=== PATIENT | female | born 1935 | race African-American/Black ===

== ENCOUNTER 2017-06-10 22:22 | Inpatient (IN) | payer MEDICARE, MEDICAID ==
[2017-06-10] MEDS ORDERED: Propofol 1,000 MG/100 ML VIAL IV ONE (22:29)
[2017-06-10] MEDS ORDERED: Labetalol HCl 100 MG/20 ML VIAL ONE (22:43)
[2017-06-10] MEDS ORDERED: Esmolol 2,500 MG/250 ML 250 ML ONE (23:02)
--- NOTE | 2017-06-10 23:04 | CT ---
CT BRAIN WITHOUT CONTRAST: History: Stroke activation, sudden onset of altered mental status, deviation to one side. 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 The ventricular size is appropriate and the basal cisterns patent. No evidence of acute infarct, hemorrhage, midline shift or abnormal extraaxial fluid collections are seen. The bony calvarium is intact. The visualized paranasal sinuses and mastoid air cells are well a erated. IMPRESSION: 1. No CT evidence of acute intracranial process. 2. Findings were discussed with ER physician at 1045 p.m. 06-10-17. POS: [facility]
--- NOTE | 2017-06-10 23:10 | RAD ---
PORTABLE CHEST ONE VIEW: Date: 06-10-17 Time: 10:22 p.m. History: Respiratory failure. FINDINGS/IMPRESSION: Left ventricular tube tip 1.5 cm above the level of the michelle. The NG tube is at the level of the cl avicular heads and should be advanced into the stomach. Heart size is normal. No focal areas of conso lidation, pneumothorax, or pleural effusions. There are degenerative changes. This report was called over the telephone to ER physician at 10:54 p.m. POS: [facility]
[2017-06-10 23:15] LABS: CO2 Tension 23.5 mmHg (35.0-45.0); pH, Arterial 7.63 (7.35-7.45)
[2017-06-10 23:16] LABS: Actual Bicarbonate (HCO3a) 24.2 mEq/L (22-26); Base Excess (BEa) 4.2 mEq/L (0 (+/-) 2.5); Hematocrit-ABG 38.9 % (36.0-47.0); Hemoglobin (Hb) 11.9 g/dL (12.0-16.0); O2 Tension (PaO2) 569.9 mmHg (80.0-100.0)
[2017-06-10 23:17] LABS: ALV-art Gradient 108.725 (0-20); Analyzer IN Cardio ER; Calcium, Ionized 1.1 mmol/L (1.12-1.30); Puncture Site RRA
[2017-06-10 23:38] LABS: Bilirubin Negative (Negative); Blood, Urine Trace (Negative); Clarity CLEAR (Clear); Glucose, Urine (Dipstick) Negative (Negative); Leukocyte Negative (Negative); Nitrite Negative (Negative); Protein, Urine (Dipstick) Negative (Neg-Trace); Specific Gravity, Urine 1.018 (1.002-1.036); Urobilinogen 0.2 mg/dL (0.2-1.0)
[2017-06-10 23:41] LABS: Bacteria/HPF None Seen HPF (None Seen); Hyaline Casts/LPF 0-3 HYALINE CAST LPF (0-3 Hyaline); RBC/HPF 0-3 HPF (0-3); Squamous Epithelial None Seen HPF (0-3); WBC/HPF None Seen HPF (0-3)
[2017-06-10] MEDS ORDERED: Fentanyl 100 MCG/2 ML VIAL ONE (23:42)
--- NOTE | 2017-06-10 23:43 | CT ---
CT ANGIOGRAM OF THE HEAD WITH IV CONTRAST AND 3D POST PROCESSING CT ANGIOGRAM OF THE NECK WITH IV CONTRAS AND 3D POST PROCESSING CT PERFUSION OF THE HEAD: History: Altered mental status, seizure like activity, respiratory failure. FINDINGS: The vertebrae, basilar and carotid artery systems in the neck and head demonstrate good flow without significant focal stenosis, major branch occlusion or aneurysm formation. There is good blood volume on the perfusion scan with decreased mean transit time in a focal area of left MCA territory. IMPRESSION: Findings suspicious for post ischemic or postictal hyperperfusion in the left MCA territory. Findings discussed over the telephone with ER physician, Dr. Cook at 11:12 p.m. This exam was reviewed by Dr Avelino Christensen on 06/11/17 at 9 am and he concurs. POS: [facility]
[2017-06-10] MEDS ORDERED: fentaNYL Citrate/PF 2,000 MCG in Sodium Chloride 0.9% 60 ML IV SCH (23:44)
[2017-06-10 23:55] LABS: #Basophils 0.1 thou/uL (0.0-0.2); #Eosinphils 0.1 thou/uL (0.0-0.7); #Monocytes 0.3 thou/uL (0.11-0.59); #Neutrophils 4.1 thou/uL (1.40-6.50); %Basophils 0.9 % (0.0-1.0); %Lymphocytes 29.9 % (21.0-51.0); %Monocytes 4.4 % (0.0-10.0); %Neutrophils 62.9 % (42.0-75.0); Hemoglobin 13.8 g/dL (12.0-16.0); Mean Corpuscular HGB CONC 32.4 g/dL (32.0-36.0); Mean Corpuscular Hemoglobin 29.8 pg (27.0-31.0); Mean Corpuscular Volume 92.2 fl (81.0-99.0); Platelet Count 283 thou/uL (130-400); RBC Distribution Width 13.5 % (11.5-14.5); Red Blood Cell (RBC) Count 4.63 mill/uL (4.20-5.40); White Blood Cell (WBC) Count 6.5 thou/uL (4.8-10.8)
[2017-06-11 00:03] LABS: PTT 23.7 SEC (22.9-36.1); Prothrombin Time 13.2 SEC (12.0-14.7)
[2017-06-11 00:17] LABS: ALT (SGPT) 8 U/L (8-55); AST (SGOT) 18 U/L (5-34); Albumin 4.2 g/dL (3.4-4.8); Alkaline Phosphatase 99 U/L (40-150); Anion Gap 23 mmol/L (10-20); BUN (Urea Nitrogen) 15 mg/dL (9.8-20.1); Bilirubin, Total 0.9 mg/dL (0.2-1.2); Calc. Creatinine Clearance 0 mL/min (70-130); Calcium 9.8 mg/dL (7.8-10.44); Carbon Dioxide 23 mmol/L (23-31); Chloride 98 mmol/L (98-107); Estimated GFR-MDRD 52; Globulin 4.4 g/dL (2.4-3.5); Glucose 160 mg/dL (83-110); Protein, Total 8.6 g/dL (6.0-8.3); Sodium 141 mmol/L (136-145)
[2017-06-11 00:20] LABS: CKMB 2.6 ng/mL (0-6.6); Troponin I 0.024 ng/mL (< 0.028)
[2017-06-11 00:32] LABS: Potassium 2.6 mmol/L (3.5-5.1)
[2017-06-11] MEDS ORDERED: Acetaminophen 650 MG Suppository PR PRN (00:52)
[2017-06-11] MEDS ORDERED: CCU Electrolyte Replacement 1 EACH IVPB SCH (00:52)
[2017-06-11] MEDS ORDERED: Potassium Chloride 40 MEQ in Sodium Chloride 0.9% 250 ML 250 ML IVPB PRN (00:58)
[2017-06-11] MEDS ORDERED: Potassium Phosphate 15 MMOL in Sodium Chloride 0.9% 250 ML 250 ML IV PRN (00:58)
[2017-06-11] MEDS ORDERED: CCU ELECTROLYTE REPLACEMENT PROTOCOL FS PRN (00:58)
[2017-06-11] MEDS ORDERED: Potassium Chloride 40 MEQ in Premix Bag 1 BAG IVPB PRN (00:58)
[2017-06-11] MEDS ORDERED: Potassium Chloride 20 MEQ TAB PO PRN (00:58)
[2017-06-11] MEDS ORDERED: Potassium Phosphate 12 MMOL in Sodium Chloride 0.9% 250 ML 250 ML IV PRN (00:58)
[2017-06-11] MEDS ORDERED: Potassium Phosphate 9 MMOL in Sodium Chloride 0.9% 100 ML IVPB PRN (00:58)
[2017-06-11] MEDS ORDERED: Magnesium 2 GM/NS 0.9% 100 ML 2 GM in Premix Bag 1 BAG IVPB PRN (00:58)
[2017-06-11] MEDS ORDERED: Magnesium Oxide 400 MG TAB PO PRN (00:58)
[2017-06-11] MEDS ORDERED: Sedation Protocol FS SCH (01:42)
[2017-06-11] MEDS ORDERED: Propofol 1,000 MG/100 ML VIAL IV ONE (01:43)
[2017-06-11] MEDS: Potassium Chloride 40 MEQ in Sodium Chloride 0.9% 250 ML 250 ML IVPB SCH ×2 (01:49→11:07)
[2017-06-11] MEDS ORDERED: DISCONTINUE PREVIOUS NARCOTIC PAIN MEDICATIONS AND BENZODIAZEPINES FS SCH (01:50)
[2017-06-11] MEDS ORDERED: Fentanyl BOLUS 250 ML IVPB PRN (01:50)
[2017-06-11] MEDS ORDERED: Propofol 1,000 MG/100 ML VIAL IV PRN (01:50)
[2017-06-11] MEDS ORDERED: Lorazepam 2 MG/ML VIAL SLOW IVP PRN (01:50)
[2017-06-11] MEDS ORDERED: Morphine 2 MG/ML SYRINGE SLOW IVP PRN (01:50)
--- NOTE | 2017-06-11 02:11 | HP ---
PRIMARY CARE PHYSICIAN: Unknown. PRESENTING COMPLAINT: Seizures and loss of consciousness. HISTORY OF PRESENT ILLNESS: Ms. Roxie Mcmillan is an 81-year-old female with hypertension, hypothyroidism and CHF, who was at a family function earlier today after which she became altered mentally. Her family reported her face deviated to one side and she had what they thought was a seizure. EMS was immediately called and they found the patient to be vomiting and due to fears that she might be unable to protect the airway, she was intubated. Her blood pressure in the field was in the 260 systolic. At the emergency room, she was markedly hypertensive with blood pressure running between [address] brain done immediately showed no evidence of acute intracranial processes. She had a head/neck CTA with brain perfusion, which find areas of suspicious for ischemia in the MCA territory on the left. Dr. Cabezas, neurologist, was called, but the patient was not deemed to be a candidate for TPA due to her markedly elevated blood pressure. She was then started on esmolol drip to keep the systolic blood pressure around 200 and diastolic blood pressure around 180s. She was also started on fentanyl as well. PAST MEDICAL HISTORY: Hypertension, CHF, and hypothyroidism. PAST SURGICAL HISTORY: Left hip surgery. PSYCHIATRIC HISTORY: None. FAMILY HISTORY: Reviewed and noncontributory. SOCIAL HISTORY: Unable to obtain as the patient is currently intubated. ALLERGIES: No known drug allergies. REVIEW OF SYSTEMS: Unable to obtain as the patient is intubated. HOME MEDICATIONS: Reviewed and charted. PHYSICAL EXAMINATION: GENERAL: Not in acute distress, intubated, sedated. HEENT: Not pale, anicteric. Moist mucosa. Normocephalic, atraumatic. NECK: Supple, no JVD. RESPIRATORY: Vesicular breath sounds bilaterally. No wheezes or rales. CARDIOVASCULAR: Regular rate and rhythm, S1 and S2 only. No murmurs, rubs or gallops. GASTROINTESTINAL: Bowel sounds positive. Soft, nontender, nondistended, no organomegaly. MUSCULOSKELETAL: No obvious musculoskeletal abnormalities. SKIN: Warm, dry, well perfused. No rashes or lesions. NEUROLOGIC: Unable to cooperate with exam as the patient is sedated. PSYCHIATRIC: Unable to cooperate with exam as intubated. LABORATORY DATA: Hematology was unremarkable. INR was 1. ABG showed pH of 7.63, pCO2 of 23 and pO2 of 569. Chemistry reveals normal sodium, potassium of 2.6, BUN/creatinine of 15 and 1.20 respectively. Initial troponin was 0.024. IMAGING: CT brain and head and neck CTA as above. Chest x-ray showed no focal areas of consolidation, pneumothorax, or pleural effusion. ASSESSMENT AND PLAN: 1. Acute respiratory failure with hypoxia. This is likely from a cardiovascular accident based on CTA findings. We will allow for permissive hypertension. While intubated, we will follow VAP bundle and continue to monitor blood pressure closely. 2. Hypertensive emergency: Likely 2/2 CVA. her SBP was initially in the 260s. We will continue esmolol drip, but monitor blood pressure carefully as we are allowing for permissive hypertension due to possible cerebrovascular accident. We will consult Neurology. The patient will likely benefit from an MRI, but we will leave this decision up to the day team and neurology, once patient is more stable. 3. Hypothyroidism. We will hold p.o. medications for now. 4. Congestive heart failure. The patient not in acute exacerbation. We will hold all oral medications for now. 5. Hypokalemia: Will replete parenterally. MTDD
[2017-06-11 04:12] LABS: #Lymphocytes 1.3 thou/uL (1.20-3.40); #Monocytes 0.6 thou/uL (0.11-0.59); #Neutrophils 7.6 thou/uL (1.40-6.50); %Basophils 0.2 % (0.0-1.0); %Eosinophils 0.5 % (0.0-10.0); %Lymphocytes 13.8 % (21.0-51.0); %Monocytes 6.2 % (0.0-10.0); %Neutrophils 79.3 % (42.0-75.0); Hemoglobin 12.2 g/dL (12.0-16.0); Mean Corpuscular HGB CONC 32.2 g/dL (32.0-36.0); Mean Corpuscular Hemoglobin 29.3 pg (27.0-31.0); Mean Corpuscular Volume 90.9 fl (81.0-99.0); Mean Platelet Volume 8.4 fL (7.4-10.4); Platelet Count 250 thou/uL (130-400); RBC Distribution Width 13.5 % (11.5-14.5); Red Blood Cell (RBC) Count 4.17 mill/uL (4.20-5.40); White Blood Cell (WBC) Count 9.5 thou/uL (4.8-10.8)
[2017-06-11 04:22] LABS: ALT (SGPT) 10 U/L (8-55); AST (SGOT) 23 U/L (5-34); Albumin 3.8 g/dL (3.4-4.8); Alkaline Phosphatase 89 U/L (40-150); Anion Gap 20 mmol/L (10-20); BUN (Urea Nitrogen) 15 mg/dL (9.8-20.1); Bilirubin, Total 0.6 mg/dL (0.2-1.2); Calc. Creatinine Clearance 46 mL/min (70-130); Calcium 9.3 mg/dL (7.8-10.44); Carbon Dioxide 27 mmol/L (23-31); Cardiac Risk 2.8 (Less than 4.5); Chloride 99 mmol/L (98-107); Cholesterol 207 mg/dl (< 200 Desired); Estimated GFR-MDRD 54; Globulin 3.6 g/dL (2.4-3.5); Glucose 160 mg/dL (83-110); HDL Cholesterol 74 mg/dL (>60 Neg Risk); LDL Cholesterol, Calculated 117 mg/dL; Magnesium 1.4 mg/dL (1.6-2.6); Potassium 3.1 mmol/L (3.5-5.1); Protein, Total 7.4 g/dL (6.0-8.3); Sodium 143 mmol/L (136-145); Triglycerides 79 mg/dL (Less than 150)
[2017-06-11 04:25] LABS: Troponin I 0.032 ng/mL (< 0.028)
[2017-06-11 08:04] LABS: Actual Bicarbonate (HCO3a) 30.1 mEq/L (22-26); Base Excess (BEa) 5.4 mEq/L (0 (+/-) 2.5); CO2 Tension 44.8 mmHg (35.0-45.0); Hematocrit-ABG 15.8 % (36.0-47.0); Hemoglobin (Hb) 11.1 g/dL (12.0-16.0); O2 Tension (PaO2) 194.4 mmHg (80.0-100.0); pH, Arterial 7.45 (7.35-7.45)
[2017-06-11 08:05] LABS: Calcium, Ionized 1.1 mmol/L (1.12-1.30); Puncture Site RRA
[2017-06-11 08:17] LABS: Troponin I 0.052 ng/mL (< 0.028)
[2017-06-11] MEDS ORDERED: Famotidine/PF 20 mg/2ml Vial SLOW IVP SCH (09:00)
--- NOTE | 2017-06-11 09:58 | PDOC.PN ---
- Subjective Encounter Start Date: 06/11/17 Encounter Start Time: 09:56 Subjective: arouses easily, follows directions - Objective MAR Reviewed: Yes Vital Signs & Weight: Vital Signs (12 hours) Temp Pulse Resp BP Pulse Ox 06/11/17 08:00 98.5 F 06/11/17 07:23 61 126/57 L 100 06/11/17 05:00 98.4 F 06/11/17 04:00 11 L 06/11/17 02:00 11 L 06/11/17 01:49 98.5 F 06/11/17 01:39 98.5 F 67 14 100 Most Recent Monitor Data Heart Rate from ECG 59 NIBP 159/74 NIBP BP-Mean 92 Respiration from ECG 20 SpO2 99 I&O: 06/10/17 06/11/17 06/12/17 06:59 06:59 06:59 Intake Total 274.2 Output Total 615 160 Balance -340.8 -160 Result Diagrams: 06/11/17 03:24 06/11/17 03:29 Phys Exam - Physical Examination Neck: no JVD Respiratory: clear to auscultation bilateral Cardiovascular: RRR Gastrointestinal: soft, non-tender, positive bowel sounds Musculoskeletal: no edema Neurological: non-focal Dx/Plan (1) Hypertensive crisis Code(s): I16.9 - HYPERTENSIVE CRISIS, UNSPECIFIED Status: Acute (2) Acute respiratory failure Code(s): J96.00 - ACUTE RESPIRATORY FAILURE, UNSP W HYPOXIA OR HYPERCAPNIA Status: Acute Qualifiers: Respiratory failure complication: unspecified whether with hypoxia or hypercapnia Qualified Code(s): J96.00 - Acute respiratory failure, unspecified whether with hypoxia or hypercapnia (3) CVA (cerebral vascular accident) Code(s): I63.9 - CEREBRAL INFARCTION, UNSPECIFIED Status: Acute Qualifiers: CVA mechanism: unspecified Qualified Code(s): I63.9 - Cerebral infarction, unspecified (4) Heart failure Code(s): I50.9 - HEART FAILURE, UNSPECIFIED Status: Acute Qualifiers: Heart failure chronicity: unspecified - Plan discuss with manager order, -: MRI today if possible -: control BP -: antiplatelett tx * .
--- NOTE | 2017-06-11 10:32 | CON ---
DATE OF CONSULTATION: 06/11/2017 This is an 81-year-old female. There are no family members present to get additional information. Angel acevedo planned to be here all night. Apparently with acute mental status change. Emergency CT of the h ead was negative. Chest x-ray was normal, but CT head perfusion scan reveals a left middle cerebral artery distribution cerebrovascular accident. She was intubated by the ER physician as noted and apparently had seizure-like activity. She was giv en 27 mg of Etomidate, 19 mg of , 2 mg Ativan. X-ray shows no acute infiltrates. PAST MEDICAL HISTORY: Pertinent for hypothyroidism, hypertension, coronary artery disease, chest evy n, obesity. As noted is pertinent for otherwise CHF, hypothyroidism. PAST SURGICAL HISTORY: Left hip surgery. Abdominal surgery. SOCIAL HISTORY: Apparently she chews tobacco, sometimes smokes. No alcohol abuse. MEDICATIONS: List of medicine from home; metformin 500 twice a day, Zoloft 50, pravastatin 20, potas sium, Lasix 40, Coreg 25, amlodipine 1. ALLERGIES: None. SOCIAL/FAMILY HISTORY: Unremarkable. REVIEW OF SYSTEMS: Ten point negative. PHYSICAL EXAMINATION: VITAL SIGNS: Blood pressure is 130/80, pulse 100, respiration 20. She is sedated. She does open he r eyes. HEENT: Pupils are equal. CHEST: Chest reveals decreased breath sounds, no wheezing. CARDIAC: Normal S1-S2. ABDOMEN: Soft. No mass. NEUROLOGIC: She moves all 4 extremities. LABORATORY AND X-RAY FINDINGS: White count 9000, H&H is 12 and 37, platelet count 250. PO2 is 194, pH 7.44, on a rate of 10, 50%, 4 tidal volume. Creatinine is 1.17. IMPRESSION: 1. Finding suspicious for a left middle cerebral artery distribution ischemia. 2. Metastatic . 3. Possible seizure activity. 4. Hypertension. 5. History of chest pain. PLAN: Minimize sedation. Await input from Neurology. Pulmonary, we will hold off vent and sedation until the patient is more awake. I will follow. Forty-five minute critical care time.
[2017-06-11] MEDS: Aspirin 325 mg Enteric Coated Tablet PO SCH (11:05)
--- NOTE | 2017-06-11 15:23 | CON ---
DATE OF CONSULTATION: 06/11/2017 REASON FOR CONSULTATION: Transient bradycardia and the patient had hypertensive emergency and likely stroke. HISTORY OF PRESENT ILLNESS: Ms. Mcmillan is an 81-year-old woman. She was admitted to the hospital w ith hypertensive encephalopathy and possible stroke. The patient was brought to the hospital from what I can tell, late last night with seizures and loss of consciousness. She has had a family function yesterday when she had altered mental status. EMS w as called. Her blood pressure was 260 systolic, even in the emergency room her blood pressure was 20 0-225 systolic. She had rapid evaluation, was found to not be a candidate for TPA or other reperfusi on. She is intubated and is on the ventilator currently. PAST MEDICAL HISTORY: 1. Severe hypertension. 2. ? CHF. 3. Hypothyroidism. PAST SURGICAL HISTORY: Left hip surgery. PSYCHIATRIC HISTORY: None. FAMILY HISTORY: Not obtainable. She is on the ventilator. SOCIAL HISTORY: Not obtainable. She is on the ventilator. ALLERGIES: None known. REVIEW OF SYSTEMS: Not obtainable on the ventilator. MEDICATIONS: Listed in the chart were pravastatin, furosemide, carvedilol 25 mg twice a day, amlodip ine/benazepril 10/40 a day, and metformin. PHYSICAL EXAMINATION: GENERAL: This is an elderly woman resting comfortably on the ventilator now. VITAL SIGNS: Her blood pressure 134/66, pulse 60. HEENT: Eyes, sclerae nonicteric. Mouth, mucous membranes moist. NECK: Supple, no lymphadenopathy. LUNGS: Clear, no wheezing, rales or rhonchi. CARDIAC: Normal S1, normal S2. There is no murmur, rub or gallop. ABDOMEN: Soft, nontender, no hepatosplenomegaly. EXTREMITIES: Warm, dry, no clubbing, no cyanosis, no edema. HEMATOLOGIC: No unusual bruising. GENITOURINARY: Not examined. SKIN: Warm and dry. PERTINENT LABORATORY DATA AND X-RAY FINDINGS: Her hemoglobin is 12.2. The arterial blood gas last n ight was pH 7.63, pCO2 is 23.5, pO2 is 569. More recent blood gas pH 7.45, pCO2 44.8, pO2 194. Look ing at EKG, she did have some transient bradycardia last night at 2:00 a.m. No significant bradycard ia during the day shift that I see. Reviewing the cardiac history, she did have a heart catheterizat ion in 2011 which was normal. Troponin 0.0152, likely demand ischemia in the indeterminate range. ASSESSMENT: 1. Hypertensive encephalopathy with hypertensive emergency. 2. Hypokalemia. 3. Transient bradycardia, seems to resolve. 4. History of normal coronary arteries. PLAN: Continue to treat blood pressure. We will do echocardiogram. I will be glad to follow with aldo daily during this admission, pacemaker not indicated at this point.
[2017-06-11] MEDS ORDERED: Sodium Bicarbonate Tab 325 MG TAB PER TUBE PRN (19:37)
[2017-06-11] MEDS ORDERED: Pancrelipase DR 12000 1 CAP FS PRN (19:37)
[2017-06-11] MEDS ORDERED: Famotidine 40 MG/4 ML VIAL SLOW IVP SCH (21:00)
--- NOTE | 2017-06-12 00:30 | CON ---
DATE OF CONSULTATION: 06/11/2017 REFERRING PROVIDER: Asad Gerber M.D. REASON FOR CONSULTATION: Seizure. HISTORY OF PRESENT ILLNESS: Ms. Mcmillan is an 81-year-old -[place] female who has been consulted for evaluation of seizure. History is very limited as patient is intubated and there are no family members present at bedside, thus most of the history is obtained from the patient's medical chart and dictated H and P note. Apparently, the patient has a history of hypertension, hypothyroidism, CHF. She was at a family function and where she was noted to become altered mental status. Her family had witnessed that her face was deviated to one side and she had what they thought was a seizure-like episode. They had called EMS on arrival. EMS had noticed that she was vomiting and in fear for her unable to protect the airway, she was intubated on field. Her blood pressure was noted to be 260 systolic and on emergency room, her blood pressure continued to be 200 to 225 systolic[address] She had a [address] angiogram and CT perfusion scan done. CT perfusion scan showed small area of perfusion mismatch defect in the left posterior parietal region. However, she was not a candidate for TPA as her blood pressure was very high. The patient has not had any seizure type of episodes since being admitted to the hospital. PAST MEDICAL HISTORY: Significant for hypertension, CHF, and hypothyroidism. PAST SURGICAL HISTORY: Significant for left hip surgery. SOCIAL HISTORY: Unable to obtain. FAMILY HISTORY: Unable to obtain. CURRENT MEDICATIONS: Unable to obtain. ALLERGIES: No known drug allergies. REVIEW OF SYSTEMS: Unable to obtain. PHYSICAL EXAMINATION: VITAL SIGNS: Blood pressure of 114/56, pulse of 70, temperature of 99.3, respirations of 15, O2 saturations are 100% on mechanical ventilation. GENERAL: Well-developed, well-nourished appearing female, intubated and sedated. RESPIRATORY: Clear to auscultation bilaterally. CARDIOVASCULAR: Regular rate and rhythm. NEUROLOGIC: Mental status: The patient is intubated and sedated with propofol. She does not respond to verbal stimuli. She does withdraw to noxious stimuli. Cranial nerves: Pupils are 3 mm and reactive. Corneal reflexes are present bilaterally. She does have cough and gag reflex and she does breathe over the ventilator machine. Motor exam showed normal tone and bulk in both upper and lower extremities. She purposefully withdraws to supraorbital pressure bilaterally. She withdraws to noxious stimuli in both upper and lower extremities. Her strength appears 5/5 when she is withdrawing to pain. LABORATORY DATA: Reviewed, which included CBC, coag panel, CMP, urinalysis, which is significant for potassium of 3.1, glucose of 160. Troponin 0.052. Total cholesterol of 207, LDL of 117, HDL of 74, triglycerides of 79, otherwise unremarkable. IMAGING STUDIES: CT head without contrast was reviewed which showed no acute intracranial abnormality. CT angiogram of the head and neck were reviewed, which showed no acute intracranial or extracranial vascular abnormality. CT perfusion scan showed perfusion defect in the left parietal region in the inferior division of the MCA territory, otherwise, unremarkable. IMPRESSION: 1. Questionable seizure. 2. Malignant hypertension. 3. Hypertensive urgency. Ms. Mcmillan is an 81-year-old -[place] female with history of hypertension, diabetes, and hyperlipidemia who presented with the changes in mentation and seizure type activity. At this time, I would recommend obtaining MRI brain without contrast when medically stable. I would recommend obtaining EEG in the morning. I will recommend starting her on Keppra 500 mg b.i.d. Continue supportive care. Thank you for your consultation. CHERRY
[2017-06-12 05:46] LABS: #Basophils 0.1 thou/uL (0.0-0.2); #Eosinphils 0.1 thou/uL (0.0-0.7); #Lymphocytes 2.2 thou/uL (1.20-3.40); #Monocytes 0.9 thou/uL (0.11-0.59); #Neutrophils 10.7 thou/uL (1.40-6.50); %Basophils 0.5 % (0.0-1.0); %Eosinophils 0.5 % (0.0-10.0); %Lymphocytes 15.6 % (21.0-51.0); %Monocytes 6.6 % (0.0-10.0); %Neutrophils 76.8 % (42.0-75.0); Hemoglobin 11.6 g/dL (12.0-16.0); Mean Corpuscular HGB CONC 32.4 g/dL (32.0-36.0); Mean Corpuscular Hemoglobin 29.6 pg (27.0-31.0); Mean Corpuscular Volume 91.2 fl (81.0-99.0); Mean Platelet Volume 7.9 fL (7.4-10.4); Platelet Count 251 thou/uL (130-400); RBC Distribution Width 13.8 % (11.5-14.5); Red Blood Cell (RBC) Count 3.91 mill/uL (4.20-5.40); White Blood Cell (WBC) Count 13.9 thou/uL (4.8-10.8)
[2017-06-12 06:04] LABS: ALT (SGPT) Less than 7 U/L (8-55); AST (SGOT) 11 U/L (5-34); Albumin 3.4 g/dL (3.4-4.8); Alkaline Phosphatase 73 U/L (40-150); Anion Gap 14 mmol/L (10-20); BUN (Urea Nitrogen) 27 mg/dL (9.8-20.1); Bilirubin, Total 0.4 mg/dL (0.2-1.2); Calc. Creatinine Clearance 57 mL/min (70-130); Calcium 8.5 mg/dL (7.8-10.44); Carbon Dioxide 29 mmol/L (23-31); Chloride 105 mmol/L (98-107); Estimated GFR-MDRD 69; Globulin 3.4 g/dL (2.4-3.5); Glucose 134 mg/dL (83-110); Magnesium 1.5 mg/dL (1.6-2.6); Potassium 4.2 mmol/L (3.5-5.1); Protein, Total 6.8 g/dL (6.0-8.3); Sodium 144 mmol/L (136-145)
[2017-06-12 07:16] LABS: Actual Bicarbonate (HCO3a) 32.7 mEq/L (22-26); Base Excess (BEa) 7.5 mEq/L (0 (+/-) 2.5); CO2 Tension 49.2 mmHg (35.0-45.0); Calcium, Ionized 1.1 mmol/L (1.12-1.30); Hematocrit-ABG 31.5 % (36.0-47.0); Hemoglobin (Hb) 9.9 g/dL (12.0-16.0); O2 Tension (PaO2) 131.7 mmHg (80.0-100.0); pH, Arterial 7.44 (7.35-7.45)
[2017-06-12 07:17] LABS: Puncture Site L.R.
[2017-06-12] MEDS: Magnesium Oxide 400 MG TAB PO PRN ×2 (07:22→10:29)
--- NOTE | 2017-06-12 07:44 | RAD ---
CHEST 1 VIEW: HISTORY: Dyspnea. Followup. COMPARISON: 06/10/17. FINDINGS: Cardiac silhouette is magnified and upper limits of normal in size. Pulmonary vasculature is slightl y engorged. In addition to mild patchy bibasilar infiltrates, there is more focal airspace opacity a t the right posterior medial lung base. The tip of the endotracheal catheter remains at the level of the michelle, just to the right of midline. Nasogastric tube descends to the stomach. Cardiac monito r leads overlie the chest. IMPRESSION: 1. Worsening right posterior medial basilar infiltrate. Clinical correlation regarding other signs and symptoms of right basilar pneumonitis versus atelectasis is required. 2. Endotracheal catheter tip remains at the level of the michelle. Please consider withdrawing the ca theter approximately 3 cm for better positioning. POS: [facility]
[2017-06-12] MEDS ORDERED: DC Sedation Protocol FS ONE (08:21)
--- NOTE | 2017-06-12 08:48 | PRG ---
DATE OF SERVICE: 06/12/2017 This morning she remains encephalopathic, low dose Diprivan. PHYSICAL EXAMINATION: VITAL SIGNS: Temperature 100.2, pulse 78, respirations 16, sats 100%. I's and O's the last 24 hours have been 114 in, difficulty with the output. CHEST: Chest reveals decreased breath sounds, rhonchi. CARDIAC: Normal S1, S2, no gallops. ABDOMEN: Soft, no masses. LABORATORY DATA: White count 20,000, H&H 11 and 35, platelet count 251, pO2 is 131, pCO2 of 744, rat e of 10, 40%. Electrolytes are normal. Troponin is slightly elevated. X-ray shows endotracheal tube in the right main stem bronchus. Quest ion of infiltrate. Neurology saw her yesterday. She is clearly moving all 4 extremities, though she is clearly encephalopathic. IMPRESSION: 1. Questionable seizure. 2. Hypertension. 3. Abnormal CT neck angio. PLAN: I am going to extubate her. Avoid all sedation. Continue PT. Continue observation in the ICU. I will follow. One-half hour critical care time.
--- NOTE | 2017-06-12 09:10 | PDOC.PN ---
- Subjective Encounter Start Date: 06/12/17 Encounter Start Time: 09:07 Subjective: extubated, encephalopathic - Objective MAR Reviewed: Yes Vital Signs & Weight: Vital Signs (12 hours) Temp Pulse Resp BP Pulse Ox 06/12/17 08:00 100.2 F H 78 16 06/12/17 06:53 54 L 113/53 L 06/12/17 06:00 10 L 06/12/17 04:00 98.5 F 10 L 06/12/17 02:55 58 L 151/70 H 100 06/12/17 02:00 10 L 06/12/17 00:00 98.6 F 10 L 06/11/17 22:58 60 133/58 L 06/11/17 22:00 10 L Weight Admit Weight 166 lb 7.184 oz Weight 167 lb 12.348 oz Most Recent Monitor Data Heart Rate from ECG 69 NIBP 138/59 NIBP BP-Mean 79 Respiration from ECG 12 SpO2 100 I&O: 06/11/17 06/12/17 06/13/17 06:59 06:59 06:59 Intake Total 274.2 1114 Output Total 615 1114 35 Balance -340.8 0 -35 Result Diagrams: 06/12/17 05:34 06/12/17 05:34 Phys Exam - Physical Examination Neck: no JVD coarse with rhonchi, rales RLL Cardiovascular: no significant murmur Gastrointestinal: soft, positive bowel sounds Musculoskeletal: edema present Dx/Plan (1) Hypertensive crisis Code(s): I16.9 - HYPERTENSIVE CRISIS, UNSPECIFIED Status: Acute (2) Acute respiratory failure Code(s): J96.00 - ACUTE RESPIRATORY FAILURE, UNSP W HYPOXIA OR HYPERCAPNIA Status: Resolved Qualifiers: Respiratory failure complication: unspecified whether with hypoxia or hypercapnia Qualified Code(s): J96.00 - Acute respiratory failure, unspecified whether with hypoxia or hypercapnia (3) CVA (cerebral vascular accident) Code(s): I63.9 - CEREBRAL INFARCTION, UNSPECIFIED Status: Acute Qualifiers: CVA mechanism: unspecified Qualified Code(s): I63.9 - Cerebral infarction, unspecified (4) Heart failure Code(s): I50.9 - HEART FAILURE, UNSPECIFIED Status: Acute Qualifiers: Heart failure chronicity: unspecified (5) PNA (pneumonia) Code(s): J18.9 - PNEUMONIA, UNSPECIFIED ORGANISM Status: Acute Qualifiers: Pneumonia type: due to unspecified organism Laterality: right Lung location: lower lobe of lung Qualified Code(s): J18.1 - Lobar pneumonia, unspecified organism (6) Encephalopathy Code(s): G93.40 - ENCEPHALOPATHY, UNSPECIFIED Status: Acute - Plan [employer] SM[employer] in progress-EEG -: blood C&C, in antibx for PNA -: cont asa, add statin * .
[2017-06-12] MEDS: Aspirin 325 mg Enteric Coated Tablet PO SCH (10:29)
[2017-06-12] MEDS: Cefepime 2 GM, Syringe 2.5 ML in Sodium Chloride 0.9% 10 ML SLOW IVP SCH ×2 (11:39→22:52)
--- NOTE | 2017-06-12 20:32 | PRG ---
DATE OF SERVICE: 06/12/2017 SUBJECTIVE: Ms. Mcmillan is extubated. She is still somewhat confused, but improving. PHYSICAL EXAMINATION: VITAL SIGNS: Her blood pressure is 150/70, pulse is 87, sinus. There is no bradycardia. LUNGS: Clear. CARDIAC: Normal S1, normal S2. ASSESSMENT: 1. Hypertensive emergency, improved. 2. Bradycardia, no recurrence. PLAN: She has been treated for hypertension. We will sign off at this point as there does not seem to be recurrent bradycardia. My partners will be available if there are any further problems.
[2017-06-12] MEDS: Atorvastatin Calcium 20 MG TAB PO SCH (20:36)
[2017-06-12] MEDS: Famotidine 40 MG/4 ML VIAL SLOW IVP SCH (20:40)
[2017-06-12] MEDS ORDERED: Cefepime 2 GM in Sodium Chloride 0.9% 100 ML IVPB SCH (21:00)
[2017-06-13 04:58] LABS: #Eosinphils 0.2 thou/uL (0.0-0.7); #Lymphocytes 2.1 thou/uL (1.20-3.40); #Monocytes 0.6 thou/uL (0.11-0.59); #Neutrophils 8.2 thou/uL (1.40-6.50); %Basophils 0.1 % (0.0-1.0); %Lymphocytes 19.1 % (21.0-51.0); %Monocytes 5.3 % (0.0-10.0); %Neutrophils 73.5 % (42.0-75.0); Hemoglobin 11.3 g/dL (12.0-16.0); Mean Corpuscular HGB CONC 32.4 g/dL (32.0-36.0); Mean Corpuscular Hemoglobin 29.5 pg (27.0-31.0); Mean Corpuscular Volume 91.2 fl (81.0-99.0); Mean Platelet Volume 7.8 fL (7.4-10.4); Platelet Count 257 thou/uL (130-400); RBC Distribution Width 13.5 % (11.5-14.5); Red Blood Cell (RBC) Count 3.83 mill/uL (4.20-5.40); White Blood Cell (WBC) Count 11.1 thou/uL (4.8-10.8)
[2017-06-13 05:22] LABS: ALT (SGPT) Less than 7 U/L (8-55); AST (SGOT) 13 U/L (5-34); Albumin 3.2 g/dL (3.4-4.8); Alkaline Phosphatase 69 U/L (40-150); Anion Gap 12 mmol/L (10-20); BUN (Urea Nitrogen) 20 mg/dL (9.8-20.1); Bilirubin, Total 0.4 mg/dL (0.2-1.2); Calc. Creatinine Clearance 60 mL/min (70-130); Calcium 8.9 mg/dL (7.8-10.44); Carbon Dioxide 30 mmol/L (23-31); Chloride 106 mmol/L (98-107); Estimated GFR-MDRD 73; Globulin 3.5 g/dL (2.4-3.5); Glucose 95 mg/dL (83-110); Magnesium 1.6 mg/dL (1.6-2.6); Potassium 3.5 mmol/L (3.5-5.1); Protein, Total 6.7 g/dL (6.0-8.3); Sodium 144 mmol/L (136-145)
[2017-06-13] MEDS: Magnesium Oxide 400 MG TAB PO PRN (06:08)
--- NOTE | 2017-06-13 07:57 | PDOC.PN ---
- Subjective Encounter Start Date: 06/13/17 Encounter Start Time: 07:56 Subjective: alert, oriented to person, place - Objective MAR Reviewed: Yes Vital Signs & Weight: Vital Signs (12 hours) Temp Pulse Resp Pulse Ox 06/13/17 07:47 72 14 06/13/17 04:00 97.9 F 06/13/17 00:00 98.3 F 06/12/17 23:21 78 18 98 Weight Admit Weight 166 lb 7.184 oz Weight 167 lb 14.4 oz Most Recent Monitor Data Heart Rate from ECG 75 NIBP 175/89 NIBP BP-Mean 133 Respiration from ECG 24 SpO2 99 I&O: 06/12/17 06/13/17 06/14/17 06:59 06:59 06:59 Intake Total 1114 1704.4 Output Total 1114 2205 Balance 0 -500.6 Result Diagrams: 06/13/17 04:43 06/13/17 04:43 Radiology Reviewed by me: Yes (cxr, R sided infiltrate stable) Phys Exam - Physical Examination Neck: no JVD Respiratory: clear to auscultation bilateral Cardiovascular: RRR, no significant murmur Gastrointestinal: soft, non-tender, positive bowel sounds Musculoskeletal: no edema Dx/Plan (1) Hypertensive crisis Code(s): I16.9 - HYPERTENSIVE CRISIS, UNSPECIFIED Status: Acute (2) Acute respiratory failure Code(s): J96.00 - ACUTE RESPIRATORY FAILURE, UNSP W HYPOXIA OR HYPERCAPNIA Status: Resolved Qualifiers: Respiratory failure complication: unspecified whether with hypoxia or hypercapnia Qualified Code(s): J96.00 - Acute respiratory failure, unspecified whether with hypoxia or hypercapnia (3) CVA (cerebral vascular accident) Code(s): I63.9 - CEREBRAL INFARCTION, UNSPECIFIED Status: Acute Qualifiers: CVA mechanism: unspecified Qualified Code(s): I63.9 - Cerebral infarction, unspecified (4) Heart failure Code(s): I50.9 - HEART FAILURE, UNSPECIFIED Status: Acute Qualifiers: Heart failure chronicity: unspecified (5) PNA (pneumonia) Code(s): J18.9 - PNEUMONIA, UNSPECIFIED ORGANISM Status: Acute Qualifiers: Pneumonia type: due to unspecified organism Laterality: right Lung location: lower lobe of lung Qualified Code(s): J18.1 - Lobar pneumonia, unspecified organism (6) Encephalopathy Code(s): G93.40 - ENCEPHALOPATHY, UNSPECIFIED Status: Acute - Plan clinically improved, mentation improved -: cont iv antibx -: cont asa, statin -: transfer to stroke * .
[2017-06-13 08:54] VITALS: BMI 26.3
--- NOTE | 2017-06-13 08:57 | RAD ---
AP CHEST: History: 81-year-old with respiratory distress. Ventilator dependent. Date: 06-13-17 Comparison: 06-12-17 FINDINGS: AP chest demonstrates interval extubation of the patient and removal of the NG tube. EKG leads seen o robert the chest. Mild to moderate pulmonary vascular congestion is seen. No evidence of effusions seen. No other significant interval changes seen. IMPRESSION: 1. Interval extubation of the patient. 2. Pulmonary vascular congestion. POS: [facility]
[2017-06-13] MEDS ORDERED: FLU VACC TS2017-18 (>65YR) 0.5 ML SYRINGE IM ONE (09:00)
[2017-06-13] MEDS ORDERED: Non-Formulary Item 1 EACH (Amlodipine Besylate/Benazepril [Amlodipine Besylate/Benazepril PO SCH (09:00)
[2017-06-13] MEDS ORDERED: Carvedilol 3.125 MG TAB PO SCH (09:00)
[2017-06-13] MEDS ORDERED: Prevnar 13-Val Conj/PF 0.5 ML SYRINGE IM ONE (09:00)
[2017-06-13] MEDS: Aspirin 325 mg Enteric Coated Tablet PO SCH (09:20)
[2017-06-13] MEDS: Furosemide 40 MG TAB PO SCH ×2 (09:20→22:05)
[2017-06-13] MEDS: Carvedilol 25 MG TAB PO SCH ×2 (09:20→22:05)
[2017-06-13] MEDS: Amlodipine 5 mg/Benazepril 20 mg CAP PO SCH (09:41)
[2017-06-13] MEDS: Cefepime 2 GM, Syringe 2.5 ML in Sodium Chloride 0.9% 10 ML SLOW IVP SCH ×2 (10:52→23:31)
--- NOTE | 2017-06-13 13:34 | PRG ---
DATE OF SERVICE: 06/13/2017 SUBJECTIVE: Hipolito is awake, alert and responsive. X-ray is pretty much clear, slightly encephalop athic. PHYSICAL EXAMINATION: VITAL SIGNS: Sats are 90% room air, temperature 98, pulse 72, blood pressure 175/89. CHEST: Decreased breath sounds, no wheezing. CARDIAC: Normal S1, S2, no masses. IMPRESSION: 1. Status post respiratory failure. 2. Encephalopathy with cerebrovascular accident. She will be transferred out of the ICU. We will switch over to oral antibiotics. Anti-seizure medication for presumed seizures. Cultures so far negative. We will follow.
[2017-06-13] MEDS: Atorvastatin Calcium 20 MG TAB PO SCH (22:05)
[2017-06-13] MEDS: Famotidine 40 MG/4 ML VIAL SLOW IVP SCH (23:30)
[2017-06-14 05:40] LABS: #Eosinphils 0.2 thou/uL (0.0-0.7); #Lymphocytes 1.5 thou/uL (1.20-3.40); #Monocytes 0.6 thou/uL (0.11-0.59); #Neutrophils 5.5 thou/uL (1.40-6.50); %Basophils 0.6 % (0.0-1.0); %Eosinophils 2.9 % (0.0-10.0); %Lymphocytes 18.8 % (21.0-51.0); %Monocytes 7.1 % (0.0-10.0); %Neutrophils 70.6 % (42.0-75.0); Hemoglobin 10.4 g/dL (12.0-16.0); Mean Corpuscular HGB CONC 31.3 g/dL (32.0-36.0); Mean Corpuscular Hemoglobin 28.3 pg (27.0-31.0); Mean Corpuscular Volume 90.5 fl (81.0-99.0); Mean Platelet Volume 7.9 fL (7.4-10.4); Platelet Count 274 thou/uL (130-400); RBC Distribution Width 13.2 % (11.5-14.5); Red Blood Cell (RBC) Count 3.66 mill/uL (4.20-5.40); White Blood Cell (WBC) Count 7.7 thou/uL (4.8-10.8)
[2017-06-14 05:50] LABS: ALT (SGPT) 8 U/L (8-55); AST (SGOT) 15 U/L (5-34); Alkaline Phosphatase 65 U/L (40-150); Anion Gap 11 mmol/L (10-20); BUN (Urea Nitrogen) 16 mg/dL (9.8-20.1); Bilirubin, Total 0.6 mg/dL (0.2-1.2); Calc. Creatinine Clearance 61 mL/min (70-130); Calcium 8.9 mg/dL (7.8-10.44); Carbon Dioxide 32 mmol/L (23-31); Chloride 104 mmol/L (98-107); Estimated GFR-MDRD 75; Globulin 3.3 g/dL (2.4-3.5); Glucose 117 mg/dL (83-110); Magnesium 1.3 mg/dL (1.6-2.6); Potassium 3.2 mmol/L (3.5-5.1); Protein, Total 6.3 g/dL (6.0-8.3); Sodium 144 mmol/L (136-145)
--- NOTE | 2017-06-14 08:06 | PDOC.PN ---
- Subjective Encounter Start Date: 06/14/17 Encounter Start Time: 08:05 Subjective: mild cough - Objective MAR Reviewed: Yes Vital Signs & Weight: Vital Signs (12 hours) Temp Pulse Resp BP Pulse Ox 06/14/17 07:05 98.3 F 63 20 185/85 H 91 L 06/14/17 06:34 54 L 16 96 06/14/17 04:00 97.3 F L 56 L 16 158/70 H 96 06/14/17 00:51 95 06/13/17 23:20 98.2 F 58 L 16 144/68 H Weight Admit Weight 166 lb 7.184 oz Weight 204 lb Most Recent Monitor Data Heart Rate from ECG 55 NIBP 172/81 NIBP BP-Mean 136 Respiration from ECG 18 SpO2 98 I&O: 06/13/17 06/14/17 06/15/17 06:59 06:59 06:59 Intake Total 1704.4 1200 650 Output Total 2205 550 1600 Balance -500.6 650 -950 Result Diagrams: 06/14/17 05:06 06/14/17 05:06 Radiology Reviewed by me: Yes (cxr- slow improvement RLL pna) Phys Exam - Physical Examination Constitutional: NAD Respiratory: clear to auscultation bilateral Cardiovascular: RRR, no significant murmur Gastrointestinal: soft, no distention, positive bowel sounds Musculoskeletal: edema present Dx/Plan (1) Hypertensive crisis Code(s): I16.9 - HYPERTENSIVE CRISIS, UNSPECIFIED Status: Acute (2) Acute respiratory failure Code(s): J96.00 - ACUTE RESPIRATORY FAILURE, UNSP W HYPOXIA OR HYPERCAPNIA Status: Resolved Qualifiers: Respiratory failure complication: unspecified whether with hypoxia or hypercapnia Qualified Code(s): J96.00 - Acute respiratory failure, unspecified whether with hypoxia or hypercapnia (3) CVA (cerebral vascular accident) Code(s): I63.9 - CEREBRAL INFARCTION, UNSPECIFIED Status: Acute Qualifiers: CVA mechanism: unspecified Qualified Code(s): I63.9 - Cerebral infarction, unspecified (4) Heart failure Code(s): I50.9 - HEART FAILURE, UNSPECIFIED Status: Acute Qualifiers: Heart failure chronicity: unspecified (5) PNA (pneumonia) Code(s): J18.9 - PNEUMONIA, UNSPECIFIED ORGANISM Status: Acute Qualifiers: Pneumonia type: due to unspecified organism Laterality: right Lung location: lower lobe of lung Qualified Code(s): J18.1 - Lobar pneumonia, unspecified organism (6) Encephalopathy Code(s): G93.40 - ENCEPHALOPATHY, UNSPECIFIED Status: Acute - Plan plan discussed w/ family cont slow improvement, oriented to person and place -: cont po antibx -: cont asa, statin, coreg, arb, amlodipine -: cont PT/OT -: placement * .
--- NOTE | 2017-06-14 08:49 | RAD ---
UPRIGHT PORTABLE CHEST 1 VIEW: HISTORY: An 81-year-old female with respiratory insufficiency. COMPARISON: 06/13/17. FINDINGS: Monitor leads overlie the chest. Borderline cardiomegaly. Atherosclerosis of the aorta. Minimal in creased markings in the right infrahilar region. The lungs do appear to be as congested as on the pr ior study. IMPRESSION: Improvement in the previously noted vascular congestion. Persistent somewhat vertically oriented kerry ear parenchymal changes in the right infrahilar region raising concern for some persistent pneumonia and/or atelectasis. Continue short-term followup for clearing or stability. POS: [facility]
[2017-06-14] MEDS: Amlodipine 5 mg/Benazepril 20 mg CAP PO SCH (09:12)
[2017-06-14] MEDS: Aspirin 325 mg Enteric Coated Tablet PO SCH (09:12)
[2017-06-14] MEDS: Furosemide 40 MG TAB PO SCH ×2 (09:12→20:59)
[2017-06-14] MEDS: Carvedilol 25 MG TAB PO SCH ×2 (09:12→20:59)
[2017-06-14] MEDS: Potassium Chloride 20 MEQ TAB PO SCH (09:12)
[2017-06-14] MEDS ORDERED: levETIRAcetam 500 MG TAB PO SCH (12:45)
--- NOTE | 2017-06-14 13:58 | PRG ---
DATE OF SERVICE: 06/14/2017 SUBJECTIVE: Roxie Mcmillan this morning is awake, alert, and responsive. Ate all breakfast. PHYSICAL EXAMINATION: VITAL SIGNS: Blood pressure 185/85, 91% on room air, temperature 98, respiration 20. CHEST: Decreased breath sounds, no wheezing. CARDIAC: Normal S1, S2. No gallops. ABDOMEN: Soft. No mass. IMPRESSION: 1. Status post respiratory failure. 2. Encephalopathy. 3. Possibly seizures. PLAN: I do not see any evidence of obvious pneumonia on the x-ray. Switch over to oral antibiotics. PT and supportive care, eventually placement. We will follow.
[2017-06-14] MEDS: Cefdinir 300 MG CAP PO SCH (20:59)
[2017-06-14] MEDS: Atorvastatin Calcium 20 MG TAB PO SCH (20:59)
[2017-06-14] MEDS: Famotidine 40 MG/4 ML VIAL SLOW IVP SCH (20:59)
[2017-06-14] MEDS: levETIRAcetam 500 MG TAB PO SCH (20:59)
[2017-06-15] MEDS ORDERED: Digoxin 0.5 MG/2 ML AMP SLOW IVP SCH (04:00)
[2017-06-15] MEDS: Carvedilol 25 MG TAB PO SCH ×2 (08:12→20:16)
[2017-06-15] MEDS: levETIRAcetam 500 MG TAB PO SCH ×2 (08:12→20:16)
[2017-06-15] MEDS: Cefdinir 300 MG CAP PO SCH ×2 (08:12→20:16)
[2017-06-15] MEDS: Furosemide 40 MG TAB PO SCH ×2 (08:12→20:19)
[2017-06-15] MEDS: Aspirin 325 mg Enteric Coated Tablet PO SCH (08:12)
[2017-06-15] MEDS: Potassium Chloride 20 MEQ TAB PO SCH (08:12)
[2017-06-15] MEDS: Amlodipine 5 mg/Benazepril 20 mg CAP PO SCH (08:12)
--- NOTE | 2017-06-15 08:48 | PDOC.PN ---
- Subjective Encounter Start Date: 06/15/17 Encounter Start Time: 08:47 Subjective: calm, oriented to person only - Objective MAR Reviewed: Yes Vital Signs & Weight: Vital Signs (12 hours) Temp Pulse Resp BP BP Pulse Ox 06/15/17 08:00 97.5 F L 85 14 121/69 94 L 06/15/17 04:09 104 H 16 152/85 H 95 06/15/17 04:00 51 L 06/15/17 00:27 98.2 F 51 L 18 107/57 L 95 06/14/17 23:19 58 L 12 98 06/14/17 20:50 98.5 F 50 L 16 96 Weight Admit Weight 166 lb 7.184 oz Weight 199 lb 3.2 oz Most Recent Monitor Data Heart Rate from ECG 55 NIBP 172/81 NIBP BP-Mean 136 Respiration from ECG 18 SpO2 98 I&O: 06/14/17 06/15/17 06/16/17 06:59 06:59 06:59 Intake Total 1200 1600 Output Total 550 1800 Balance 650 -200 Result Diagrams: 06/14/17 05:06 06/14/17 05:06 Phys Exam - Physical Examination Neck: no JVD Respiratory: clear to auscultation bilateral Cardiovascular: RRR, no significant murmur Gastrointestinal: soft, positive bowel sounds Musculoskeletal: no edema Dx/Plan (1) Hypertensive crisis Code(s): I16.9 - HYPERTENSIVE CRISIS, UNSPECIFIED Status: Acute (2) Acute respiratory failure Code(s): J96.00 - ACUTE RESPIRATORY FAILURE, UNSP W HYPOXIA OR HYPERCAPNIA Status: Resolved Qualifiers: Respiratory failure complication: unspecified whether with hypoxia or hypercapnia Qualified Code(s): J96.00 - Acute respiratory failure, unspecified whether with hypoxia or hypercapnia (3) CVA (cerebral vascular accident) Code(s): I63.9 - CEREBRAL INFARCTION, UNSPECIFIED Status: Acute Qualifiers: CVA mechanism: unspecified Qualified Code(s): I63.9 - Cerebral infarction, unspecified (4) Heart failure Code(s): I50.9 - HEART FAILURE, UNSPECIFIED Status: Acute Qualifiers: Heart failure chronicity: unspecified (5) PNA (pneumonia) Code(s): J18.9 - PNEUMONIA, UNSPECIFIED ORGANISM Status: Acute Qualifiers: Pneumonia type: due to unspecified organism Laterality: right Lung location: lower lobe of lung Qualified Code(s): J18.1 - Lobar pneumonia, unspecified organism (6) Encephalopathy Code(s): G93.40 - ENCEPHALOPATHY, UNSPECIFIED Status: Acute - Plan placement -: cont antibx -: cont asa, statin, etc * .
--- NOTE | 2017-06-15 11:09 | PRG ---
DATE OF SERVICE: 06/15/2017 Roxie Mcmillan remains slightly encephalopathic, but appears to be in no distress. PHYSICAL EXAMINATION: VITAL SIGNS: Blood pressure is 140/80, pulse 80, respirations 18, she is afebrile. CHEST: Chest reveals no wheezing or crackles. CARDIAC: Normal S1, S2, no gallops. ABDOMEN: Soft. No masses. IMPRESSION: 1. Encephalopathy. 2. Cerebrovascular accident. 3. Hypertension. 4. Respiratory failure. PLAN: Continue aggressive PT and supportive care. Eventually placement.
--- NOTE | 2017-06-15 15:23 | PDOC.EVN ---
Event Note - Event Note Event Note: in atrial fibrillation with controlled ventricular rate. discuss with cardiology , anticoag?
[2017-06-15] MEDS: Atorvastatin Calcium 20 MG TAB PO SCH (20:16)
[2017-06-15] MEDS: Famotidine 40 MG/4 ML VIAL SLOW IVP SCH (20:19)
[2017-06-16] MEDS: Potassium Chloride 20 MEQ TAB PO SCH (08:53)
[2017-06-16] MEDS: Carvedilol 25 MG TAB PO SCH ×2 (08:53→20:31)
[2017-06-16] MEDS: levETIRAcetam 500 MG TAB PO SCH ×2 (08:53→20:31)
[2017-06-16] MEDS: Cefdinir 300 MG CAP PO SCH ×2 (08:53→20:31)
[2017-06-16] MEDS: Amlodipine 5 mg/Benazepril 20 mg CAP PO SCH (08:53)
[2017-06-16] MEDS: Aspirin 325 mg Enteric Coated Tablet PO SCH (08:53)
[2017-06-16] MEDS: Furosemide 40 MG TAB PO SCH ×2 (08:54→20:34)
--- NOTE | 2017-06-16 12:08 | PRG ---
DATE OF SERVICE: 06/16/2017 OBJECTIVE: VITAL SIGNS: Sats are 90% on room air, respirations 20, temperature 97, blood pressure 112/68. She is afebrile. CHEST: No wheezing, no crackles. CARDIAC: Normal S1 and S2. ABDOMEN: Soft. No masses. IMPRESSION: 1. Questionable right-sided pneumonia. 2. Cerebrovascular accident with acute respiratory failure. 3. Encephalopathy. PLAN: From a pulmonary standpoint of view, can be discharged to the rehab at any time. Pulmonary wi ll follow at a distance. Please call as needed.
--- NOTE | 2017-06-16 13:13 | EKG ---
Test Reason : Blood Pressure : / mmHG Vent. Rate : 072 BPM Atrial Rate : 072 BPM P-R Int : 140 ms QRS Dur : 100 ms QT Int : 422 ms P-R-T Axes : 068 013 066 degrees QTc Int : 462 ms Sinus rhythm with marked sinus arrhythmia with occasional Premature ventricular complexes Nonspecific ST abnormality Abnormal ECG Confirmed by JAVAD CARDONA ([id number]), copy editor SOURAV CARDOZA ([id number]) on 06/16/2017 1:12:07 PM Referred By: Confirmed By:JAVAD CARDONA
--- NOTE | 2017-06-16 13:45 | PDOC.PN ---
- Subjective Encounter Start Date: 06/16/17 Encounter Start Time: 13:43 Subjective: seen and examined doing well - Objective Vital Signs & Weight: Vital Signs (12 hours) Temp Pulse Pulse Pulse Resp BP BP 06/16/17 11:41 98.5 F 83 16 06/16/17 08:30 74 81 142/67 H 120/60 06/16/17 08:07 06/16/17 08:03 78 20 06/16/17 08:00 97.7 F 78 20 06/16/17 03:46 98.5 F 80 16 06/16/17 03:04 BP Pulse Ox 06/16/17 11:41 126/60 95 06/16/17 08:30 06/16/17 08:07 95 06/16/17 08:03 95 06/16/17 08:00 112/68 95 06/16/17 03:46 125/73 98 06/16/17 03:04 97 Weight Admit Weight 166 lb 7.184 oz Weight 200 lb 1.6 oz Most Recent Monitor Data Heart Rate from ECG 55 NIBP 172/81 NIBP BP-Mean 136 Respiration from ECG 18 SpO2 98 I&O: 06/15/17 06/16/17 06/17/17 06:59 06:59 06:59 Intake Total 1600 720 Output Total 1800 Balance -200 720 Result Diagrams: 06/14/17 05:06 06/14/17 05:06 Additional Labs: Accuchecks 06/15/17 16:12 POC Glucose 119 H Phys Exam - Physical Examination Constitutional: NAD HEENT: PERRLA, moist MMs, sclera anicteric, TM's clear, oral pharynx no lesions Neck: no nodes, no JVD, supple, full ROM Respiratory: no wheezing, no rales, no rhonchi, clear to auscultation bilateral Cardiovascular: RRR, no significant murmur, no rub Gastrointestinal: soft, non-tender, no distention, positive bowel sounds Musculoskeletal: no edema, pulses present Dx/Plan (1) CVA (cerebral vascular accident) Code(s): I63.9 - CEREBRAL INFARCTION, UNSPECIFIED Status: Acute Qualifiers: CVA mechanism: unspecified Qualified Code(s): I63.9 - Cerebral infarction, unspecified (2) Encephalopathy Code(s): G93.40 - ENCEPHALOPATHY, UNSPECIFIED Status: Acute (3) Heart failure Code(s): I50.9 - HEART FAILURE, UNSPECIFIED Status: Acute Qualifiers: Heart failure chronicity: unspecified (4) Hypertensive crisis Code(s): I16.9 - HYPERTENSIVE CRISIS, UNSPECIFIED Status: Acute (5) PNA (pneumonia) Code(s): J18.9 - PNEUMONIA, UNSPECIFIED ORGANISM Status: Acute Qualifiers: Pneumonia type: due to unspecified organism Laterality: right Lung location: lower lobe of lung Qualified Code(s): J18.1 - Lobar pneumonia, unspecified organism (6) Acute respiratory failure Code(s): J96.00 - ACUTE RESPIRATORY FAILURE, UNSP W HYPOXIA OR HYPERCAPNIA Status: Resolved Qualifiers: Respiratory failure complication: unspecified whether with hypoxia or hypercapnia Qualified Code(s): J96.00 - Acute respiratory failure, unspecified whether with hypoxia or hypercapnia (7) Atrial fibrillation Code(s): I48.91 - UNSPECIFIED ATRIAL FIBRILLATION Status: Active - Plan plan discussed w/ family, continue antibiotics, PT/OT, social security benefits interviewer, respiratory therapy Awaiting Cardiology decision on ? anticoagulation -: D/c to Rehab once anticoagulation is clarified * .
[2017-06-16] MEDS: Atorvastatin Calcium 20 MG TAB PO SCH (20:31)
[2017-06-16] MEDS: Famotidine 40 MG/4 ML VIAL SLOW IVP SCH (20:33)
[2017-06-17] MEDS: Carvedilol 25 MG TAB PO SCH (08:44)
[2017-06-17] MEDS: levETIRAcetam 500 MG TAB PO SCH (08:44)
[2017-06-17] MEDS: Amlodipine 5 mg/Benazepril 20 mg CAP PO SCH (08:44)
[2017-06-17] MEDS: Furosemide 40 MG TAB PO SCH (08:44)
[2017-06-17] MEDS: Potassium Chloride 20 MEQ TAB PO SCH (08:44)
[2017-06-17] MEDS: Cefdinir 300 MG CAP PO SCH (08:44)
[2017-06-17] MEDS: Aspirin 325 mg Enteric Coated Tablet PO SCH (08:44)
[2017-06-17] MEDS ORDERED: Apixaban 5 MG TAB PO SCH ×2 (10:00→21:00)
--- NOTE | 2017-06-17 14:06 | PRG ---
DATE OF SERVICE: 06/17/2017 SUBJECTIVE: Ms. Mcmillan is walking in the law with a walker. She is going to rehab today. OBJECTIVE: VITAL SIGNS: Sats are 90% on room air, respirations 24, temperature is 98 and blood pressure 130/76. CHEST: Reveals no wheezing. CARDIAC: Normal S1 and S2. ABDOMEN: Soft. No masses. IMPRESSION: Status post respiratory failure, encephalopathy, questionable pneumonia. PLAN: She can be discharged to the rehab. Antibiotics prescribed. We will follow at a distance.
[2017-06-17 16:04] VITALS: BP 120/74; TEMP 98.3
--- NOTE | 2017-06-18 13:54 | DIS ---
For details of the history and physical and the consultative notes, please refer to dictations on rec ord. SUMMARY: An 82-year-old female patient who was at family function and developed mental status and garcia d symptoms of questionable for seizure. The patient was brought in and felt to have severe ischemic in nature, as well as questionable seizure. This warranted various consultants to see this patient i ncluding but not limited to the followin. Neurology with Dr. Sabillon. 2. Card[address]. Real. 3. Pulmonary and Critical Care with Dr. Blanco. The patient initially was intubated and managed in ICU, MRI and EEG were all ordered and the patient started empirically on Keppra. The patient initially was noted to be severely hypertensive and felt to have hypertensive emergency and also noted to be bradycardic; however, at some point during this c ourse of hospitalization, the patient developed atrial fibrillation and Cardiology was reinvolved aga in in the management of this patient. Patient continued to maintain sustained clinical improvement t o the point of discharging the patient to [facility] on the day of discharge, the pat ient was noted with the following vital signs, afebrile, temperature 98.3, pulse 78, respiratory rate of 18, O2 sat 96% with blood pressure 120/74. DISCHARGE MEDICATIONS: The patient is discharged on the following medications: Amlodipine/benazepri l 10/40 one p.o. b.i.d., aspirin 325 mg p.o. daily, Coreg 3.125 mg p.o. b.i.d., vitamin D2, furosemid e 40 mg p.o. b.i.d., Keppra 750 mg p.o. b.i.d., lisinopril 20 mg p.o. b.i.d., magnesium 400 mg p.o. b .i.d., metformin 500 mg p.o. b.i.d., potassium 20 mEq p.o. daily, pravastatin 20 mg p.o. at bedtime, sertraline 50 mg p.o. daily. DISCHARGE INSTRUCTIONS: Will be as per recommendation from rehabilitation. Total time spent including [id number] encounter was 31 minutes.
--- NOTE | 2017-06-19 19:40 | EKG ---
Test Reason : Blood Pressure : / mmHG Vent. Rate : 050 BPM Atrial Rate : 050 BPM P-R Int : 154 ms QRS Dur : 104 ms QT Int : 492 ms P-R-T Axes : 055 011 086 degrees QTc Int : 448 ms Sinus bradycardia Nonspecific ST and T wave abnormality Abnormal ECG When compared with ECG of 10-JUN-2017 22:25, (Unconfirmed) Premature ventricular complexes are no longer Present Nonspecific T wave abnormality now evident in Lateral leads Confirmed by JOHN BANG (2) on 06/19/2017 7:40:29 PM Referred By: MARY ELLEN Confirmed By:JOHN BANG
--- NOTE | 2017-06-19 20:16 | EKG ---
Test Reason : Blood Pressure : / mmHG Vent. Rate : 068 BPM Atrial Rate : 075 BPM P-R Int : 000 ms QRS Dur : 092 ms QT Int : 388 ms P-R-T Axes : 000 -06 059 degrees QTc Int : 412 ms Atrial fibrillation Nonspecific T wave abnormality , probably digitalis effect Abnormal ECG When compared with ECG of 11-JUN-2017 02:07, (Unconfirmed) Atrial fibrillation has replaced Sinus rhythm ST no longer depressed in Lateral leads Confirmed by JOHN BANG (2) on 06/19/2017 8:16:31 PM Referred By: MARY ELLEN Confirmed By:JOHN BANG
== END 2017-06-17 17:48 | DRG 208 ==
LOC: ERS 22:22 → CCU 06-11 01:26 → 2SE 06-13 16:41
PROVIDERS: ADMIT Internal Medicine; ATTEND Internal Medicine
PROC: 5A1935Z Respiratory Ventilation, Less than 24 Consecutive Hours (ICD-10-PCS; principal; 2017-06-11)
DX: J96.01 Acute respiratory failure with hypoxia (principal); I63.9 Cerebral infarction, unspecified; J18.9 Pneumonia, unspecified organism; I16.1 Hypertensive emergency; I67.4 Hypertensive encephalopathy; I50.9 Heart failure, unspecified; I11.0 Hypertensive heart disease with heart failure; E03.9 Hypothyroidism, unspecified; F17.210 Nicotine dependence, cigarettes, uncomplicated; I48.0 Paroxysmal atrial fibrillation; E87.6 Hypokalemia
CPT/HCPCS: 0042T; 36415; 36416; 51702; 70450; 70496; 70498; 71045; 80053; 80061; 81003; 81015; 82553; 82805; 83735; 84443; 84484; 85025; 85610; 85730; 87040; 93005; 93010; 93306; 94002; 94003; 94640; 94760; 95816; 95819; 96365; 96367; 96375; 96376; 99292; G8978-GP-CN; G8979-GP-CL; G8987-GO-CN; G8988-GO-CL; G8996-GN-CI; G8997-GN-CI; J0692; J1160; J1953; J1956; J2704; J3010; J3480; J7050; J7620

== ENCOUNTER 2017-06-21 14:26 | Inpatient (IN) | payer MEDICARE, MEDICAID ==
[~2017-06-21 14:26] MED LIST: ISOVUE-370 76%-LOCM 1 ML ONE
--- NOTE | 2017-06-21 15:03 | CT ---
HEAD CT WITHOUT CONTRAST: Date: 06/21/17 COMPARISON: 06/10/17. HISTORY: Left-sided facial droop. TECHNIQUE: Serial axial CT imaging at 5 mm intervals from vertex through skull base without contrast. FINDINGS: There is evidence of prior left occipital infarction, stable. There are patchy areas of hypodensity w ithin the ara, the basal ganglia, the thalami, and throughout the periventricular deep and subcortic al white matter, suggesting small vessel disease. No midline shift/mass effect or intracranial hemorr marquita. Imaged paranasal sinuses/mastoid air cells well aerated. No displaced calvarial fracture. There is atherosclerotic calcification of the cavernous carotid arteries. IMPRESSION: Stable head CT, demonstrating evidence of prior infarctions and small vessel disease. No intracranial hemorrhage. Dr. Steiner made aware of these findings at 1435 hours on 06/21/17. CODE CR. POS: [facility]
[2017-06-21 15:21] LABS: #Basophils 0.1 thou/uL (0.0-0.2); #Eosinphils 0.2 thou/uL (0.0-0.7); #Lymphocytes 1.4 thou/uL (1.20-3.40); #Monocytes 0.4 thou/uL (0.11-0.59); %Basophils 0.9 % (0.0-1.0); %Eosinophils 3.4 % (0.0-10.0); %Lymphocytes 23.6 % (21.0-51.0); %Neutrophils 66.1 % (42.0-75.0); Mean Corpuscular HGB CONC 30.3 g/dL (32.0-36.0); Mean Corpuscular Hemoglobin 28.2 pg (27.0-31.0); Mean Corpuscular Volume 92.9 fl (81.0-99.0); Mean Platelet Volume 7.7 fL (7.4-10.4); Platelet Count 385 thou/uL (130-400); RBC Distribution Width 13.4 % (11.5-14.5); Red Blood Cell (RBC) Count 4.25 mill/uL (4.20-5.40); White Blood Cell (WBC) Count 6.1 thou/uL (4.8-10.8)
[2017-06-21 15:30] LABS: INR-International Normal Ratio 1.1; PTT 28.9 SEC (22.9-36.1); Prothrombin Time 14.2 SEC (12.0-14.7)
[2017-06-21 15:37] LABS: ALT (SGPT) 9 U/L (8-55); AST (SGOT) 14 U/L (5-34); Albumin 3.8 g/dL (3.4-4.8); Alkaline Phosphatase 82 U/L (40-150); Anion Gap 15 mmol/L (10-20); BUN (Urea Nitrogen) 40 mg/dL (9.8-20.1); Bilirubin, Total 0.2 mg/dL (0.2-1.2); CK (CPK) 118 U/L (29-168); Calc. Creatinine Clearance 0 mL/min (70-130); Calcium 9.8 mg/dL (7.8-10.44); Carbon Dioxide 28 mmol/L (23-31); Chloride 99 mmol/L (98-107); Estimated GFR-MDRD 53; Glucose 127 mg/dL (83-110); Protein, Total 7.8 g/dL (6.0-8.3); Sodium 137 mmol/L (136-145)
[2017-06-21 15:41] LABS: CKMB 2.6 ng/mL (0-6.6); Troponin I 0.019 ng/mL (< 0.028)
--- NOTE | 2017-06-21 17:22 | CT ---
CONTRAST ENHANCED CTA CAROTID AND BRAIN: 06/21/17 COMPARISON: Comparison made to previous exam from 06/10/17. Contrast enhanced CTA of the carotid and brain is performed. 2D and 3D reconstructed images performed on an independent 3D workstation. In addition, brain perfusion study was also performed. The aortic arch is unremarkable. No evidence of right or left common carotid artery disease is seen. The internal carotid arteries bilaterally are tortuous without evidence of significant stenosis. Norm al flow is seen in the right and left vertebral arteries. INTRACRANIAL CTA: Bilateral and symmetric flow is seen in the right and left internal carotid arteries, anterior cerebr al artery and middle cerebral arteries. Right and left posterior cerebral artery flow is also seen. No evidence of intracranial vascular occlusion is seen. Brain perfusion scan demonstrates no significant evidence of areas of increased mean transit time. No evidence of brain perfusion abnormality seen to suggest acute stroke or penumbra. Incidentally noted area of heterogeneity seen in the left thyroid lobe, possibly representing a left thyroid mass. IMPRESSION: No evidence of carotid, intracranial or brain perfusion abnormalities seen. Brain perfusion images are less than optimum due to patient motion. This does limit the sensitivity f or detection of pathology. Findings discussed with Dr. Marti at 4:22 p.m. on 06/21/17. POS: [facility]
[2017-06-21 22:35] LABS: Troponin I 0.031 ng/mL (< 0.028)
[2017-06-22 00:40] VITALS: BMI 29.6
[2017-06-22] MEDS ORDERED: Acetaminophen 325 MG TAB PO PRN ×2 (00:54→02:07)
[2017-06-22] MEDS ORDERED: Ondansetron HCl/PF 4 MG/2 ML Vial IVP PRN ×2 (00:54→02:07)
[2017-06-22] MEDS ORDERED: Sodium Chloride 0.9% 1,000 ML IV SCH (00:54)
[2017-06-22] MEDS ORDERED: Ondansetron ODT 4 MG TAB SL PRN (00:54)
[2017-06-22 01:45] LABS: Troponin I 0.038 ng/mL (< 0.028)
--- NOTE | 2017-06-22 02:45 | HP ---
PRIMARY CARE PHYSICIAN: The patient does not have a primary care physician. CHIEF COMPLAINT: Right facial droop and slurred speech. HISTORY OF PRESENT ILLNESS: Ms. Mcmillan is a pleasant 81-year-old female who was recently admitted t o our facility for possible seizure as well as hypertensive urgency. She was seen by Neurology. She had a CT angiogram done as well as echocardiogram. She was found to have some grade 2/3 diastolic d ysfunction, and there was some question of a possible pneumonia. She was treated and then transferre d to the inpatient rehabilitation unit. Apparently while in the rehabilitation unit, she was noted t o have a right facial droop as well as having slurred speech. For this reason, she was sent back to the acute care facility here at [facility]. Currently, the patient can answer some very simple que stions but seems somewhat disoriented. Unfortunately, there is no family by the bedside, I am unable to get any additional history. The review of systems is unobtainable, as the patient appears to be confused. PAST MEDICAL HISTORY: Significant for seizure disorder, hypertension, hypothyroidism, and diastolic heart failure. PAST SURGICAL HISTORY: She has had a left hip surgery. SOCIAL HISTORY: Unknown. Again, unobtainable FAMILY HISTORY: Also unknown and unobtainable. ALLERGIES: No known drug allergies. CURRENT MEDICATIONS: These are taken from the electronic records and include, amlodipine/benazepril 10/40 daily, carvedilol 25 mg twice a day, Omnicef 300 mg twice daily, vitamin D2 of 50,000 units alvaro ry 7 days, furosemide 40 mg twice a day, potassium chloride 20 mEq daily, sertraline 50 mg daily. PHYSICAL EXAMINATION: GENERAL: She appears disoriented. She does not answer my questions. VITAL SIGNS: Blood pressure was 186/90, heart rate 63, respiratory rate of 20, temperature is 93.7. HEENT: Her pupils are equal, round, and reactive. Extraocular muscles are intact. Her sclerae anic teric. Throat no erythema, no exudates. NECK: No adenopathy, no bruits. LUNGS: Clear to auscultation. There was no wheezing, no rales. CARDIOVASCULAR: She has normal S1, S2, slightly irregular rate and rhythm. No murmurs were apprecia robinson. ABDOMEN: Soft, nontender, nondistended. Positive for bowel sounds. No rebound, no guarding. EXTREMITIES: She had some trace edema. NEUROLOGIC: The facial droop is noted and she has some weakness in the right upper extremity; howeve r, she is moving the remainder of her extremities. LABORATORY WORK: The white blood cell count was 6.1, hemoglobin is 12, hematocrit is 39.5, platelet count was 385. Sodium 137, potassium 5.0, chloride is 99, CO2 of 28, BUN of 40, creatinine 1.19, glu cose is 127. ASSESSMENT AND PLAN: This is an 81-year-old female that presented to the emergency room appears to b e acute onset of facial droop. There is concern for an acute cerebrovascular accident. She was not a candidate for TPA and CT angiogram in the ER was negative. She appears to have had a workup relate d to stroke-like symptoms on her previous admission. Therefore, those tests will not need to be repe ated; however, instead, we will consult Neurology to see if there are any additional changes in her m edications that need to be made. She is known to be in atrial fibrillation. She is not on anticoagu lation; however, due to her hypertensive urgency in the past, this is the reason that anticoagulation was held. This will need to be determined by her neurologist as to whether or not she should be on full anticoagulation. Otherwise, we will continue her usual medications for her other conditions inc luding the hypertension and hypothyroidism. Diastolic heart failure. This appears to be compensated.
[2017-06-22 04:38] LABS: #Eosinphils 0.2 thou/uL (0.0-0.7); #Lymphocytes 1.5 thou/uL (1.20-3.40); #Monocytes 0.5 thou/uL (0.11-0.59); #Neutrophils 4.1 thou/uL (1.40-6.50); %Basophils 0.1 % (0.0-1.0); %Eosinophils 2.4 % (0.0-10.0); %Lymphocytes 24.1 % (21.0-51.0); %Monocytes 8.1 % (0.0-10.0); %Neutrophils 65.3 % (42.0-75.0); Hemoglobin 11.4 g/dL (12.0-16.0); Mean Corpuscular HGB CONC 31.1 g/dL (32.0-36.0); Mean Corpuscular Hemoglobin 28.1 pg (27.0-31.0); Mean Corpuscular Volume 90.5 fl (81.0-99.0); Mean Platelet Volume 7.9 fL (7.4-10.4); Platelet Count 385 thou/uL (130-400); RBC Distribution Width 13.4 % (11.5-14.5); Red Blood Cell (RBC) Count 4.04 mill/uL (4.20-5.40); White Blood Cell (WBC) Count 6.3 thou/uL (4.8-10.8)
[2017-06-22 05:17] LABS: Anion Gap 14 mmol/L (10-20); BUN (Urea Nitrogen) 34 mg/dL (9.8-20.1); Calc. Creatinine Clearance 46 mL/min (70-130); Calcium 9.8 mg/dL (7.8-10.44); Carbon Dioxide 30 mmol/L (23-31); Chloride 100 mmol/L (98-107); Estimated GFR-MDRD 56; Glucose 144 mg/dL (83-110); Potassium 4.4 mmol/L (3.5-5.1); Sodium 140 mmol/L (136-145)
[2017-06-22] MEDS ORDERED: levETIRAcetam 500 MG TAB PO SCH (09:00)
--- NOTE | 2017-06-22 09:04 | PRG ---
DATE OF SERVICE: 06/22/2017 CONSULTING PHYSICIAN: Hospitalist Service HISTORY OF PRESENT ILLNESS: Ms. Mcmillan was transferred back from Rehab for the possibility of a new onset of a stroke. She had a CTA last evening which did not show any major vessel occlusion. She w as recently seen by Dr. Sabillon for an episode suggestive of possible seizures. She was started on Kepp ra. Her son reports that she has not had any stroke-like symptoms in the past. Her previous evaluat ion included a transesophageal echo which showed a normal ejection fraction. She is without any part icular complaints this morning. PHYSICAL EXAMINATION: There appears to be a subtle left facial droop. There is mild weakness in the left hand as compared to the right, although her cooperativeness limits a detailed evaluation. LABORATORY STUDIES: Reviewed and appear unremarkable. PLAN: I would go ahead proceed with an MRI of the brain to see if there is evidence of an acute infa rction. She has been started on aspirin. She is already being treated for hyperlipidemia and other risk factors. If everything remains stable, she can transfer back to rehab.
[2017-06-22] MEDS: Amlodipine 5 mg/Benazepril 20 mg CAP PO SCH (10:21)
[2017-06-22] MEDS: Carvedilol 25 MG TAB PO SCH ×2 (10:22→20:38)
[2017-06-22] MEDS: Potassium Chloride 20 MEQ TAB PO SCH (10:22)
[2017-06-22] MEDS: Cefdinir 300 MG CAP PO SCH ×2 (10:22→20:38)
[2017-06-22] MEDS: Famotidine 20 MG TAB PO SCH (10:23)
[2017-06-22] MEDS: Ergocalciferol 1.25 MG(50,000 UNITS) CAP PO SCH (10:23)
--- NOTE | 2017-06-22 15:07 | MRI ---
BRAIN MRI WITHOUT CONTRAST: HISTORY: Left-sided facial droop. COMPARISON: None. TECHNIQUE: A brain MRI is performed without intravenous Gadolinium administration. Multisequential, multiplanar imaging is performed. FINDINGS: The exam was not completed due to motion degradation. [id number], there is a focal area of restr icted diffusion involving the posterior right frontal lobe, with associated signal loss on the ADC ma p. Small cortical infarct is favored. Limited evaluation for hemorrhages. IMPRESSION: Suboptimal evaluation due to motion. [id number], there is an acute infarct involving the right f rontal lobe. POS: [facility]
--- NOTE | 2017-06-22 15:46 | PDOC.PN ---
- Subjective Encounter Start Date: 06/22/17 Encounter Start Time: 09:00 Whit is seen today,completely Disoriented. has Aphasia with left facial droop and loeft sided weakness. - Objective Resuscitation Status: Resuscitation Status FULL:Full Resuscitation MAR Reviewed: Yes Vital Signs & Weight: Vital Signs (12 hours) Temp Pulse Pulse Pulse Pulse Resp BP 06/22/17 15:25 98.5 F 50 L 15 06/22/17 11:16 50 L 51 L 45 L 138/67 06/22/17 11:00 98.2 F 54 L 20 06/22/17 08:25 55 L 170/86 H 06/22/17 08:00 98.2 F 54 L 20 06/22/17 07:54 98.4 F 65 15 BP BP BP BP Pulse Ox 06/22/17 15:25 154/79 H 98 06/22/17 11:16 105/64 111/67 06/22/17 11:00 158/72 H 92 L 06/22/17 08:25 06/22/17 08:00 06/22/17 07:54 188/97 H 98 Weight Weight 162 lb 3.2 oz I&O: 06/21/17 06/22/17 06/23/17 06:59 06:59 06:59 Intake Total 0 Balance 0 Result Diagrams: 06/22/17 01:10 06/22/17 01:10 Radiology Reviewed by me: Yes Dx/Plan (1) CVA (cerebral vascular accident) Code(s): I63.9 - CEREBRAL INFARCTION, UNSPECIFIED Status: Acute Qualifiers: CVA mechanism: unspecified Qualified Code(s): I63.9 - Cerebral infarction, unspecified Comment: Pt has Clear neuro deficits, MRI is ordered by Neurology, Will do Aspirin [place], and Change her keppra to IV. Discussed with Speech, suggested to keep her NPO until deficnitve study with Videopharnygogram. (2) Atrial fibrillation Code(s): I48.91 - UNSPECIFIED ATRIAL FIBRILLATION Status: Active Comment: COntinue with Coreg if Rate uncontrooled, will change to IV BB. (3) Encephalopathy Code(s): G93.40 - ENCEPHALOPATHY, UNSPECIFIED Status: Acute Comment: Camilla from New Stroke will wait for MRI. (4) Heart failure Code(s): I50.9 - HEART FAILURE, UNSPECIFIED Status: Acute Qualifiers: Heart failure chronicity: unspecified Comment: Continue with IV lasix if any worseing SOB. (5) Seizure disorder Code(s): G40.909 - EPILEPSY, UNSP, NOT INTRACTABLE, WITHOUT STATUS EPILEPTICUS Status: Acute Comment: PT on PO keppra, will change to 500mg IV BID. - Plan cont current plan of care, cid catheter, PT/OT, social media analyst, speech therapy, respiratory therapy, DVT proph w/lovenox * . - Discharge Day Encounter end time: 09:35 Review of Systems - Review of Systems Other: Unable to Communicate. - Medications/Allergies Allergies/Adverse Reactions: Allergies Allergy/AdvReac Type Severity Reaction Status Date / Time No Known Drug Allergies Allergy Verified 06/21/17 15:48 Medications: Current Medications Acetaminophen (Tylenol) 650 mg PO Q4H PRN PRN Reason: Headache/Fever or Pain Amlodipine/Benazepril HCl (Lotrel 08/19) 2 cap PO DAILY [facility] Last Admin: 06/22/17 10:21 Dose: 2 cap Aspirin (Aspirin) 300 mg [place] DAILY [facility] Carvedilol (Coreg) 25 mg PO BID [facility] Last Admin: 06/22/17 10:22 Dose: 25 mg Cefdinir (Omnicef) 300 mg PO BID [facility] Last Admin: 06/22/17 10:22 Dose: Not Given Ergocalciferol (Drisdol) 1.25 mg PO Q7DAYS [facility] Last Admin: 06/22/17 10:23 Dose: Not Given Famotidine (Pepcid) 20 mg PO DAILY [facility] Last Admin: 06/22/17 10:23 Dose: Not Given Levetiracetam 500 mg/ Device 100 mls @ 200 mls/hr IVPB BID [facility] Ondansetron HCl (Zofran) 4 mg IVP Q6H PRN PRN Reason: Nausea/Vomiting Potassium Chloride (K-Dur) 20 meq PO QAM-WM [facility] Last Admin: 06/22/17 10:22 Dose: Not Given Pravastatin Sodium (Pravachol) 20 mg PO HS [facility] Sertraline HCl (Zoloft) 50 mg PO DAILY [facility] Last Admin: 06/22/17 10:22 Dose: 50 mg Sodium Chloride (Flush - Normal Saline) 10 ml IVF Q12HR [facility] Last Admin: 06/22/17 10:22 Dose: 10 ml Sodium Chloride (Flush - Normal Saline) 10 ml IVF PRN PRN PRN Reason: Saline Flush
[2017-06-22] MEDS ORDERED: Aspirin 300 MG Suppository PR SCH (17:15)
[2017-06-22] MEDS: Pravastatin Sodium 20 MG TAB PO SCH (20:38)
[2017-06-23 04:56] LABS: Cardiac Risk 3.9 (Less than 4.5)
[2017-06-23] MEDS: Amlodipine 5 mg/Benazepril 20 mg CAP PO SCH (07:35)
[2017-06-23] MEDS: Famotidine 20 MG TAB PO SCH (07:35)
[2017-06-23] MEDS: Cefdinir 300 MG CAP PO SCH ×2 (07:35→19:15)
[2017-06-23] MEDS: Potassium Chloride 20 MEQ TAB PO SCH (07:35)
[2017-06-23] MEDS: Carvedilol 25 MG TAB PO SCH (07:35)
[2017-06-23] MEDS: Aspirin 300 MG Suppository PR SCH (09:13)
--- NOTE | 2017-06-23 15:56 | PDOC.PN ---
- Subjective Encounter Start Date: 06/23/17 Encounter Start Time: 08:00 -: non-verbal Patient is seen today, She remains non verbal, Confirmed Stroke on MRI, called patient Daughter in law, And Explained About the Stroke and Pt/OT. - Objective Resuscitation Status: Resuscitation Status FULL:Full Resuscitation MAR Reviewed: Yes Vital Signs & Weight: Vital Signs (12 hours) Temp Pulse Pulse Pulse Resp BP BP 06/23/17 15:52 98.3 F 45 L 16 06/23/17 12:00 98.0 F 50 L 14 06/23/17 09:28 52 L 46 L 182/93 H 195/99 H 06/23/17 08:00 97.3 F L 54 L 18 06/23/17 04:00 98.2 F 44 L BP BP Pulse Ox 06/23/17 15:52 139/93 H 96 06/23/17 12:00 173/85 H 94 L 06/23/17 09:28 06/23/17 08:00 195/99 H 96 06/23/17 04:00 182/93 H 94 L Weight Admit Weight 162 lb 3.2 oz Weight 162 lb 3.2 oz I&O: 06/22/17 06/23/17 06/24/17 06:59 06:59 06:59 Intake Total 0 100 Balance 0 100 Result Diagrams: 06/22/17 01:10 06/22/17 01:10 Radiology Reviewed by me: Yes EKG Reviewed by me: Yes Phys Exam - Physical Examination HEENT: PERRLA, moist MMs Neck: no nodes, no JVD Respiratory: no wheezing, no rales Cardiovascular: RRR, no significant murmur Gastrointestinal: soft, non-tender Musculoskeletal: no edema, pulses present Neurological: non-focal Lymphatic: no nodes Dx/Plan (1) CVA (cerebral vascular accident) Code(s): I63.9 - CEREBRAL INFARCTION, UNSPECIFIED Status: Acute Qualifiers: CVA mechanism: unspecified Qualified Code(s): I63.9 - Cerebral infarction, unspecified Comment: Pt has Clear neuro deficits, MRI confirmed right Frontal ischemic Stroke., Will do Aspirin [place], and Change her keppra to IV. Discussed with Speech , suggested to keep her NPO until deficnitve study with Videopharnygogram. (2) Atrial fibrillation Code(s): I48.91 - UNSPECIFIED ATRIAL FIBRILLATION Status: Active Comment: COntinue with Coreg if Rate uncontrooled, will change to IV BB. (3) Encephalopathy Code(s): G93.40 - ENCEPHALOPATHY, UNSPECIFIED Status: Acute Comment: Likley from [place] Stroke (4) Heart failure Code(s): I50.9 - HEART FAILURE, UNSPECIFIED Status: Acute Qualifiers: Heart failure chronicity: unspecified Comment: Continue with IV lasix if any worseing SOB. (5) Seizure disorder Code(s): G40.909 - EPILEPSY, UNSP, NOT INTRACTABLE, WITHOUT STATUS EPILEPTICUS Status: Acute Comment: PT on PO keppra, will change to 500mg IV BID. - Plan cont current plan of care, plan discussed w/ family, PT/OT, social and human services assistant, speech therapy, respiratory therapy, incentive spirometry, out of bed/ambulate, DVT proph w/lovenox * . - Discharge Day Encounter end time: 08:35 Review of Systems - Review of Systems Neurological: Incoordination, Change in Speech Other: Unable to get ROS, pt is non verbal with Aphsia. - Medications/Allergies Allergies/Adverse Reactions: Allergies Allergy/AdvReac Type Severity Reaction Status Date / Time No Known Drug Allergies Allergy Verified 06/21/17 15:48 Medications: Current Medications Acetaminophen (Tylenol) 650 mg PO Q4H PRN PRN Reason: Headache/Fever or Pain Amlodipine/Benazepril HCl (Lotrel 5/20) 2 cap PO DAILY [facility] Last Admin: 06/23/17 07:35 Dose: Not Given Aspirin (Aspirin) 300 mg [place] DAILY [facility] Last Admin: 06/23/17 09:13 Dose: 300 mg Cefdinir (Omnicef) 300 mg PO BID [facility] Last Admin: 06/23/17 07:35 Dose: Not Given Ergocalciferol (Drisdol) 1.25 mg PO Q7DAYS [facility] Last Admin: 06/22/17 10:23 Dose: Not Given Famotidine (Pepcid) 20 mg PO DAILY [facility] Last Admin: 06/23/17 07:35 Dose: Not Given Levetiracetam 500 mg/ Device 100 mls @ 200 mls/hr IVPB BID [facility] Last Admin: 06/23/17 09:08 Dose: 100 mls Ondansetron HCl (Zofran) 4 mg IVP Q6H PRN PRN Reason: Nausea/Vomiting Potassium Chloride (K-Dur) 20 meq PO QAM-WM [facility] Last Admin: 06/23/17 07:35 Dose: Not Given Pravastatin Sodium (Pravachol) 20 mg PO HS [facility] Last Admin: 06/22/17 20:38 Dose: Not Given Sertraline HCl (Zoloft) 50 mg PO DAILY [facility] Last Admin: 06/23/17 07:36 Dose: Not Given Sodium Chloride (Flush - Normal Saline) 10 ml IVF Q12HR [facility] Last Admin: 06/23/17 09:13 Dose: 10 ml Sodium Chloride (Flush - Normal Saline) 10 ml IVF PRN PRN PRN Reason: Saline Flush
[2017-06-23] MEDS: Pravastatin Sodium 20 MG TAB PO SCH (20:41)
[2017-06-24] MEDS: Cefdinir 300 MG CAP PO SCH ×2 (09:44→22:09)
[2017-06-24] MEDS: Potassium Chloride 20 MEQ TAB PO SCH (09:44)
[2017-06-24] MEDS: Famotidine 20 MG TAB PO SCH (09:44)
[2017-06-24] MEDS: Aspirin 300 MG Suppository PR SCH ×2 (09:45→15:55)
[2017-06-24] MEDS: Amlodipine 5 mg/Benazepril 20 mg CAP PO SCH (11:13)
[2017-06-24] MEDS: Ergocalciferol 1.25 MG(50,000 UNITS) CAP PO SCH (11:17)
--- NOTE | 2017-06-24 20:39 | PDOC.PN ---
- Subjective Encounter Start Date: 06/24/17 Encounter Start Time: 20:20 Subjective: f/u for acute ischemic CVA R frontal region with expressive aphasia, -: dysarthria and L facial droop. Doing better today. Taking po meds and -: diet. More alert and follows commands. - Objective Resuscitation Status: Resuscitation Status FULL:Full Resuscitation MAR Reviewed: Yes Vital Signs & Weight: Vital Signs (12 hours) Temp Pulse Resp BP BP Pulse Ox 06/24/17 15:40 180/93 H 06/24/17 15:39 97.4 F L 44 L 14 180/92 H 95 06/24/17 11:37 98.9 F 46 L 15 162/91 H 93 L 06/24/17 08:50 98.2 F 52 L 16 97 Weight Admit Weight 162 lb 3.2 oz Weight 162 lb 3.2 oz I&O: 06/23/17 06/24/17 06/25/17 06:59 06:59 06:59 Intake Total 100 60 Balance 100 60 Result Diagrams: 06/22/17 01:10 06/22/17 01:10 Radiology Reviewed by me: Yes (MRI brain - R frontal infarct) EKG Reviewed by me: Yes (Tele - SR) Phys Exam - Physical Examination alert, nods and states a one-word response to questions tracks with eyes to midline, dysconjugate to L lateral gaze HEENT: oral pharynx no lesions Neck: no JVD, supple Respiratory: no wheezing, clear to auscultation bilateral Cardiovascular: RRR Gastrointestinal: soft, non-tender, no distention, positive bowel sounds Musculoskeletal: no edema, pulses present L facial droop, dysarthria Neurological: moves all 4 limbs Skin: normal turgor, cap refill <2 seconds Dx/Plan (1) CVA (cerebral vascular accident) Code(s): I63.9 - CEREBRAL INFARCTION, UNSPECIFIED Status: Acute Qualifiers: CVA mechanism: unspecified Qualified Code(s): I63.9 - Cerebral infarction, unspecified Comment: Ischemic R frontal involvement with expressive dysphasia and dysarthria , continue ASA 325mg po daily, stroke protocol, Rehab on d/c (2) Seizure disorder Code(s): G40.909 - EPILEPSY, UNSP, NOT INTRACTABLE, WITHOUT STATUS EPILEPTICUS Status: Acute Comment: Change Keppra 500mg po BID (3) Encephalopathy Code(s): G93.40 - ENCEPHALOPATHY, UNSPECIFIED Status: Acute Comment: Secondary to #1, improved, supportive mgmt, family for 1:1 prn (4) HTN (hypertension) Code(s): I10 - ESSENTIAL (PRIMARY) HYPERTENSION Status: Chronic Qualifiers: Hypertension type: essential hypertension Qualified Code(s): I10 - Essential (primary) hypertension Comment: Continue Coreg with Amlodipine/Benazepril, follow serially (5) CKD (chronic kidney disease) stage 2, GFR 60-89 ml/min Code(s): N18.2 - CHRONIC KIDNEY DISEASE, STAGE 2 (MILD) Status: Chronic Comment: Follow renal fuction, avoid nephrotoxic meds and limit contrast exposure, hold Metformin - Plan plan discussed w/ family, PT/OT, social media content specialist, speech therapy, out of bed/ ambulate, DVT proph w/SCDs Stable overall -: Continue stroke protocol -: CM for Rehab options -: Continue Pravachol -: ASA 325mg daily * Am lab: BMP * Likely to Rehab in 24h
[2017-06-24] MEDS: levETIRAcetam 500 MG TAB PO SCH (22:09)
[2017-06-24] MEDS: Pravastatin Sodium 20 MG TAB PO SCH (22:09)
[2017-06-25] MEDS ORDERED: Aspirin 325 MG TAB PO SCH (09:00)
[2017-06-25] MEDS: Famotidine 20 MG TAB PO SCH (09:07)
[2017-06-25] MEDS: Cefdinir 300 MG CAP PO SCH (09:07)
[2017-06-25] MEDS: Amlodipine 5 mg/Benazepril 20 mg CAP PO SCH (09:07)
[2017-06-25] MEDS: Potassium Chloride 20 MEQ TAB PO SCH (09:07)
[2017-06-25] MEDS: levETIRAcetam 500 MG TAB PO SCH (09:07)
[2017-06-25 16:04] VITALS: BP 134/66; TEMP 97.5
--- NOTE | 2017-06-25 17:03 | PDOC.EVN ---
Event Note - Event Note Event Note: Pt with hx of intermittent Atrial fibrillation now in SR but not a candidate for anticoagulation due to high fall risk. Will continue on ASA 325mg daily.
--- NOTE | 2017-06-25 19:17 | DIS ---
DATE OF ADMISSION: 06/21/2017 DATE OF DISCHARGE: 06/25/2017 DISCHARGE DIAGNOSES: 1. Acute right frontal ischemic cerebrovascular accident with expressive dysphasia and dysarthria. 2. Seizure disorder, stable. 3. Acute encephalopathy secondarily to #1, improved. 4. Hypertension, stable. 5. Chronic kidney disease stage 2. CONSULTATIONS: Dr. Rivera with Neurology Service. PERTINENT LABORATORY AND X-RAY FINDINGS: Creatinine ranged between 1.13-1.34. Estimated GFR ranged between 46-56, total cholesterol 143, triglycerides 63, HDL 37, LDL 93. CBC within normal limits. C T of the brain without contrast dated 06/21/2017 showed prior infarcts noted with small vessel ischem ic changes. No acute intracranial process identified. CT angiogram of the head and neck dated 06/21 showed no evidence of carotid intracranial or brain perfusion abnormalities. Motion artifact l imited exam. MRI of the brain dated 06/22/2017 showed suboptimal exam due to motion artifact. Acute infarct involving the right frontal lobe noted. A 2D transthoracic echocardiogram dated 06/12/2017 showed ejection fraction of 50-55%. Grade 2/3 diastolic dysfunction. Moderate left atrial enlargeme nt. HOSPITAL COURSE: Patient was admitted to the stroke unit after presenting with left facial asymmetry and dysarthria. The patient underwent extensive neuro imaging after recent admission in early 06/19 17 after suspected TIA. The patient returns with acute ischemic cerebrovascular accident of the righ t frontal region with associated left facial asymmetry and droop as well as expressive aphasia/dyspha nora. The patient underwent general stroke protocol including aspirin 325 mg daily. The patient was evaluated by speech therapy and deemed appropriate for oral intake. The patient continued to meet ap propriate milestones with general stroke protocol and deemed an appropriate candidate for ongoing kelly abilitation in an inpatient setting. The patient was resumed on Keppra 500 mg b.i.d. and remained cl inically stable through the remainder of the hospital course. I have examined and reviewed discharge instructions with the patient at the time of discharge and she verbalizes understanding and agreemen t to proceed with acute inpatient rehabilitation. The patient is overall clinically stabilized and r scooter for discharge to [facility] on 06/25/2017. DISCHARGE MEDICATIONS: 1. Amlodipine/benazepril 10/40 mg 1 tab p.o. daily. 2. Aspirin 325 mg one tab p.o. daily. 3. Omnicef 300 mg p.o. b.i.d. x5 days. 4. Vitamin D2 of 50,000 units p.o. q.7 days. 5. Lasix 40 mg p.o. daily, start on 06/29/2017. 6. Keppra 500 mg p.o. b.i.d. 7. Metformin 500 mg p.o. b.i.d. 8. Potassium chloride 20 mEq p.o. daily. 9. Pravachol 20 mg p.o. at bedtime. 10. Sertraline 50 mg p.o. daily. FOLLOWUP: The patient may follow up with Dr. Jesus Mccloud after discharge from [facility]. CONDITION ON DISCHARGE: Stable. ACTIVITY: Ad kate. Rolling walker with standby/contact guard assistance. DIET: Heart healthy. CODE STATUS: FULL. DISPOSITION: Discharged to [facility] on 06/25/2017. Total time preparing and coordinating discharge 33 minutes.
--- NOTE | 2017-07-26 15:05 | EKG ---
Test Reason : Blood Pressure : / mmHG Vent. Rate : 059 BPM Atrial Rate : 059 BPM P-R Int : 148 ms QRS Dur : 094 ms QT Int : 420 ms P-R-T Axes : 046 -18 026 degrees QTc Int : 415 ms Sinus bradycardia Minimal voltage criteria for LVH, may be normal variant Borderline ECG Confirmed by MARIANO PERKINS ([id number]), food expeditor SOURAV CARDOZA ([id number]) on 07/26/2017 3:04:08 PM Referred By: Confirmed By:MARIANO PERKINS
== END 2017-06-25 19:45 | DRG 64 ==
LOC: ERS 14:26 → 2SE 20:22
PROVIDERS: ADMIT Internal Medicine; ATTEND Internal Medicine
PROC: 06HY33Z Insertion of Infusion Device into Lower Vein, Percutaneous Approach (ICD-10-PCS; principal; 2017-06-21)
DX: I63.9 Cerebral infarction, unspecified (principal); G93.40 Encephalopathy, unspecified; I48.2 Chronic atrial fibrillation; R13.12 Dysphagia, oropharyngeal phase; I50.32 Chronic diastolic (congestive) heart failure; G40.909 Epilepsy, unspecified, not intractable, without status epilepticus; I13.0 Hypertensive heart and chronic kidney disease with heart failure and stage 1 through stage 4 chronic kidney disease, or unspecified chronic kidney disease; E03.9 Hypothyroidism, unspecified; E78.5 Hyperlipidemia, unspecified; F17.220 Nicotine dependence, chewing tobacco, uncomplicated; N18.2 Chronic kidney disease, stage 2 (mild); R29.810 Facial weakness; R47.81 Slurred speech; Z86.73 Personal history of transient ischemic attack (TIA), and cerebral infarction without residual deficits
CPT/HCPCS: 0042T; 36415; 36416; 36556; 70450; 70496; 70498; 70551; 80048; 80053; 80061; 82553; 84484; 85025; 85610; 85730; 93005; A4216; G8978-GP-CM; G8979-GP-CK; G8987-GO-CM; G8988-GO-CK; G8996-GN-CK; G8996-GN-CL; G8996-GN-CM; G8997-GN-CJ; G8997-GN-CK; J1953

== ENCOUNTER 2017-08-22 20:13 | Inpatient (IN) | payer MEDICARE, MEDICAID ==
[2017-08-22] MEDS ORDERED: Propofol 1,000 MG/100 ML VIAL IV ONE (20:19)
[2017-08-22 20:30] LABS: #Eosinphils 0.2 thou/uL (0.0-0.7); #Lymphocytes 3.1 thou/uL (1.20-3.40); #Monocytes 0.6 thou/uL (0.11-0.59); #Neutrophils 5.9 thou/uL (1.40-6.50); %Basophils 0.2 % (0.0-1.0); %Eosinophils 1.9 % (0.0-10.0); %Lymphocytes 31.8 % (21.0-51.0); %Monocytes 6.5 % (0.0-10.0); %Neutrophils 59.6 % (42.0-75.0); Hemoglobin 12.2 g/dL (12.0-16.0); Mean Corpuscular HGB CONC 32.7 g/dL (32.0-36.0); Mean Corpuscular Volume 91.7 fl (81.0-99.0); Mean Platelet Volume 7.7 fL (7.4-10.4); Platelet Count 226 thou/uL (130-400); RBC Distribution Width 13.2 % (11.5-14.5); Red Blood Cell (RBC) Count 4.08 mill/uL (4.20-5.40); White Blood Cell (WBC) Count 9.9 thou/uL (4.8-10.8)
[2017-08-22 20:36] LABS: INR-International Normal Ratio 1.2; PTT 25.9 SEC (22.9-36.1); Prothrombin Time 15.7 SEC (12.0-14.7)
[2017-08-22 20:44] LABS: ALT (SGPT) 22 U/L (8-55); AST (SGOT) 22 U/L (5-34); Albumin 3.5 g/dL (3.4-4.8); Alkaline Phosphatase 105 U/L (40-150); Anion Gap 18 mmol/L (10-20); BUN (Urea Nitrogen) 35 mg/dL (9.8-20.1); Bilirubin, Total 0.5 mg/dL (0.2-1.2); Calc. Creatinine Clearance 0 mL/min (70-130); Calcium 9.2 mg/dL (7.8-10.44); Carbon Dioxide 20 mmol/L (23-31); Chloride 108 mmol/L (98-107); Estimated GFR-MDRD 42; Globulin 4.1 g/dL (2.4-3.5); Glucose 245 mg/dL (83-110); Potassium 3.8 mmol/L (3.5-5.1); Protein, Total 7.6 g/dL (6.0-8.3); Sodium 142 mmol/L (136-145)
[2017-08-22 20:45] LABS: CKMB 2.1 ng/mL (0-6.6); Troponin I 0.084 ng/mL (< 0.028)
--- NOTE | 2017-08-22 21:01 | CT ---
CT BRAIN: 08/22/2017 PROVIDED CLINICAL HISTORY: Seizure like activity. COMPARISON: 06/21/2017 FINDINGS: The ventricular system appears normal in size and morphology. There is no evidence for intracranial hemorrhage or mass effect. Microvascular ischemic changes appear similar to the prior examination. Encephalomalacia in the distribution of the left posterior cerebral artery is redemonstrated. The ex tracranial soft tissues and osseous structures demonstrate an unremarkable CT appearance, with the ex ception of fluid density seen in the region of the nasopharynx. IMPRESSION: No evidence for intracranial hemorrhage or mass effect. POS: MONICA
--- NOTE | 2017-08-22 21:08 | CT ---
CT ANGIOGRAM BRAIN WITH IV CONTRAST AND 3D MIP RECONSTRUCTIONS: CT ANGIOGRAM GREAT VESSELS NECK WITH IV CONTRAST AND 3D MIP RECONSTRUCTIONS: PROVIDED CLINICAL HISTORY: Stroke. FINDINGS: There is a bovine configuration of the great vessels of the arch. There is no evidence for a signifi cant stenosis, branch occlusion, or aneurysm involving the common carotid, internal carotid, or verte bral arteries. The visualized subclavian arteries appear patent. Prominent fluid density is seen wi thin the nasopharynx, oropharynx, and hypopharynx. Endotracheal and enteric catheters are partially visualized. There is a focal area of incompletely visualized and incompletely characterized parenchy mal opacity involving the right upper lobe. This appears new with respect to the exam of 06/21/2017. There is no evidence for a high-grade focal vessel stenosis, branch occlusion, or aneurysm involving the intracranial circulation. Vascular calcifications are seen involving the cavernous portions of e ach internal carotid artery. There is an incompletely characterized left thyroid lobe hypodensity, measuring about 1.6 cm. IMPRESSION: 1. Negative CT angiogram neck and CT angiogram brain. Findings relayed to Dr De Jesus via telephone [phone] 08/22/17. 2. Incompletely visualized and incompletely characterized parenchymal opacity involving the right up per lobe. Chest radiograph correlation is recommended. 3. Left-sided thyroid nodule, which appears stable with respect to the prior study. Nonemergent son ographic correlation is recommended. POS: MONICA
[2017-08-22] MEDS ORDERED: Aspirin 300 MG Suppository ONE (21:10)
[2017-08-22 21:12] LABS: Bilirubin Small (Negative); Blood, Urine Negative (Negative); Clarity CLOUDY (Clear); Glucose, Urine (Dipstick) Negative (Negative); Leukocyte Trace (Negative); Nitrite Negative (Negative); Protein, Urine (Dipstick) Negative (Neg-Trace); Specific Gravity, Urine 1.035 (1.002-1.036); pH, Urine 5.5 (5.0-9.0)
[2017-08-22 21:13] LABS: Bacteria/HPF None Seen HPF (None Seen); RBC/HPF 0-3 HPF (0-3); WBC/HPF 0-3 HPF (0-3)
[2017-08-22] MEDS ORDERED: levETIRAcetam In NaCl (Iso-Os) 1,000 MG in Premix Bag 1 BAG IVPB SCH (21:15)
--- NOTE | 2017-08-22 21:16 | RAD ---
PORTABLE CHEST: 08/22/2017 PROVIDED CLINICAL HISTORY: Seizure-like activity. COMPARISON: 06/14/2017 FINDINGS: The cardiac and mediastinal silhouette are unchanged in appearance. Endotracheal tube is noted, the tip of which is just above the michelle. An enteric catheter is noted, the tip of which is below the d iaphragm. There is a subtle parenchymal opacity involving the right upper lung zone, seen to a libby r advantage on the concurrently performed CT angiogram of the neck. The lungs appear otherwise clear . There is no pleural fluid or pneumothorax apparent. IMPRESSION: Right upper lung zone parenchymal opacity, seen to better advantage on the previously performed CT ex amination. This may reflect pneumonia. Other etiologies are not excluded. Followup is recommended. POS: MONICA
[2017-08-22 21:17] LABS: Yeast-AUWi Flag 56.5 (0-25.0)
[2017-08-22 21:22] LABS: Amphetamine Not Detected (NotDetected); Barbiturates Screen Not Detected (NotDetected); Benzodiazepine Screen Not Detected (NotDetected); Cocaine Metabolite Screen Not Detected (NotDetected); Medtox Control Line Valid? VALID (VALID); Medtox Reader # READER 1; Methadone Not Detected (NotDetected); Methamphetamine Not Detected (NotDetected); Opiate Screen Not Detected (NotDetected); Oxycodone Screen Not Detected (NotDetected); Phencyclidine (PCP) Not Detected (NotDetected); THC/Cannabinoid Screen Not Detected (NotDetected); Tricyclic Screen Not Detected (NotDetected)
[2017-08-22 21:26] LABS: Hyaline Casts/LPF 4-6 HYALINE CAST LPF (0-3 Hyaline)
[2017-08-22 21:39] LABS: Actual Bicarbonate (HCO3a) 22.6 mEq/L (22-26); Base Excess (BEa) -2.4 mEq/L (0 (+/-) 2.5); Hematocrit-ABG 34.5 % (36.0-47.0); Hemoglobin (Hb) 10.8 g/dL (12.0-16.0); O2 Tension (PaO2) 105.6 mmHg (80.0-100.0); pH, Arterial 7.37 (7.35-7.45)
[2017-08-22 21:40] LABS: Analyzer IN Cardio ER; Calcium, Ionized 1.2 mmol/L (1.12-1.30); Puncture Site RRA
[2017-08-22] MEDS ORDERED: Propofol 1,000 MG/100 ML VIAL IV PRN (23:35)
[2017-08-22] MEDS ORDERED: Propofol BOLUS 1,000 MG/100 ML VIAL IV PRN (23:35)
[2017-08-22] MEDS ORDERED: Fentanyl BOLUS 250 ML IVPB PRN (23:39)
[2017-08-22] MEDS ORDERED: Morphine 4 MG/ML VIAL SLOW IVP PRN (23:39)
[2017-08-22] MEDS ORDERED: Lorazepam 2 MG/ML VIAL SLOW IVP PRN (23:39)
[2017-08-22] MEDS ORDERED: fentaNYL Citrate/PF 2,000 MCG in Sodium Chloride 0.9% 60 ML IV SCH (23:39)
[2017-08-22 23:55] LABS: Troponin I 0.182 ng/mL (< 0.028)
[2017-08-23] MEDS ORDERED: Lorazepam 2 MG/ML VIAL SLOW IVP PRN ×2 (01:59→02:20)
[2017-08-23] MEDS ORDERED: Ventilator Sedation Protocol 1 EACH FS SCH (02:00)
[2017-08-23] MEDS ORDERED: Sodium Chloride 0.9% 1,000 ML IV SCH (02:00)
[2017-08-23] MEDS ORDERED: Senokot 8.6 MG TAB PO PRN (02:03)
[2017-08-23] MEDS ORDERED: Acetaminophen 650 MG Suppository PR PRN (02:03)
[2017-08-23] MEDS ORDERED: Calcium Carbonate 500 MG ChewTAB PO PRN (02:03)
[2017-08-23] MEDS ORDERED: Mag-Al 1200 mg/1200 mg/30 ML UDCUP PO PRN (02:03)
[2017-08-23] MEDS ORDERED: Acetaminophen 325 MG TAB PO PRN (02:03)
[2017-08-23] MEDS ORDERED: Propofol BOLUS 1,000 MG/100 ML VIAL IV PRN (02:20)
[2017-08-23] MEDS ORDERED: Morphine 4 MG/ML VIAL SLOW IVP PRN (02:20)
[2017-08-23] MEDS ORDERED: Fentanyl BOLUS 250 ML IVPB PRN (02:20)
[2017-08-23] MEDS ORDERED: fentaNYL Citrate/PF 2,000 MCG in Sodium Chloride 0.9% 60 ML IV SCH (02:20)
[2017-08-23] MEDS: Propofol 1,000 MG/100 ML VIAL IV PRN ×2 (02:21→06:41)
--- NOTE | 2017-08-23 02:33 | HP ---
DATE OF ADMISSION: 08/22/2017 CHIEF COMPLAINT: Seizure. PRIMARY CARE PHYSICIAN: Dr. Mccloud. HISTORY OF PRESENT ILLNESS: Patient is an 82-year-old -[place] female with seizure disorder with CVA in May of this year was brought in to the emergency room after an episode of seizure at [facility]. EMS was called. Patient was subsequently intubated for airway protection. At this time, there is no family at the bedside. Per ER report, the seizure was generalized tonic-clonic. Her eye was d eviated to the right. PAST MEDICAL HISTORY: 1. Seizure disorder, currently on Keppra. 2. Hypertension. 3. Hypothyroidism. 4. Chronic diastolic heart failure. 5. Acute cerebrovascular accident in the right frontal region in 05/2017. She was started on aspiri n. 6. Chronic kidney disease, stage 2. 7. Diabetes mellitus, type 2. PAST SURGICAL HISTORY: Left hip surgery. ALLERGIES: No known drug allergies. CURRENT HOME MEDICATIONS: To be confirmed with the family. ALLERGIES: No known drug allergies. SOCIAL HISTORY: No smoking, alcohol, or drug use. Patient was discharged to inpatient [facility] in May. It is unclear whether patient lives at home or she came from facility. Patient was a FU LL CODE last admission. Durable power of home care coordinator to be verified. Apparently, her son had called divina p[facility]en. FAMILY HISTORY: Cannot be obtained from the patient due to current cognitive status. REVIEW OF SYSTEMS: Cannot obtain from the patient due to the same reason. PHYSICAL EXAMINATION: VITAL SIGNS: On ER arrival, temperature 99.7 rectally with respirations of 14, pulse rate of 115 wit h a blood pressure of 156/105, O2 saturation 100% on ventilator. Her last temperature was 97.7. GENERAL: Patient is currently intubated and is on propofol drip. HEENT: Head atraumatic, normocephalic. Pupils responding, but sluggish. Endotracheal tube noted. NECK: Supple, no neck stiffness. LUNGS: Showed scattered rhonchi especially on the right side. No wheezing or rales. HEART: S1, S2 present. Regular rate and rhythm. No heaves or pulsation. ABDOMEN: Soft. Bowel sounds present. EXTREMITIES: No edema or calf tenderness. NEUROLOGIC/PSYCHIATRIC: Could not be done due to current cognitive status. Patient is withdrawing f rom pain. SKIN: Warm and dry. LYMPH NODES: No palpable lymph nodes in the neck. PERIPHERAL VASCULAR: Radial pulses palpable bilaterally. LABORATORY FINDINGS: 1. WBC 9.9 without any left shift, hemoglobin 12.2. 2. ABG showed pH 7.37 with pCO2 of 40, pO2 of 105.6. 3. Chemistries showed sodium 142, potassium 3.8, chloride 108, bicarbonate 20, BUN 35, creatinine 1. 46, glucose of 245, troponin 0.084 with CK-MB 2.1. 4. CT scan of the brain was negative for acute cerebrovascular accident. 5. Chest x-ray by my review was negative for infiltrate. There was increased bronchopulmonary bill ngs on the right upper lung. 6. CTA of the head and neck were negative. IMPRESSION: 1. Status epilepticus. 2. Acute respiratory failure secondary to #1. 3. Seizure disorder. 4. Hypertension. 5. Chronic diastolic heart failure. 6. History of cerebrovascular accident in 05/2017. 7. Hypothyroidism. 8. Acute kidney injury on chronic kidney disease stage 2. 9. Elevated troponins probably due to demand ischemia. Please note that patient had elevated tropon ins in 05/3017. PLAN: Patient will be monitored in the intensive care unit. We will continue mechanical ventilation . Critical Care will be consulted. She received a loading dose of Keppra. We will increase Keppra to 750 mg twice a day. We will consult neurology, Dr. Rivera. We will start her on IV fluids due to a cute kidney injury. We will start her on insulin sliding scale. We will recheck labs in a.m. We wi ll continue aspirin due to recent acute cerebrovascular accident. Plan of care will be discussed with the family when they arrive. At this time, there is no family at the bedside.
[2017-08-23 05:36] LABS: #Eosinphils 0.1 thou/uL (0.0-0.7); #Lymphocytes 1.8 thou/uL (1.20-3.40); #Monocytes 0.6 thou/uL (0.11-0.59); #Neutrophils 6.5 thou/uL (1.40-6.50); %Basophils 0.1 % (0.0-1.0); %Eosinophils 1.1 % (0.0-10.0); %Monocytes 6.3 % (0.0-10.0); %Neutrophils 72.4 % (42.0-75.0); Hemoglobin 11.3 g/dL (12.0-16.0); Mean Corpuscular HGB CONC 31.9 g/dL (32.0-36.0); Mean Corpuscular Hemoglobin 29.2 pg (27.0-31.0); Mean Corpuscular Volume 91.4 fl (81.0-99.0); Mean Platelet Volume 7.9 fL (7.4-10.4); Platelet Count 182 thou/uL (130-400); RBC Distribution Width 13.3 % (11.5-14.5); Red Blood Cell (RBC) Count 3.88 mill/uL (4.20-5.40); White Blood Cell (WBC) Count 8.9 thou/uL (4.8-10.8)
[2017-08-23 06:07] LABS: Albumin 3.3 g/dL (3.4-4.8); Anion Gap 13 mmol/L (10-20); BUN (Urea Nitrogen) 32 mg/dL (9.8-20.1); Bilirubin, Total 0.3 mg/dL (0.2-1.2); Calc. Creatinine Clearance 42 mL/min (70-130); Calcium 9.1 mg/dL (7.8-10.44); Carbon Dioxide 24 mmol/L (23-31); Chloride 110 mmol/L (98-107); Estimated GFR-MDRD 56; Glucose 124 mg/dL (83-110); Potassium 4.3 mmol/L (3.5-5.1); Protein, Total 6.8 g/dL (6.0-8.3); Sodium 143 mmol/L (136-145)
[2017-08-23 06:08] LABS: ALT (SGPT) 18 U/L (8-55); AST (SGOT) 21 U/L (5-34); Alkaline Phosphatase 95 U/L (40-150); Globulin 3.5 g/dL (2.4-3.5); Magnesium 1.6 mg/dL (1.6-2.6); Phosphorus 3.3 mg/dL (2.3-4.7)
[2017-08-23 06:09] LABS: Troponin I 0.266 ng/mL (< 0.028)
[2017-08-23 07:01] VITALS: BMI 24.3
--- NOTE | 2017-08-23 07:55 | CON ---
DATE OF CONSULTATION: 08/23/2017 This is 45 minutes critical care time. CONSULTING PHYSICIAN: Dr. Barajas REASON FOR CONSULTATION: Respiratory failure. HISTORY OF PRESENT ILLNESS: The patient is an 82-year-old white female who was brought in last night after having a seizure episode at home. She was apparently intubated by paramedics on the scene for the purpose of protecting her airway. This patient had a similar admission in 05/2017. At that randy e, she was taken care of by my partner, Dr. Blanco. At the current time. I am having difficulty getting the patient to awaken, but she is on a propofol drip. The history I have is obtained from reviewing the patient's chart. PAST MEDICAL HISTORY: 1. Seizure disorder. 2. Hypertension. 3. Hypothyroidism. 4. Chronic diastolic congestive heart failure. 5. Acute cerebrovascular accident in the right frontal lobe region in 05/2017. 6. Chronic kidney disease. 7. Diabetes mellitus type 2. PAST SURGICAL HISTORY: She had left hip surgery. ALLERGIES: None. MEDICATIONS PRIOR TO ADMISSION: These were not confirmed, but in the chart is listed as metformin, K eppra, sertraline, pravastatin, potassium chloride, furosemide, vitamin D2, aspirin and amlodipine/be nazepril. SOCIAL HISTORY: No history of smoking, alcohol or illicit drug use. FAMILY MEDICAL HISTORY: Unremarkable. REVIEW OF SYSTEMS: Cannot be obtained as the patient is currently intubated on mechanical ventilatio n. PHYSICAL EXAMINATION: VITAL SIGNS: Temperature 97.8, pulse 85, blood pressure 133/72, O2 sat 100%. She is currently on a propofol drip. Total intake since admission 536, output 840. NEUROLOGIC: She will move around. She withdraws to pain. She opens her eyes. HEENT: Pupils react. Sclerae icteric. Oropharynx clear. NECK: No adenopathy, no JVD, no bruits. LUNGS: Clear without wheezing or rhonchi. CARDIAC: S1, S2 regular rhythm, without murmur. ABDOMEN: Soft, nontender, nondistended. EXTREMITIES: No clubbing, cyanosis, or edema. LABORATORY AND X-RAY FINDINGS: White blood cell count 8.9, hematocrit 35.4, platelet count 182, pH 7 .37, pCO2 40, PO2 105. Sodium 143, potassium 4.3, chloride 110, CO2 24, BUN 32, creatinine 1.1, gluc ose 124. Troponin 0.2. Chest x-ray shows no mass, effusion. There is a question of a small right upper lobe infiltrate. ASSESSMENT: 1. Seizure episode. 2. Acute respiratory failure - patient intubated to protect airway. 3. Previous stroke. 4. Diabetes mellitus type 2. 5. Hypertension. PLAN: I think we can go ahead and stop the propofol and get her extubated this morning. She needs f urther workup from the Neurology Service.
[2017-08-23] MEDS: Sodium Chloride 0.9% 1,000 ML IV SCH ×2 (08:46→09:35)
[2017-08-23] MEDS ORDERED: Famotidine 20 MG TAB PO SCH (09:00)
[2017-08-23] MEDS ORDERED: Aspirin 300 MG Suppository PR SCH (09:00)
[2017-08-23] MEDS ORDERED: levETIRAcetam In NaCl (Iso-Os) 750 MG in Premix Bag 1 BAG IVPB SCH (09:00)
[2017-08-23] MEDS ORDERED: Famotidine/PF 20 mg/2ml Vial SLOW IVP SCH (09:00)
[2017-08-23] MEDS ORDERED: Dextrose 5% in Water 1,000 ML IV PRN (09:03)
[2017-08-23] MEDS ORDERED: HumaLOG 300 UNITS/3 ML VIAL SC PRN (09:03)
[2017-08-23] MEDS ORDERED: Dextrose 50% Abboject 50 ML SYRINGE SLOW IVP PRN (09:03)
--- NOTE | 2017-08-23 09:05 | PDOC.PN ---
- Subjective Encounter Start Date: 08/23/17 Encounter Start Time: 09:04 Ms. Mcmillan was seen today in follow-up of breakthrough seizure. She has been extubated and is very drowsy but will awaken with voice. she appears in no distress. - Objective Resuscitation Status: Resuscitation Status FULL:Full Resuscitation MAR Reviewed: Yes Vital Signs & Weight: Vital Signs (12 hours) Temp Pulse Resp BP Pulse Ox 08/23/17 08:00 97.8 F 69 20 08/23/17 07:00 97.8 F 08/23/17 06:26 100 08/23/17 06:23 59 L 133/72 08/23/17 06:00 14 08/23/17 05:00 97.8 F 08/23/17 04:00 14 08/23/17 02:00 14 08/23/17 00:00 98.2 F 84 22 H 100 Weight Weight 150 lb 5.684 oz Most Recent Monitor Data Heart Rate from ECG 65 NIBP 148/81 NIBP BP-Mean 91 Respiration from ECG 18 SpO2 100 I&O: 08/22/17 08/23/17 08/24/17 06:59 06:59 06:59 Intake Total 536 Output Total 840 255 Balance -304 -255 Result Diagrams: 08/23/17 05:20 08/23/17 05:20 Phys Exam - Physical Examination HEENT: PERRLA, sclera anicteric Respiratory: no wheezing, no rales, no rhonchi, clear to auscultation bilateral Cardiovascular: RRR, no significant murmur, no rub Gastrointestinal: soft, non-tender, positive bowel sounds Musculoskeletal: no edema Neurological: non-focal, moves all 4 limbs Dx/Plan (1) Chronic diastolic heart failure Code(s): I50.32 - CHRONIC DIASTOLIC (CONGESTIVE) HEART FAILURE Status: Acute (2) CVA (cerebral vascular accident) Code(s): I63.9 - CEREBRAL INFARCTION, UNSPECIFIED Status: Acute Qualifiers: CVA mechanism: unspecified Qualified Code(s): I63.9 - Cerebral infarction, unspecified Comment: Ischemic R frontal involvement with expressive dysphasia and dysarthria , continue ASA 325mg po daily, stroke protocol, Rehab on d/c (3) Seizure disorder Code(s): G40.909 - EPILEPSY, UNSP, NOT INTRACTABLE, WITHOUT STATUS EPILEPTICUS Status: Acute Comment: Change Keppra 500mg po BID (4) CKD (chronic kidney disease) stage 2, GFR 60-89 ml/min Code(s): N18.2 - CHRONIC KIDNEY DISEASE, STAGE 2 (MILD) Status: Chronic Comment: Follow renal fuction, avoid nephrotoxic meds and limit contrast exposure, hold Metformin (5) HTN (hypertension) Code(s): I10 - ESSENTIAL (PRIMARY) HYPERTENSION Status: Chronic Qualifiers: Hypertension type: essential hypertension Qualified Code(s): I10 - Essential (primary) hypertension Comment: Continue Coreg with Amlodipine/Benazepril, follow serially - Plan * Break through seizure- she was recently diagnosed with seizures following a previous CVA- She is now extubated, and on Keppra IV * Await recommendations from Neurology * She had a previous work-up for seizures a few months ago * RUL Opacity on CXR and CT-scan- ? etiology- this may represent an infection, however clinically she does not appear to have pneumonia- will re-evaluate once she is more alert * DM- will start a SSI, and add Metformin back when she is once again more alert * CKD stage 2- stable * HTN-Stable
[2017-08-23] MEDS: Heparin 5,000 UNITS/ML VIAL SC SCH ×2 (09:35→20:38)
--- NOTE | 2017-08-24 08:21 | PRG ---
DATE OF SERVICE: 08/24/2017 This morning she is awake and responsive. She was extubated yesterday. Status post seizures. This morning she denies any headache, shortness of breath. PHYSICAL EXAMINATION: VITAL SIGNS: Sats are 95 on room air, pulse 80, blood pressure is 130/88, respirations 18. NEUROLOGIC: Awake, alert, responsive, moves all 4 extremities. CHEST: Chest reveals decreased breath sounds, no wheezing. CARDIAC: Normal S1, S2. No gallops. ABDOMEN: Soft, no masses. IMPRESSION: 1. Status post seizure activity. 2. Encephalopathy. PLAN: Continue care. She is stable, she can be transferred out of the ICU.
--- NOTE | 2017-08-24 08:39 | PDOC.PN ---
- Subjective Encounter Start Date: 08/24/17 Encounter Start Time: 08:38 Ms. Mcmillan was seen today in follow-up of seizures. she is much more alert and awake today. She knows she is in the hospital at [place], and knnows that she is here because she had a seizure. she says she may have missed a dose of seizure medication. - Objective Resuscitation Status: Resuscitation Status FULL:Full Resuscitation MAR Reviewed: Yes Vital Signs & Weight: Vital Signs (12 hours) Temp Pulse Resp Pulse Ox 08/24/17 08:00 97.8 F 08/24/17 07:27 97.8 F 81 19 99 08/24/17 04:00 98.8 F 08/24/17 00:00 98.8 F Weight Weight 2.219 oz Most Recent Monitor Data Heart Rate from ECG 77 NIBP 163/94 NIBP BP-Mean 141 Respiration from ECG 16 SpO2 98 I&O: 08/23/17 08/24/17 08/25/17 06:59 06:59 06:59 Intake Total 536 614 118 Output Total 840 950 53 Balance -304 -336 65 Result Diagrams: 08/23/17 05:20 08/23/17 05:20 Additional Labs: Accuchecks 08/24/17 08/23/17 08/23/17 06:20 20:38 18:37 POC Glucose 65 L 77 119 H 08/23/17 08/23/17 16:36 11:25 POC Glucose 64 L 88 Phys Exam - Physical Examination HEENT: PERRLA Respiratory: no wheezing, no rales, no rhonchi, clear to auscultation bilateral Cardiovascular: RRR, no significant murmur, no rub Gastrointestinal: soft, non-tender, positive bowel sounds Musculoskeletal: no edema Dx/Plan (1) Seizure disorder Code(s): G40.909 - EPILEPSY, UNSP, NOT INTRACTABLE, WITHOUT STATUS EPILEPTICUS Status: Acute Comment: Change Keppra 500mg po BID (2) Chronic diastolic heart failure Code(s): I50.32 - CHRONIC DIASTOLIC (CONGESTIVE) HEART FAILURE Status: Acute (3) CVA (cerebral vascular accident) Code(s): I63.9 - CEREBRAL INFARCTION, UNSPECIFIED Status: Acute Qualifiers: CVA mechanism: unspecified Qualified Code(s): I63.9 - Cerebral infarction, unspecified Comment: Ischemic R frontal involvement with expressive dysphasia and dysarthria , continue ASA 325mg po daily, stroke protocol, Rehab on d/c (4) CKD (chronic kidney disease) stage 2, GFR 60-89 ml/min Code(s): N18.2 - CHRONIC KIDNEY DISEASE, STAGE 2 (MILD) Status: Chronic Comment: Follow renal fuction, avoid nephrotoxic meds and limit contrast exposure, hold Metformin (5) HTN (hypertension) Code(s): I10 - ESSENTIAL (PRIMARY) HYPERTENSION Status: Chronic Qualifiers: Hypertension type: essential hypertension Qualified Code(s): I10 - Essential (primary) hypertension Comment: Continue Coreg with Amlodipine/Benazepril, follow serially - Plan * Seizure- with breakthrough seizure- Keppra has been increased to 750mg twice a day, and will change that to an oral dose * Chronic diastolic heart failure- compensated * HTN- blood pressure has been a bit labile- will re-start her home medications * DM- will advance her diet, and re-start Metformin * Stable for transfer out of the ICU .
[2017-08-24] MEDS: Aspirin 325 MG TAB PO SCH (09:48)
[2017-08-24] MEDS: Furosemide 40 MG TAB PO SCH ×2 (09:48→20:37)
[2017-08-24] MEDS: Lisinopril 20 MG TAB PO SCH ×2 (09:48→20:36)
[2017-08-24] MEDS: Heparin 5,000 UNITS/ML VIAL SC SCH ×2 (09:48→20:37)
[2017-08-24] MEDS: Carvedilol 3.125 MG TAB PO SCH ×2 (09:48→20:38)
[2017-08-24] MEDS: Amlodipine 5 mg/Benazepril 20 mg CAP PO SCH ×2 (09:49→20:38)
[2017-08-24 09:55] LABS: Anion Gap 13 mmol/L (10-20); BUN (Urea Nitrogen) 13 mg/dL (9.8-20.1); Calc. Creatinine Clearance 0 mL/min (70-130); Calcium 8.6 mg/dL (7.8-10.44); Carbon Dioxide 22 mmol/L (23-31); Chloride 112 mmol/L (98-107); Estimated GFR-MDRD 87; Glucose 95 mg/dL (83-110); Potassium 3.7 mmol/L (3.5-5.1); Sodium 143 mmol/L (136-145)
[2017-08-24] MEDS: levETIRAcetam 500 mg/5 ml Oral Solution PO SCH ×2 (10:07→20:38)
[2017-08-24] MEDS: metFORMIN 500 MG TAB PO SCH (17:11)
[2017-08-24] MEDS: Simvastatin 5 MG TAB PO SCH (20:37)
[2017-08-25] MEDS: Potassium Chloride 20 MEQ TAB PO SCH (09:09)
[2017-08-25] MEDS: metFORMIN 500 MG TAB PO SCH ×2 (09:09→16:44)
[2017-08-25] MEDS: Aspirin 325 MG TAB PO SCH (09:10)
[2017-08-25] MEDS: Furosemide 40 MG TAB PO SCH ×2 (09:10→21:12)
[2017-08-25] MEDS: Heparin 5,000 UNITS/ML VIAL SC SCH ×2 (09:10→21:12)
[2017-08-25] MEDS: Amlodipine 5 mg/Benazepril 20 mg CAP PO SCH ×2 (09:10→21:11)
[2017-08-25] MEDS: Carvedilol 3.125 MG TAB PO SCH ×2 (09:10→21:11)
[2017-08-25] MEDS: Lisinopril 20 MG TAB PO SCH ×2 (09:11→21:12)
[2017-08-25] MEDS: levETIRAcetam 500 mg/5 ml Oral Solution PO SCH ×2 (09:11→21:11)
--- NOTE | 2017-08-25 13:45 | PDOC.PN ---
- Subjective Encounter Start Date: 08/25/17 Encounter Start Time: 13:49 Subjective: Patient seen and examined following a seizure episode. has no complaints -: No acute events overnight. - Objective Resuscitation Status: Resuscitation Status FULL:Full Resuscitation MAR Reviewed: Yes Vital Signs & Weight: Vital Signs (12 hours) Temp Pulse Resp BP BP Pulse Ox 08/25/17 12:00 98.4 F 71 16 96/74 95 08/25/17 09:11 143/82 H 08/25/17 08:00 98.6 F 62 14 96 08/25/17 07:43 98.6 F 62 14 143/82 H 08/25/17 04:27 62 163/88 H Weight Weight 154 lb 11.2 oz Most Recent Monitor Data Heart Rate from ECG 64 NIBP 159/101 NIBP BP-Mean 134 Respiration from ECG 17 SpO2 100 I&O: 08/24/17 08/25/17 08/26/17 06:59 06:59 06:59 Intake Total 614 118 Output Total 950 773 Balance -336 -465 Result Diagrams: 08/23/17 05:20 08/24/17 08:57 Additional Labs: Accuchecks 08/25/17 08/25/17 08/24/17 10:50 06:10 20:46 POC Glucose 114 H 80 105 08/24/17 16:49 POC Glucose 79 Phys Exam - Physical Examination Constitutional: NAD HEENT: PERRLA, moist MMs, sclera anicteric, oral pharynx no lesions Neck: no JVD, supple, full ROM Respiratory: no wheezing, no rales, no rhonchi, clear to auscultation bilateral Cardiovascular: no significant murmur, no rub, irregular Gastrointestinal: soft, non-tender, no distention, positive bowel sounds Musculoskeletal: no edema, pulses present AO x 2. Skin: no rash, normal turgor Dx/Plan (1) Seizure disorder Code(s): G40.909 - EPILEPSY, UNSP, NOT INTRACTABLE, WITHOUT STATUS EPILEPTICUS Status: Acute Comment: Has remained seizure free. Keppra dose increased to 750 mg. (2) Chronic diastolic heart failure Code(s): I50.32 - CHRONIC DIASTOLIC (CONGESTIVE) HEART FAILURE Status: Chronic Comment: Stable, not in acute exacerbation. (3) Atrial fibrillation Code(s): I48.91 - UNSPECIFIED ATRIAL FIBRILLATION Status: Chronic Comment: Rate controlled. Continue Coreg. (4) CVA (cerebral vascular accident) Code(s): I63.9 - CEREBRAL INFARCTION, UNSPECIFIED Status: Chronic Qualifiers: CVA mechanism: unspecified Qualified Code(s): I63.9 - Cerebral infarction, unspecified Comment: Stable. Has a h/o Ischemic R frontal involvement with expressive dysphasia and dysarthria. Continue ASA 325mg po daily. (5) HTN (hypertension) Code(s): I10 - ESSENTIAL (PRIMARY) HYPERTENSION Status: Chronic Qualifiers: Hypertension type: essential hypertension Qualified Code(s): I10 - Essential (primary) hypertension Comment: Fairly well controlled. (6) DM2 (diabetes mellitus, type 2) Status: Acute Qualifiers: Diabetes mellitus requirements engineer insulin use: without residential use - Plan cont current plan of care, out of bed/ambulate, DVT proph w/heparin * . Review of Systems - Medications/Allergies Allergies/Adverse Reactions: Allergies Allergy/AdvReac Type Severity Reaction Status Date / Time No Known Drug Allergies Allergy Verified 08/23/17 00:51 Medications: Current Medications Acetaminophen (Tylenol) 650 mg PO Q4H PRN PRN Reason: Headache/Fever or Pain Last Admin: 08/24/17 12:03 Dose: 650 mg Acetaminophen (Tylenol) 650 mg [place] Q4H PRN PRN Reason: Headache/Fever or Pain Al Hydroxide/Mg Hydroxide (Maalox) 30 ml PO Q6H PRN PRN Reason: Heartburn or Indigestion Amlodipine/Benazepril HCl (Lotrel 5/20) 2 cap PO BID [facility] Last Admin: 08/25/17 09:10 Dose: 2 cap Aspirin (Aspirin) 325 mg PO DAILY [facility] Last Admin: 08/25/17 09:10 Dose: 325 mg Calcium Carbonate (Tums) 1,000 mg PO Q4H PRN PRN Reason: Heartburn or Indigestion Carvedilol (Coreg) 3.125 mg PO BID [facility] Last Admin: 08/25/17 09:10 Dose: Not Given Dextrose/Water (Dextrose 50%) 25 gm SLOW IVP PRN PRN PRN Reason: Hypoglycemia Furosemide (Lasix) 40 mg PO BID [facility] Last Admin: 08/25/17 09:10 Dose: Not Given Glucagon (Glucagon) 1 mg IM PRN PRN PRN Reason: Hypoglycemia Heparin Sodium (Porcine) (Heparin) 5,000 units SC BID [facility] Last Admin: 08/25/17 09:10 Dose: Not Given Dextrose/Water (D5w) 1,000 mls @ 0 mls/hr IV .Q0M PRN; As Directed PRN Reason: Hypoglycemia Last Admin: 08/23/17 16:36 Dose: 1,000 mls Insulin Human Lispro (Humalog) 0 units SC .MILD SLIDING SCALE PRN PRN Reason: Mild Correctional Scale Levetiracetam (Keppra Oral Solution) 750 mg PO BID [facility] Last Admin: 08/25/17 09:11 Dose: 750 mg Lisinopril (Zestril) 20 mg PO BID [facility] Last Admin: 08/25/17 09:11 Dose: Not Given Metformin HCl (Glucophage) 500 mg PO BID-[facility] Last Admin: 08/25/17 09:09 Dose: Not Given Potassium Chloride (K-Dur) 20 meq PO QAM-[facility] Last Admin: 08/25/17 09:09 Dose: Not Given Senna (Senokot) 2 tab PO HSPRN PRN PRN Reason: Constipation Sertraline HCl (Zoloft) 50 mg PO DAILY [facility] Last Admin: 08/25/17 09:11 Dose: Not Given Simvastatin (Zocor) 10 mg PO [facility] Last Admin: 08/24/17 20:37 Dose: 10 mg
--- NOTE | 2017-08-25 19:16 | PRG ---
DATE OF SERVICE: 08/25/2017 SERVICE: Pulmonary Medicine. INTERVAL HISTORY: The patient is doing fine from a respiratory standpoint. She is on room air. She did not have a seizure since several days ago. Otherwise, there has been no interval change to her condition. Hemodynamics remained stable. She denies having any chest pain or shortness of breath. PHYSICAL EXAMINATION: VITAL SIGNS: Afebrile, pulse 73, blood pressure 120/65, respirations 16, saturation 97% on room air. GENERAL: The patient is awake and alert, in no apparent distress. LUNGS: Excellent air entry. There is no prolonged expiratory phase or wheezing present. No crackle s or rhonchi. HEART: Normal rate, regular. ABDOMEN: Soft, nontender, nondistended. Bowel sounds are positive. MUSCULOSKELETAL: No cyanosis or clubbing. No pitting in the bilateral lower extremities. NEUROLOGIC: Grossly nonfocal. LABORATORY DATA: WBC 8.9, hemoglobin stable at 11.3, platelets 182. INR is 1.2. Basic metabolic pr ofile was previously unremarkable. ASSESSMENT: 1. Seizure disorder, resolved. 2. Encephalopathy, clearing. DISCUSSION AND PLAN: At this point, the patient has no further requirements for inpatient Pulmonary or Critical Care opinion. As such, we will sign off. Please call with additional questions or jaonna rns moving forward.
[2017-08-25] MEDS: Simvastatin 5 MG TAB PO SCH (21:11)
[2017-08-26 08:39] LABS: Hemoglobin 11.7 g/dL (12.0-16.0); Mean Corpuscular HGB CONC 32.6 g/dL (32.0-36.0); Mean Corpuscular Hemoglobin 29.6 pg (27.0-31.0); Mean Corpuscular Volume 90.6 fl (81.0-99.0); Platelet Count 245 thou/uL (130-400); RBC Distribution Width 13.3 % (11.5-14.5); Red Blood Cell (RBC) Count 3.95 mill/uL (4.20-5.40); White Blood Cell (WBC) Count 6.1 thou/uL (4.8-10.8)
[2017-08-26 08:59] LABS: Anion Gap 16 mmol/L (10-20); BUN (Urea Nitrogen) 9 mg/dL (9.8-20.1); Calc. Creatinine Clearance 55 mL/min (70-130); Calcium 8.6 mg/dL (7.8-10.44); Carbon Dioxide 24 mmol/L (23-31); Chloride 106 mmol/L (98-107); Estimated GFR-MDRD 78; Glucose 96 mg/dL (83-110); Potassium 3.3 mmol/L (3.5-5.1); Sodium 143 mmol/L (136-145)
[2017-08-26] MEDS ORDERED: Carvedilol 3.125 MG TAB PO SCH (09:00)
[2017-08-26 09:05] LABS: Magnesium 0.9 mg/dL (1.6-2.6)
[2017-08-26] MEDS ORDERED: Magnesium Sulfate 4 GM in Sodium Chloride 0.9% 250 ML 250 ML IVPB SCH (09:15)
[2017-08-26] MEDS ORDERED: Potassium Chloride 20 MEQ TAB PO SCH (09:15)
[2017-08-26] MEDS: levETIRAcetam 500 mg/5 ml Oral Solution PO SCH (09:38)
[2017-08-26] MEDS: Amlodipine 5 mg/Benazepril 20 mg CAP PO SCH ×2 (09:39→10:07)
[2017-08-26] MEDS: metFORMIN 500 MG TAB PO SCH ×2 (09:39→10:05)
[2017-08-26] MEDS: Lisinopril 20 MG TAB PO SCH ×2 (09:40→10:08)
[2017-08-26] MEDS: Aspirin 325 MG TAB PO SCH (09:40)
[2017-08-26] MEDS: Furosemide 40 MG TAB PO SCH ×2 (09:40→10:08)
[2017-08-26] MEDS: Heparin 5,000 UNITS/ML VIAL SC SCH ×2 (09:41→10:08)
[2017-08-26] MEDS: Potassium Chloride 20 MEQ TAB PO SCH (09:51)
[2017-08-26 15:46] VITALS: BP 145/80; TEMP 98.5
--- NOTE | 2017-08-26 16:43 | PDOC.PN ---
- Subjective Encounter Start Date: 08/26/17 Encounter Start Time: 11:00 Seen and examined following admission for seizures. has been seizure free. No complaints. - Objective Resuscitation Status: Resuscitation Status FULL:Full Resuscitation MAR Reviewed: Yes Vital Signs & Weight: Vital Signs (12 hours) Temp Pulse Resp BP BP Pulse Ox 08/26/17 15:45 98.5 F 90 16 145/80 H 95 08/26/17 11:41 97.9 F 65 16 136/79 98 08/26/17 10:08 125/68 08/26/17 08:00 97.7 F 50 L 20 134/63 98 08/26/17 05:49 93 L Weight Weight 148 lb 4.8 oz Most Recent Monitor Data Heart Rate from ECG 64 NIBP 159/101 NIBP BP-Mean 134 Respiration from ECG 17 SpO2 100 I&O: 08/25/17 08/26/17 08/27/17 06:59 06:59 06:59 Intake Total 118 Output Total 773 Balance -655 Result Diagrams: 08/26/17 08:24 08/26/17 08:24 Additional Labs: Accuchecks 08/26/17 08/26/17 08/26/17 10:31 08:30 06:21 POC Glucose 92 96 85 08/25/17 20:49 POC Glucose 87 Phys Exam - Physical Examination Constitutional: NAD HEENT: PERRLA, moist MMs, sclera anicteric Neck: no JVD, supple, full ROM Respiratory: no wheezing, no rales, no rhonchi, clear to auscultation bilateral Cardiovascular: RRR, no significant murmur, no rub Gastrointestinal: soft, non-tender, no distention, positive bowel sounds Musculoskeletal: no edema Neurological: non-focal, moves all 4 limbs Dx/Plan (1) Seizure disorder Code(s): G40.909 - EPILEPSY, UNSP, NOT INTRACTABLE, WITHOUT STATUS EPILEPTICUS Status: Acute Comment: Has remained seizure free. Keppra dose increased to 750 mg. (2) Chronic diastolic heart failure Code(s): I50.32 - CHRONIC DIASTOLIC (CONGESTIVE) HEART FAILURE Status: Chronic Comment: Stable, not in acute exacerbation. (3) Atrial fibrillation Code(s): I48.91 - UNSPECIFIED ATRIAL FIBRILLATION Status: Chronic Comment: Rate controlled. Continue Coreg. (4) CVA (cerebral vascular accident) Code(s): I63.9 - CEREBRAL INFARCTION, UNSPECIFIED Status: Chronic Qualifiers: CVA mechanism: unspecified Qualified Code(s): I63.9 - Cerebral infarction, unspecified Comment: Stable. Has a h/o Ischemic R frontal involvement with expressive dysphasia and dysarthria. Continue ASA 325mg po daily. (5) HTN (hypertension) Code(s): I10 - ESSENTIAL (PRIMARY) HYPERTENSION Status: Chronic Qualifiers: Hypertension type: essential hypertension Qualified Code(s): I10 - Essential (primary) hypertension Comment: Fairly well controlled. (6) DM2 (diabetes mellitus, type 2) Status: Acute Qualifiers: Diabetes mellitus intermodal customer service insulin use: without custodial use - Plan * . Review of Systems - Medications/Allergies Allergies/Adverse Reactions: Allergies Allergy/AdvReac Type Severity Reaction Status Date / Time No Known Drug Allergies Allergy Verified 08/23/17 00:51 Medications: Current Medications Acetaminophen (Tylenol) 650 mg PO Q4H PRN PRN Reason: Headache/Fever or Pain Last Admin: 08/24/17 12:03 Dose: 650 mg Acetaminophen (Tylenol) 650 mg IN Q4H PRN PRN Reason: Headache/Fever or Pain Al Hydroxide/Mg Hydroxide (Maalox) 30 ml PO Q6H PRN PRN Reason: Heartburn or Indigestion Amlodipine/Benazepril HCl (Lotrel 5/20) 2 cap PO BID [facility] Last Admin: 08/26/17 10:07 Dose: Not Given Aspirin (Aspirin) 325 mg PO DAILY [facility] Last Admin: 08/26/17 09:40 Dose: 325 mg Calcium Carbonate (Tums) 1,000 mg PO Q4H PRN PRN Reason: Heartburn or Indigestion Carvedilol (Coreg) 3.125 mg PO BID [facility] Last Admin: 08/26/17 09:41 Dose: Not Given Dextrose/Water (Dextrose 50%) 25 gm SLOW IVP PRN PRN PRN Reason: Hypoglycemia Furosemide (Lasix) 40 mg PO BID [facility] Last Admin: 08/26/17 10:08 Dose: Not Given Glucagon (Glucagon) 1 mg IM PRN PRN PRN Reason: Hypoglycemia Heparin Sodium (Porcine) (Heparin) 5,000 units SC BID [facility] Last Admin: 08/26/17 10:08 Dose: Not Given Dextrose/Water (D5w) 1,000 mls @ 0 mls/hr IV .Q0M PRN; As Directed PRN Reason: Hypoglycemia Last Admin: 08/23/17 16:36 Dose: 1,000 mls Insulin Human Lispro (Humalog) 0 units SC .MILD SLIDING SCALE PRN PRN Reason: Mild Correctional Scale Levetiracetam (Keppra Oral Solution) 750 mg PO BID [facility] Last Admin: 08/26/17 09:38 Dose: 750 mg Lisinopril (Zestril) 20 mg PO BID [facility] Last Admin: 08/26/17 10:08 Dose: Not Given Magnesium Oxide (Magnesium Oxide) 400 mg PO BID [facility] Metformin HCl (Glucophage) 500 mg PO BID[facility] Last Admin: 08/26/17 10:05 Dose: Not Given Potassium Chloride (K-Dur) 20 meq PO QAM-[facility] Last Admin: 08/26/17 09:51 Dose: 20 meq Senna (Senokot) 2 tab PO HSPRN PRN PRN Reason: Constipation Sertraline HCl (Zoloft) 50 mg PO DAILY [facility] Last Admin: 08/26/17 09:40 Dose: 50 mg Simvastatin (Zocor) 10 mg PO HS [facility] Last Admin: 08/25/17 21:11 Dose: 10 mg Sodium Chloride (Flush - Normal Saline) 10 ml IVF Q12HR [facility] Sodium Chloride (Flush - Normal Saline) 10 ml IVF PRN PRN PRN Reason: Saline Flush
[2017-08-26] MEDS ORDERED: Magnesium Oxide 400 MG TAB PO SCH (21:00)
--- NOTE | 2017-08-27 14:16 | DIS ---
DATE OF ADMISSION: 08/22/2017 DATE OF DISCHARGE: 08/26/2017 DISCHARGE DIAGNOSES: 1. Seizure disorder. 2. Chronic diastolic heart failure. 3. Atrial fibrillation, chronic. 4. Cerebrovascular accident history. 5. Hypertension. 6. Type 2 diabetes mellitus. HISTORY OF PRESENT ILLNESS/HOSPITAL COURSE: Ms. Roxie Mcmillan is an 82-year-old female with a history of seizure disorder with CVA in May of this year who was brought to the emergency room after an ep isode of seizure at home. EMS was called and the patient was subsequently intubated for airway prote ction. There was no family at bedside, but per ER report the seizure was thought to be generalized t onic clonic with some deviation of her eyes to the right. Physical examination showed responsive pupils, but sluggish. She has rhonchi on the right side, but no wheezes or rales. Neurologic examination was not possible due to the patient being intubated and s edated. Labs showed ABG of 7.37 with pCO2 of 40, pO2 of 105.6. Serum chemistry was largely unremarkable apar t from a bicarbonate of 20 and a BUN/creatinine of 35/1.46 respectively, and glucose of 245 and initi al troponin of 0.084. She had a CT scan of the brain which was negative for acute CVA. Chest x-ray was negative for infiltrate, but showed increased bronchopulmonary markings. CT of the head and neck were both negative. Impression of status epilepticus was made and acute respiratory failure is prob ably secondary to status epilepticus was also made. She was admitted to the ICU and placed on mechan ical ventilation. Critical Care consultation received and loading dose of IV Keppra and then her mayo e Keppra was increased to 750 mg twice a day. She was also started on IV fluids secondary to her acu te kidney injury as well as insulin sliding scale. She continued to improve with treatment and she w as eventually extubated and transferred to the regular floor. The patient was back to her baseline, acute kidney injury resolved and she was deemed stable for discharge. While in hospital, she was rev iewed by Pulmonary care and neurologist. DISCHARGE MEDICATIONS: Keppra 750 mg twice a day, magnesium oxide 400 mg twice a day, pravastatin so dium 20 mg at bedtime, amlodipine 1 tablet daily, potassium chloride 20 mEq every morning with breakf ast, sertraline 50 mg daily, metformin 500 mg twice a day with meals, aspirin 325 mg daily, Ergocalci ferol 50,000 units weekly, carvedilol 3.125 mg twice a day, lisinopril 20 mg twice a day, furosemide 40 mg twice a day. PHYSICAL EXAMINATION: She was examined on the day of discharge. VITAL SIGNS: Temperature 98.5 degree Fahrenheit, pulse rate 90, respiratory rate 16, oxygen saturati on 95% on room air, blood pressure 136/79. GENERAL: Not in acute distress. She is sitting comfortably in bed, eating breakfast. HEENT: PERRLA, EOMI. Moist mucous membranes. NECK: No JVD, supple. Full range of movement. RESPIRATORY: No wheezing, rales or rhonchi. Vesicular breath sounds bilaterally. CARDIOVASCULAR: Regular rate and rhythm. No murmurs, rubs or gallops. ABDOMEN: Soft, nontender, nondistended. Bowel sounds normoactive. EXTREMITIES: No edema. NEUROLOGIC: Focal, moves all regions, awake, alert and oriented x1. LABORATORY: Sodium 143, potassium 3.3, chloride 103, carbon dioxide 24, anion gap 15, BUN 9, creatin ine 0.85, glucose 96, calcium 8.6, hemoglobin 11.7, WBC 6.1, platelet count 245. IMAGING: Brain CT, CT [facility] [place] angio with contrast on CT angiography as stated in HPI. Ches t x-ray. CONDITION ON DISCHARGE: Stable and improved. CONSULTS: Neurology. DIET: Heart healthy, diabetic. ACTIVITY: To resume as tolerated. CARE GOALS: Follow up with her primary care physician within 2 weeks of discharge for repeat labs. Discharge time 65 minutes including chart review and documentation.
== END 2017-08-26 16:45 | disposition home or self-care (01) | DRG 100 ==
LOC: ERS 20:13 → CCU 22:11 → 2SE 08-24 09:01
PROVIDERS: ADMIT Internal Medicine; ATTEND Internal Medicine
PROC: 5A1945Z Respiratory Ventilation, 24-96 Consecutive Hours (ICD-10-PCS; principal; 2017-08-22)
DX: G40.909 Epilepsy, unspecified, not intractable, without status epilepticus (principal); J96.01 Acute respiratory failure with hypoxia; N17.9 Acute kidney failure, unspecified; I24.8 Other forms of acute ischemic heart disease; I50.32 Chronic diastolic (congestive) heart failure; Z86.73 Personal history of transient ischemic attack (TIA), and cerebral infarction without residual deficits; E03.9 Hypothyroidism, unspecified; Z79.82 Long term (current) use of aspirin; N18.2 Chronic kidney disease, stage 2 (mild); I12.9 Hypertensive chronic kidney disease with stage 1 through stage 4 chronic kidney disease, or unspecified chronic kidney disease; E11.22 Type 2 diabetes mellitus with diabetic chronic kidney disease; I48.2 Chronic atrial fibrillation
CPT/HCPCS: 36415; 36416; 51702; 70450; 70496; 70498; 71045; 80048; 80053; 80177; 80306; 81003; 81015; 82553; 82805; 83735; 84100; 84439; 84443; 84484; 85025; 85027; 85610; 85730; 93005; 94002; 94003; 96365; 96366; J1644; J1953; J2704; J3475; J7050

== ENCOUNTER 2017-12-16 13:24 | Inpatient (IN) | payer MEDICARE, MEDICAID ==
[2017-12-16 14:26] LABS: Hemoglobin 12.3 g/dL (12.0-16.0); Mean Corpuscular HGB CONC 31.7 g/dL (32.0-36.0); Mean Corpuscular Hemoglobin 29.9 pg (27.0-31.0); Mean Corpuscular Volume 94.1 fL (78.0-98.0); Mean Platelet Volume 8.1 fL (7.4-10.4); Platelet Count 382 thou/uL (130-400); RBC Distribution Width 13.9 % (11.5-14.5); Red Blood Cell (RBC) Count 4.13 mill/uL (4.20-5.40); White Blood Cell (WBC) Count 7.3 thou/uL (4.8-10.8)
--- NOTE | 2017-12-16 14:40 | RAD ---
CHEST 1 VIEW: HISTORY: Dyspnea. COMPARISON: 08/22/17. FINDINGS: Slight elongation of the aorta. Normal cardiac silhouette. The pulmonary vessels and hilum are norm al. Costophrenic angles are clear. Slight diminished lung volumes likely due to poor inspiratory ef fort. Chronic change of the lung parenchyma. No consolidation or mass. No pneumothorax. The dista l left clavicle appears to be high-riding with respect to the adjacent acromion. Left shoulder radio graph from 10/23/17 demonstrates truncation of the distal left clavicle. Findings are presumed to be chronic. IMPRESSION: No acute cardiopulmonary process. POS: PPP
[2017-12-16 14:42] LABS: ALT (SGPT) 9 U/L (8-55); AST (SGOT) 21 U/L (5-34); Albumin 2.7 g/dL (3.4-4.8); Alkaline Phosphatase 94 U/L (40-150); Anion Gap 19 mmol/L (10-20); BUN (Urea Nitrogen) 26 mg/dL (9.8-20.1); Bilirubin, Total Less than 0.2 mg/dL (0.2-1.2); CK (CPK) 21 U/L (29-168); Calc. Creatinine Clearance 0 mL/min (70-130); Calcium 8.9 mg/dL (7.8-10.44); Carbon Dioxide 22 mmol/L (23-31); Chloride 98 mmol/L (98-107); Estimated GFR-MDRD Greater than 90; Globulin 3.9 g/dL (2.4-3.5); Glucose 108 mg/dL (83-110); Potassium 4.4 mmol/L (3.5-5.1); Protein, Total 6.6 g/dL (6.0-8.3); Sodium 135 mmol/L (136-145)
[2017-12-16 14:46] LABS: Band 7 % (5-11); Lymphocytes 5 % (21-51); MDiff Complete? YES; Monocytes 3 % (0-10); Neutrophil 85 % (42-75); PLT Morphology Comment Appears Adequate
[2017-12-16 14:50] LABS: CKMB 1.7 ng/mL (0-6.6); Troponin I Less than 0.010 ng/mL (< 0.028)
[2017-12-16] MEDS ORDERED: Aspirin 300 MG Suppository ONE (15:08)
[2017-12-16] MEDS ORDERED: Enoxaparin Sodium 80 MG/0.8 ML SYRINGE ONE (15:08)
[2017-12-16] MEDS ORDERED: Dextrose 5% in Water 1,000 ML IV PRN (15:44)
[2017-12-16] MEDS ORDERED: Guaifenesin DM 100-10/5 ML UDCUP PO PRN (15:44)
[2017-12-16] MEDS ORDERED: Senokot 8.6 MG TAB PO PRN (15:44)
[2017-12-16] MEDS ORDERED: Acetaminophen 325 MG TAB PO PRN (15:44)
[2017-12-16] MEDS ORDERED: Dextrose 50% Abboject 50 ML SYRINGE SLOW IVP PRN (15:44)
[2017-12-16] MEDS ORDERED: HumaLOG 300 UNITS/3 ML VIAL SC PRN (15:44)
[2017-12-16] MEDS ORDERED: Ondansetron HCl/PF 4 MG/2 ML Vial IVP PRN (15:44)
--- NOTE | 2017-12-16 15:45 | RAD ---
RIGHT FOOT RADIOGRAPHS: 12/16/2017 PROVIDED CLINICAL HISTORY: Right foot infection. FINDINGS: Degenerative changes are seen. There is no evidence for fracture. No radiographically apparent oste olytic process. If there is persistent clinical concern for osteomyelitis, MRA would be a more sensi tive modality in assessing for such. IMPRESSION: As above. POS: MONICA
[2017-12-16 16:29] LABS: Bilirubin Negative (Negative); Blood, Urine Small (Negative); Clarity CLEAR (Clear); Glucose, Urine (Dipstick) Negative (Negative); Leukocyte Small (Negative); Nitrite Negative (Negative); Protein, Urine (Dipstick) Negative (Neg-Trace); Specific Gravity, Urine 1.019 (1.002-1.036); Urobilinogen 0.2 mg/dL (0.2-1.0); pH, Urine 7.5 (5.0-9.0)
[2017-12-16 16:31] LABS: Bacteria/HPF None Seen HPF (None Seen); Hyaline Casts/LPF 0-3 HYALINE CAST LPF (0-3 Hyaline); Pathc Cast-AUWi Flag 0.14 (0-2.49); RBC/HPF 0-3 HPF (0-3); Squamous Epithelial 0-3 HPF (0-3); WBC/HPF 0-3 HPF (0-3)
[2017-12-16 17:25] LABS: Troponin I Less than 0.010 ng/mL (< 0.028)
--- NOTE | 2017-12-16 17:29 | HP ---
DATE OF ADMISSION: 12/16/2017 REASON FOR ADMISSION: Atrial fibrillation with rapid ventricular response, generalized anasarca, right foot decubitus ulcer, likely stage IV, which is infected. HISTORY OF PRESENT ILLNESS: The patient lives at [facility] and EMS was summoned as she has had progressive swelling of both upper extremities. EMS arrival at [facility] found her in atrial fibrillation with RVR. She was started on Cardizem drip by EMS. On arrival here in the ER, the patient was found to have had right leg lateral aspect infected wound as well. The patient was scheduled to see Dr. Smallwood this coming week for the same. She has also been on ciprofloxacin for that from the of this month. The patient has very limited verbal communication due to her prior history of CVA. PAST MEDICAL AND SURGICAL HISTORY: History of chronic atrial fibrillation, history of CVA, seizure disorder, hypertension, hypothyroidism, diastolic dysfunction, diabetes mellitus type 2, left hip surgery, multiple decubitus. CURRENT MEDICATIONS: Per [facility] records, the patient is on Tylenol p.r.n. , aspirin 81 mg daily, calcium 500 mg daily, Coreg 3.125 mg twice daily, ciprofloxacin 500 mg p.o. twice daily for right lower extremity ulcer started on 12/12/2017, Neurontin 200 mg 3 times daily, Keppra 500 mg twice daily, metformin 500 mg twice daily, Pravachol 20 mg at bedtime, Seroquel 50 mg twice daily, sertraline 50 mg p.o. at bedtime, valproic acid 1 g twice daily, vitamin C 500 mg twice daily. ALLERGIES: No known drug allergies. PERSONAL HISTORY: The patient is a [facility] resident at present. Does not abuse alcohol or drugs. FAMILY HISTORY: Cannot be obtained, as the patient is nonverbal and is cognitively not intact. PHYSICAL EXAMINATION: GENERAL: The patient is an 82-year-old female who is currently not in any distress. VITAL SIGNS: Blood pressure 126/94, pulse 90 per minute, respiratory rate 16 per minute, temperature 98.5 degrees Fahrenheit, saturating 97% on room air. NECK: Supple. No elevated JVD. HEENT: Extraocular muscles intact. Pupils reacting to light. Oral cavity, mucous membranes are moist. No exudates or congestion. CARDIOVASCULAR: S1, S2 heard. Irregular rhythm. RESPIRATORY: Air entry 1+ bilateral. Scattered rhonchi plus. No rales or wheezes. ABDOMEN: Soft. Bowel sounds heard. No tenderness, rigidity or guarding. EXTREMITIES: The patient has nonhealing right lateral leg ulcer, which is fairly large, likely stage III to stage IV. She also has a right heel decubitus. Has edema in all 4 extremities. The patient's right lower extremity has flexion and external rotation contracture. CENTRAL NERVOUS SYSTEM: The patient has chronic left-sided hemiparesis, but also has right lower extremity contracture with external rotation. The patient has reflex withdrawal on both lower extremities, but better on right lower extremity for Babinski. PSYCHIATRIC SYSTEM: Cannot be assessed as the patient has aphasia and speaks very few words. No obvious hallucinations or delusions. LABORATORY AND X-RAY FINDINGS: White count of 7, H and H 12 and 38, platelet count 382,000, MCV is 94 with 85% neutrophils and 7% bands. Sodium 135, serum bicarbonate 22, BUN 26, creatinine 0.6. Liver enzymes are within normal limits. Albumin is 2.7, total protein 6.6. Troponin I less than 0.01. Chest x -ray done shows no acute cardiopulmonary process. Right foot x-ray shows no evidence of fracture. EKG done in the ER shows atrial fibrillation at 84 beats per minute. Apparently, EMS found her to be in atrial fibrillation with RVR at 126 beats per minute. CLINICAL IMPRESSION AND PLAN: The patient will be admitted to telemetry for atrial fibrillation with rapid ventricular response with known history of chronic atrial fibrillation, right leg decubitus ulcer, which appears to be stage III-IV and is infected. Wound cultures and blood cultures have been obtained in the ER. We will place her on Zosyn and vancomycin. We will obtain wound care consultation as well and likely general surgical consultation with Dr. Weaver who is resolution agent tomorrow. We will continue her Keppra and valproic acid as before. We will also continue her Seroquel, sertraline and Neurontin as before. She will be on increased dose of Coreg, aspirin 81 mg and add Cardizem 60 mg 3 times daily. We will try to discontinue the current Cardizem drip. Patient may be a candidate for BKA and await surgical consultation for the extent of ulceration and adequate blood supply to support healing. I have discussed code status with the patient's daughter, granddaughter and grandson at bedside. They all want her to be do not resuscitate. MTDD
[2017-12-16] MEDS: metFORMIN 500 MG TAB PO SCH (17:45)
[2017-12-16] MEDS: Piperacillin/Tazobactam 3.375 GM in Sodium Chloride 0.9% 100 ML IVPB SCH (18:13)
[2017-12-16 19:54] LABS: Lactic Acid 3.2 mmol/L (0.5-2.2)
[2017-12-16 20:07] LABS: Troponin I Less than 0.010 ng/mL (< 0.028)
[2017-12-16] MEDS ORDERED: Vancomycin HCl 1 GM in Premix Bag 1 BAG IVPB SCH (21:00)
[2017-12-16] MEDS: Carvedilol 6.25 MG TAB PO SCH (21:23)
[2017-12-16] MEDS: Pravastatin Sodium 20 MG TAB PO SCH (21:23)
[2017-12-16] MEDS: Famotidine 20 MG TAB PO SCH (21:24)
[2017-12-16] MEDS: Docusate 100 MG CAP PO SCH (21:24)
[2017-12-16] MEDS: Magnesium Oxide 400 MG TAB PO SCH (21:25)
[2017-12-16] MEDS: levETIRAcetam 500 mg/5 ml Oral Solution PO SCH (21:25)
[2017-12-16] MEDS: Valproate Sodium 250 mg/5 ml UD Cup PO SCH (21:25)
[2017-12-17] MEDS: Piperacillin/Tazobactam 3.375 GM in Sodium Chloride 0.9% 100 ML IVPB SCH ×4 (01:00→17:24)
[2017-12-17] MEDS: Vancomycin HCl 750 MG in Sodium Chloride 0.9% 250 ML 250 ML IVPB SCH ×2 (04:17→15:01)
[2017-12-17 06:13] LABS: Hemoglobin 10.3 g/dL (12.0-16.0); Mean Corpuscular HGB CONC 32.7 g/dL (32.0-36.0); Mean Corpuscular Hemoglobin 30.1 pg (27.0-31.0); Mean Corpuscular Volume 92.2 fL (78.0-98.0); Mean Platelet Volume 8.5 fL (7.4-10.4); Platelet Count 289 thou/uL (130-400); RBC Distribution Width 13.8 % (11.5-14.5); Red Blood Cell (RBC) Count 3.43 mill/uL (4.20-5.40); White Blood Cell (WBC) Count 8.2 thou/uL (4.8-10.8)
[2017-12-17 06:14] LABS: Anion Gap 16 mmol/L (10-20); BUN (Urea Nitrogen) 26 mg/dL (9.8-20.1); Band 14 % (5-11); Calc. Creatinine Clearance 81 mL/min (70-130); Calcium 8.3 mg/dL (7.8-10.44); Carbon Dioxide 24 mmol/L (23-31); Chloride 100 mmol/L (98-107); Estimated GFR-MDRD Greater than 90; Glucose 153 mg/dL (83-110); Lymphocytes 23 % (21-51); MDiff Complete? YES; Monocytes 8 % (0-10); Neutrophil 49 % (42-75); Potassium 4.2 mmol/L (3.5-5.1); Reactive Lymphocytes 6 % (0-10); Sodium 136 mmol/L (136-145)
[2017-12-17] MEDS: Famotidine 20 MG TAB PO SCH ×2 (08:35→19:46)
[2017-12-17] MEDS: Magnesium Oxide 400 MG TAB PO SCH ×2 (08:35→19:46)
[2017-12-17] MEDS: Enoxaparin Sodium 40 MG/0.4 ML SYRINGE SC SCH (08:35)
[2017-12-17] MEDS: Docusate 100 MG CAP PO SCH ×2 (08:36→19:46)
[2017-12-17] MEDS: Carvedilol 6.25 MG TAB PO SCH ×2 (08:36→19:46)
[2017-12-17] MEDS: Furosemide 40 MG TAB PO SCH (08:36)
[2017-12-17] MEDS: metFORMIN 500 MG TAB PO SCH ×2 (08:36→17:24)
[2017-12-17] MEDS: Aspirin 325 MG TAB PO SCH (08:36)
[2017-12-17] MEDS: levETIRAcetam 500 mg/5 ml Oral Solution PO SCH ×2 (08:37→19:48)
[2017-12-17] MEDS: Valproate Sodium 250 mg/5 ml UD Cup PO SCH ×2 (08:37→19:48)
[2017-12-17] MEDS ORDERED: Prevnar 13-Val Conj/PF 0.5 ML SYRINGE IM ONE (09:00)
--- NOTE | 2017-12-17 13:56 | PDOC.PN ---
- Subjective Encounter Start Date: 12/17/17 Encounter Start Time: 13:55 -: old records requested/rev Pt seen and examined, chart reviewed in its entirety, this is my first visit with this patient. follow up for infeted ulcer to right leg with cellulitis, hx DM2, afib with RVR. pt is DNR no F/C, no N/V/d/C, no CP or sOB, no acute events overnight. all systems reviewed and neg x as per HPI - Objective Resuscitation Status: Resuscitation Status DNR:Do Not Resuscitate MAR Reviewed: Yes Vital Signs & Weight: Vital Signs (12 hours) Temp Pulse Resp BP BP BP Pulse Ox 12/17/17 11:18 98.5 F 77 16 130/62 95 12/17/17 08:36 102/55 L 12/17/17 07:21 98.8 F 77 16 102/55 L 93 L 12/17/17 04:00 97.5 F L 92 18 119/60 Weight Admit Weight 155 lb 3.2 oz Weight 156 lb I&O: 12/16/17 12/17/17 12/18/17 06:59 06:59 06:59 Intake Total 1097 540 Balance 1097 540 Result Diagrams: 12/18/17 04:29 12/18/17 04:29 Additional Labs: Accuchecks 12/17/17 12/17/17 12/17/17 12:18 05:54 00:07 POC Glucose 146 H 170 H 112 H 12/16/17 12/16/17 21:07 17:27 POC Glucose 125 H 147 H Radiology Reviewed by me: Yes EKG Reviewed by me: Yes Phys Exam - Physical Examination Constitutional: NAD HEENT: PERRLA, moist MMs, sclera anicteric, oral pharynx no lesions Neck: no nodes, no JVD, supple, full ROM Respiratory: no wheezing, no rhonchi, clear to auscultation bilateral Cardiovascular: no significant murmur, no rub, irregular Gastrointestinal: soft, non-tender, no distention, positive bowel sounds Musculoskeletal: edema present Lymphatic: no nodes Skin: no rash, normal turgor, cap refill <2 seconds Dx/Plan (1) Infected pressure ulcer Code(s): L89.90 - PRESSURE ULCER OF UNSPECIFIED SITE, UNSPECIFIED STAGE; L08.9 - LOCAL INFECTION OF THE SKIN AND SUBCUTANEOUS TISSUE, UNSP Status: Acute Qualifiers: Pressure injury stage: stage 3 Qualified Code(s): L89.93 - Pressure ulcer of unspecified site, stage 3; L08.9 - Local infection of the skin and subcutaneous tissue, unspecified Comment: right leg, present on admit (2) Pressure ulcer, stage III, full thickness Code(s): L89.93 - PRESSURE ULCER OF UNSPECIFIED SITE, STAGE 3 Status: Chronic Qualifiers: Pressure injury location: ankle Laterality: right Qualified Code(s): L89.513 - Pressure ulcer of right ankle, stage 3 (3) DM2 (diabetes mellitus, type 2) Status: Chronic Qualifiers: Diabetes mellitus exterminator insulin use: without exterminator use Diabetes mellitus complication status: with circulatory complication Diabetes mellitus complication detail: with peripheral angiopathy with gangrene Qualified Code(s ): E11.52 - Type 2 diabetes mellitus with diabetic peripheral angiopathy with gangrene (4) Seizure disorder Code(s): G40.909 - EPILEPSY, UNSP, NOT INTRACTABLE, WITHOUT STATUS EPILEPTICUS Status: Chronic Comment: Has remained seizure free. keppra level normal (5) Atrial fibrillation Code(s): I48.91 - UNSPECIFIED ATRIAL FIBRILLATION Status: Chronic Comment: Rate controlled. Continue Coreg. (6) CKD (chronic kidney disease) stage 2, GFR 60-89 ml/min Code(s): N18.2 - CHRONIC KIDNEY DISEASE, STAGE 2 (MILD) Status: Chronic (7) Chronic diastolic heart failure Code(s): I50.32 - CHRONIC DIASTOLIC (CONGESTIVE) HEART FAILURE Status: Chronic Comment: Stable, not in acute exacerbation. (8) HTN (hypertension) Code(s): I10 - ESSENTIAL (PRIMARY) HYPERTENSION Status: Chronic Qualifiers: Hypertension type: essential hypertension Qualified Code(s): I10 - Essential (primary) hypertension Comment: Fairly well controlled. - Plan cont current plan of care, continue antibiotics, PT/OT * . continue wound care
[2017-12-17] MEDS: Pravastatin Sodium 20 MG TAB PO SCH (19:48)
[2017-12-18] MEDS: Diltiazem HCl 125 MG, Admixture Fee 1 EACH in Sodium Chloride 0.9% 100 ML IVPB SCH ×2 (00:13→19:13)
[2017-12-18] MEDS: Piperacillin/Tazobactam 3.375 GM in Sodium Chloride 0.9% 100 ML IVPB SCH ×5 (00:30→23:01)
[2017-12-18] MEDS: Vancomycin HCl 750 MG in Sodium Chloride 0.9% 250 ML 250 ML IVPB SCH ×2 (04:00→17:32)
[2017-12-18 05:42] LABS: #Eosinphils 0.1 thou/uL (0.0-0.7); #Monocytes 0.8 thou/uL (0.11-0.59); #Neutrophils 4.6 thou/uL (1.40-6.50); %Basophils 0.2 % (0.0-1.0); %Lymphocytes 26.6 % (21.0-51.0); %Monocytes 10.3 % (0.0-10.0); Hemoglobin 11.1 g/dL (12.0-16.0); Mean Corpuscular HGB CONC 32.7 g/dL (32.0-36.0); Mean Corpuscular Hemoglobin 30.8 pg (27.0-31.0); Mean Corpuscular Volume 94.3 fL (78.0-98.0); Platelet Count 408 thou/uL (130-400); RBC Distribution Width 13.8 % (11.5-14.5); Red Blood Cell (RBC) Count 3.59 mill/uL (4.20-5.40); White Blood Cell (WBC) Count 7.4 thou/uL (4.8-10.8)
[2017-12-18 05:59] LABS: Anion Gap 17 mmol/L (10-20); BUN (Urea Nitrogen) 24 mg/dL (9.8-20.1); Calc. Creatinine Clearance 77 mL/min (70-130); Calcium 8.6 mg/dL (7.8-10.44); Carbon Dioxide 24 mmol/L (23-31); Chloride 103 mmol/L (98-107); Estimated GFR-MDRD Greater than 90; Glucose 144 mg/dL (83-110); Magnesium 1.6 mg/dL (1.6-2.6); Sodium 140 mmol/L (136-145)
[2017-12-18] MEDS: Valproate Sodium 250 mg/5 ml UD Cup PO SCH ×2 (10:16→21:45)
[2017-12-18] MEDS: levETIRAcetam 500 mg/5 ml Oral Solution PO SCH ×2 (10:17→21:46)
[2017-12-18] MEDS: Carvedilol 6.25 MG TAB PO SCH ×2 (10:17→21:45)
[2017-12-18] MEDS: Aspirin 325 MG TAB PO SCH (10:17)
[2017-12-18] MEDS: Docusate 100 MG CAP PO SCH ×3 (10:17→21:45)
[2017-12-18] MEDS: Magnesium Oxide 400 MG TAB PO SCH ×2 (10:18→21:45)
[2017-12-18] MEDS: Furosemide 40 MG TAB PO SCH (10:18)
[2017-12-18] MEDS: metFORMIN 500 MG TAB PO SCH ×2 (10:18→17:37)
[2017-12-18] MEDS: Enoxaparin Sodium 40 MG/0.4 ML SYRINGE SC SCH (10:20)
[2017-12-18] MEDS: Famotidine 20 MG TAB PO SCH ×2 (10:20→21:45)
[2017-12-18] MEDS: Pravastatin Sodium 20 MG TAB PO SCH (21:45)
[2017-12-19] MEDS: Vancomycin HCl 750 MG in Sodium Chloride 0.9% 250 ML 250 ML IVPB SCH (03:40)
[2017-12-19] MEDS: Piperacillin/Tazobactam 3.375 GM in Sodium Chloride 0.9% 100 ML IVPB SCH ×2 (04:53→12:26)
[2017-12-19] MEDS: metFORMIN 500 MG TAB PO SCH ×2 (09:25→17:35)
[2017-12-19] MEDS: Furosemide 40 MG TAB PO SCH (09:26)
[2017-12-19] MEDS: Famotidine 20 MG TAB PO SCH ×2 (09:26→21:23)
[2017-12-19] MEDS: Magnesium Oxide 400 MG TAB PO SCH ×2 (09:27→21:22)
[2017-12-19] MEDS: Valproate Sodium 250 mg/5 ml UD Cup PO SCH ×2 (09:27→21:21)
[2017-12-19] MEDS: Aspirin 325 MG TAB PO SCH (09:27)
[2017-12-19] MEDS: levETIRAcetam 500 mg/5 ml Oral Solution PO SCH ×2 (09:27→21:22)
[2017-12-19] MEDS: Carvedilol 6.25 MG TAB PO SCH ×2 (09:27→21:22)
[2017-12-19] MEDS: Enoxaparin Sodium 40 MG/0.4 ML SYRINGE SC SCH (09:28)
[2017-12-19] MEDS: Docusate 100 MG CAP PO SCH ×2 (09:30→21:23)
[2017-12-19] MEDS ORDERED: Cefdinir 125 MG/5 ML Oral Suspension PER TUBE SCH (21:00)
[2017-12-19] MEDS: Diltiazem HCl 125 MG, Admixture Fee 1 EACH in Sodium Chloride 0.9% 100 ML IVPB SCH (21:21)
[2017-12-19] MEDS: Cefdinir 125 MG/5 ML Oral Suspension PO SCH (21:22)
[2017-12-19] MEDS: Pravastatin Sodium 20 MG TAB PO SCH (21:23)
[2017-12-20] MEDS: Aspirin 325 MG TAB PO SCH (09:30)
[2017-12-20] MEDS: Famotidine 20 MG TAB PO SCH ×2 (09:30→22:13)
[2017-12-20] MEDS: metFORMIN 500 MG TAB PO SCH ×2 (09:30→17:14)
[2017-12-20] MEDS: Furosemide 40 MG TAB PO SCH (09:31)
[2017-12-20] MEDS: Carvedilol 6.25 MG TAB PO SCH ×2 (09:31→22:13)
[2017-12-20] MEDS: Valproate Sodium 250 mg/5 ml UD Cup PO SCH ×2 (09:32→22:14)
[2017-12-20] MEDS: levETIRAcetam 500 mg/5 ml Oral Solution PO SCH ×2 (09:32→22:14)
[2017-12-20] MEDS: Magnesium Oxide 400 MG TAB PO SCH ×2 (09:32→22:14)
[2017-12-20] MEDS: Docusate 100 MG CAP PO SCH ×2 (09:33→20:30)
[2017-12-20] MEDS: Enoxaparin Sodium 40 MG/0.4 ML SYRINGE SC SCH (09:33)
[2017-12-20] MEDS: Cefdinir 125 MG/5 ML Oral Suspension PO SCH ×2 (09:34→22:13)
[2017-12-20] MEDS: Pravastatin Sodium 20 MG TAB PO SCH (22:14)
[2017-12-21] MEDS: Diltiazem HCl 125 MG, Admixture Fee 1 EACH in Sodium Chloride 0.9% 100 ML IVPB SCH (05:10)
[2017-12-21] MEDS: Enoxaparin Sodium 40 MG/0.4 ML SYRINGE SC SCH (09:33)
[2017-12-21] MEDS: metFORMIN 500 MG TAB PO SCH (09:34)
[2017-12-21] MEDS: Furosemide 40 MG TAB PO SCH (09:34)
[2017-12-21] MEDS: Aspirin 325 MG TAB PO SCH (09:34)
[2017-12-21] MEDS: Docusate 100 MG CAP PO SCH (09:34)
[2017-12-21] MEDS: Famotidine 20 MG TAB PO SCH (09:34)
[2017-12-21] MEDS: Magnesium Oxide 400 MG TAB PO SCH (09:34)
[2017-12-21] MEDS: Carvedilol 6.25 MG TAB PO SCH (09:35)
[2017-12-21] MEDS: levETIRAcetam 500 mg/5 ml Oral Solution PO SCH (09:35)
[2017-12-21] MEDS: Cefdinir 125 MG/5 ML Oral Suspension PO SCH (09:35)
[2017-12-21] MEDS: Valproate Sodium 250 mg/5 ml UD Cup PO SCH (09:36)
--- NOTE | 2017-12-21 11:46 | PDOC.PN ---
- Subjective Encounter Start Date: 12/18/17 Encounter Start Time: 09:30 -: non-verbal follow up for wound infection, afib with RVR restarted on cardizem, afebrile. no surgery note pt nonverbal no f/c, no N/V/D/C, no acute overnight events otherwise - Objective Resuscitation Status: Resuscitation Status DNR:Do Not Resuscitate MAR Reviewed: Yes Vital Signs & Weight: Vital Signs (12 hours) Temp Pulse Resp BP BP Pulse Ox 12/21/17 09:35 123/60 12/21/17 07:29 99.0 F 91 17 135/71 100 12/21/17 03:02 100.0 F H 87 16 112/60 93 L Weight Admit Weight 155 lb 3.2 oz Weight 158 lb 8 oz I&O: 12/20/17 12/21/17 12/22/17 06:59 06:59 06:59 Intake Total 981 477 Balance 981 477 Result Diagrams: 12/18/17 04:29 12/18/17 04:29 Additional Labs: Accuchecks 12/21/17 12/20/17 12/20/17 06:08 22:21 18:06 POC Glucose 177 H 88 129 H EKG Reviewed by me: Yes Phys Exam - Physical Examination Constitutional: NAD HEENT: PERRLA, moist MMs, sclera anicteric, oral pharynx no lesions Neck: no nodes, no JVD, supple, full ROM Respiratory: no wheezing, no rales, no rhonchi, clear to auscultation bilateral Cardiovascular: no significant murmur, irregular Gastrointestinal: soft, non-tender, no distention, positive bowel sounds Musculoskeletal: edema present Lymphatic: no nodes Skin: no rash, normal turgor, cap refill <2 seconds Deviation from normal: right leg dressing intact, just changed, not removed Dx/Plan (1) Infected pressure ulcer Code(s): L89.90 - PRESSURE ULCER OF UNSPECIFIED SITE, UNSPECIFIED STAGE; L08.9 - LOCAL INFECTION OF THE SKIN AND SUBCUTANEOUS TISSUE, UNSP Status: Acute Qualifiers: Pressure injury stage: stage 3 Qualified Code(s): L89.93 - Pressure ulcer of unspecified site, stage 3; L08.9 - Local infection of the skin and subcutaneous tissue, unspecified Comment: right leg, present on admit, ccm with abx, follow up cx (2) Pressure ulcer, stage III, full thickness Code(s): L89.93 - PRESSURE ULCER OF UNSPECIFIED SITE, STAGE 3 Status: Chronic Qualifiers: Pressure injury location: ankle Laterality: right Qualified Code(s): L89.513 - Pressure ulcer of right ankle, stage 3 (3) DM2 (diabetes mellitus, type 2) Status: Chronic Qualifiers: Diabetes mellitus care home insulin use: without intermodal customer service use Diabetes mellitus complication status: with circulatory complication Diabetes mellitus complication detail: with peripheral angiopathy with gangrene Qualified Code(s ): E11.52 - Type 2 diabetes mellitus with diabetic peripheral angiopathy with gangrene (4) Seizure disorder Code(s): G40.909 - EPILEPSY, UNSP, NOT INTRACTABLE, WITHOUT STATUS EPILEPTICUS Status: Chronic Comment: Has remained seizure free. keppra level normal (5) Atrial fibrillation Code(s): I48.91 - UNSPECIFIED ATRIAL FIBRILLATION Status: Chronic Comment: Rate controlled. Continue Coreg. (6) CKD (chronic kidney disease) stage 2, GFR 60-89 ml/min Code(s): N18.2 - CHRONIC KIDNEY DISEASE, STAGE 2 (MILD) Status: Chronic (7) Chronic diastolic heart failure Code(s): I50.32 - CHRONIC DIASTOLIC (CONGESTIVE) HEART FAILURE Status: Chronic Comment: Stable, not in acute exacerbation. (8) HTN (hypertension) Code(s): I10 - ESSENTIAL (PRIMARY) HYPERTENSION Status: Chronic Qualifiers: Hypertension type: essential hypertension Qualified Code(s): I10 - Essential (primary) hypertension Comment: Fairly well controlled. - Plan * .
--- NOTE | 2017-12-21 11:48 | PDOC.PN ---
- Subjective Encounter Start Date: 12/19/17 Encounter Start Time: 11:30 follow up for afib with RVR, right lower extremity ulcer, infected afebrile, nazia abx, no f/C, no N/V/D/C, no acute events nonverbal, ROS not obtainable - Objective Resuscitation Status: Resuscitation Status DNR:Do Not Resuscitate MAR Reviewed: Yes Vital Signs & Weight: Vital Signs (12 hours) Temp Pulse Resp BP BP Pulse Ox 12/21/17 09:35 123/60 12/21/17 07:29 99.0 F 91 17 135/71 100 12/21/17 03:02 100.0 F H 87 16 112/60 93 L Weight Admit Weight 155 lb 3.2 oz Weight 158 lb 8 oz I&O: 12/20/17 12/21/17 12/22/17 06:59 06:59 06:59 Intake Total 981 477 Balance 981 477 Result Diagrams: 12/18/17 04:29 12/18/17 04:29 Additional Labs: Accuchecks 12/21/17 12/20/17 12/20/17 06:08 22:21 18:06 POC Glucose 177 H 88 129 H Phys Exam - Physical Examination Constitutional: NAD HEENT: PERRLA, moist MMs, sclera anicteric, oral pharynx no lesions Neck: no nodes, no JVD, supple, full ROM Respiratory: no wheezing, clear to auscultation bilateral Cardiovascular: no significant murmur, irregular Gastrointestinal: soft, non-tender, no distention, positive bowel sounds Musculoskeletal: edema present Lymphatic: no nodes Skin: no rash, normal turgor, cap refill <2 seconds Deviation from normal: wound cleaned based, granulating, tender, no necrotic material Dx/Plan (1) Infected pressure ulcer Code(s): L89.90 - PRESSURE ULCER OF UNSPECIFIED SITE, UNSPECIFIED STAGE; L08.9 - LOCAL INFECTION OF THE SKIN AND SUBCUTANEOUS TISSUE, UNSP Status: Acute Qualifiers: Pressure injury stage: stage 3 Qualified Code(s): L89.93 - Pressure ulcer of unspecified site, stage 3; L08.9 - Local infection of the skin and subcutaneous tissue, unspecified Comment: right leg, present on admit, ccm with abx, e coli, transition to po omnicef per PEG (2) Pressure ulcer, stage III, full thickness Code(s): L89.93 - PRESSURE ULCER OF UNSPECIFIED SITE, STAGE 3 Status: Chronic Qualifiers: Pressure injury location: ankle Laterality: right Qualified Code(s): L89.513 - Pressure ulcer of right ankle, stage 3 (3) DM2 (diabetes mellitus, type 2) Status: Chronic Qualifiers: Diabetes mellitus supervisor intermediates insulin use: without halfway use Diabetes mellitus complication status: with circulatory complication Diabetes mellitus complication detail: with peripheral angiopathy with gangrene Qualified Code(s ): E11.52 - Type 2 diabetes mellitus with diabetic peripheral angiopathy with gangrene (4) Seizure disorder Code(s): G40.909 - EPILEPSY, UNSP, NOT INTRACTABLE, WITHOUT STATUS EPILEPTICUS Status: Chronic Comment: Has remained seizure free. keppra level normal (5) Atrial fibrillation Code(s): I48.91 - UNSPECIFIED ATRIAL FIBRILLATION Status: Chronic Comment: Rate controlled. Continue Coreg. (6) CKD (chronic kidney disease) stage 2, GFR 60-89 ml/min Code(s): N18.2 - CHRONIC KIDNEY DISEASE, STAGE 2 (MILD) Status: Chronic (7) Chronic diastolic heart failure Code(s): I50.32 - CHRONIC DIASTOLIC (CONGESTIVE) HEART FAILURE Status: Chronic Comment: Stable, not in acute exacerbation. (8) HTN (hypertension) Code(s): I10 - ESSENTIAL (PRIMARY) HYPERTENSION Status: Chronic Qualifiers: Hypertension type: essential hypertension Qualified Code(s): I10 - Essential (primary) hypertension Comment: Fairly well controlled. - Plan * .
--- NOTE | 2017-12-21 11:51 | PDOC.PN ---
- Subjective Encounter Start Date: 12/20/17 Encounter Start Time: 12:45 -: non-verbal follow up for afib with RVR, right lower extremity ulcer, infected afebrile, nazia abx, no f/C, no N/V/D/C, no acute events, no changes nonverbal, ROS not obtainable - Objective Resuscitation Status: Resuscitation Status DNR:Do Not Resuscitate MAR Reviewed: Yes Vital Signs & Weight: Vital Signs (12 hours) Temp Pulse Resp BP BP Pulse Ox 12/21/17 09:35 123/60 12/21/17 07:29 99.0 F 91 17 135/71 100 12/21/17 03:02 100.0 F H 87 16 112/60 93 L Weight Admit Weight 155 lb 3.2 oz Weight 158 lb 8 oz I&O: 12/20/17 12/21/17 12/22/17 06:59 06:59 06:59 Intake Total 981 477 Balance 981 477 Result Diagrams: 12/18/17 04:29 12/18/17 04:29 Additional Labs: Accuchecks 12/21/17 12/20/17 12/20/17 06:08 22:21 18:06 POC Glucose 177 H 88 129 H EKG Reviewed by me: Yes Phys Exam - Physical Examination Constitutional: NAD HEENT: PERRLA, moist MMs, sclera anicteric, oral pharynx no lesions Neck: no nodes, no JVD, supple, full ROM Respiratory: no wheezing, no rhonchi, clear to auscultation bilateral Cardiovascular: no significant murmur, no rub, irregular Gastrointestinal: soft, non-tender, no distention, positive bowel sounds Musculoskeletal: edema present Lymphatic: no nodes Skin: no rash, normal turgor, cap refill <2 seconds Deviation from normal: wound stable Dx/Plan (1) Infected pressure ulcer Code(s): L89.90 - PRESSURE ULCER OF UNSPECIFIED SITE, UNSPECIFIED STAGE; L08.9 - LOCAL INFECTION OF THE SKIN AND SUBCUTANEOUS TISSUE, UNSP Status: Acute Qualifiers: Pressure injury stage: stage 3 Qualified Code(s): L89.93 - Pressure ulcer of unspecified site, stage 3; L08.9 - Local infection of the skin and subcutaneous tissue, unspecified Comment: right leg, present on admit, ccm with abx, e coli, transition to po omnicef per PEG (2) Pressure ulcer, stage III, full thickness Code(s): L89.93 - PRESSURE ULCER OF UNSPECIFIED SITE, STAGE 3 Status: Chronic Qualifiers: Pressure injury location: ankle Laterality: right Qualified Code(s): L89.513 - Pressure ulcer of right ankle, stage 3 (3) DM2 (diabetes mellitus, type 2) Status: Chronic Qualifiers: Diabetes mellitus termite exterminator insulin use: without termite exterminator use Diabetes mellitus complication status: with circulatory complication Diabetes mellitus complication detail: with peripheral angiopathy with gangrene Qualified Code(s ): E11.52 - Type 2 diabetes mellitus with diabetic peripheral angiopathy with gangrene (4) Seizure disorder Code(s): G40.909 - EPILEPSY, UNSP, NOT INTRACTABLE, WITHOUT STATUS EPILEPTICUS Status: Chronic Comment: Has remained seizure free. keppra level normal (5) Atrial fibrillation Code(s): I48.91 - UNSPECIFIED ATRIAL FIBRILLATION Status: Chronic Comment: Rate controlled. Continue Coreg. stop cardizem gtt in AM and go to po (6) CKD (chronic kidney disease) stage 2, GFR 60-89 ml/min Code(s): N18.2 - CHRONIC KIDNEY DISEASE, STAGE 2 (MILD) Status: Chronic (7) Chronic diastolic heart failure Code(s): I50.32 - CHRONIC DIASTOLIC (CONGESTIVE) HEART FAILURE Status: Chronic Comment: Stable, not in acute exacerbation. (8) HTN (hypertension) Code(s): I10 - ESSENTIAL (PRIMARY) HYPERTENSION Status: Chronic Qualifiers: Hypertension type: essential hypertension Qualified Code(s): I10 - Essential (primary) hypertension Comment: Fairly well controlled. - Plan * .
[2017-12-21 16:26] VITALS: BP 162/85; TEMP 99.3
--- NOTE | 2017-12-22 13:21 | EKG ---
Test Reason : Blood Pressure : / mmHG Vent. Rate : 084 BPM Atrial Rate : 375 BPM P-R Int : 000 ms QRS Dur : 088 ms QT Int : 370 ms P-R-T Axes : 000 -13 050 degrees QTc Int : 437 ms Atrial fibrillation with a competing junctional pacemaker Possible Anterior infarct , age undetermined Abnormal ECG Confirmed by KATHERINE CENTENO ([id number]), editor magazine JULIÁN LYNN ([id number]) on 12/22/2017 1:21:04 PM Referred By: Confirmed By:KATHERINE CENTENO
== END 2017-12-21 17:13 | DRG 308 ==
LOC: ERS 13:24 → 2NO 17:10
PROVIDERS: ADMIT Internal Medicine; ATTEND Internal Medicine
DX: I48.91 Unspecified atrial fibrillation (principal); L89.614 Pressure ulcer of right heel, stage 4; I50.32 Chronic diastolic (congestive) heart failure; I13.0 Hypertensive heart and chronic kidney disease with heart failure and stage 1 through stage 4 chronic kidney disease, or unspecified chronic kidney disease; R60.1 Generalized edema; I69.328 Other speech and language deficits following cerebral infarction; G40.909 Epilepsy, unspecified, not intractable, without status epilepticus; E03.9 Hypothyroidism, unspecified; Z79.899 Other long term (current) drug therapy; Z79.82 Long term (current) use of aspirin; Z79.2 Long term (current) use of antibiotics; Z79.84 Long term (current) use of oral hypoglycemic drugs; N18.2 Chronic kidney disease, stage 2 (mild); E11.22 Type 2 diabetes mellitus with diabetic chronic kidney disease
CPT/HCPCS: 36415; 36416; 51701; 71045; 80048; 80053; 80177; 80202; 81003; 81015; 82553; 83605; 83735; 83880; 84484; 85025; 87040; 87070; 87077; 87086; 87186; 87205; 93005; 96365; 96372; 96375; A4353; J1650; J2543; J3370; J7050

== ENCOUNTER 2017-12-22 15:11 | Inpatient (IN) | payer MEDICARE, MEDICAID ==
[2017-12-22] MEDS ORDERED: Diltiazem 125 MG/25 ML ONE ×2 (15:53→15:55)
[2017-12-22 16:08] LABS: Bilirubin Negative (Negative); Blood, Urine Small (Negative); Clarity TURBID (Clear); Glucose, Urine (Dipstick) Negative (Negative); Leukocyte Large (Negative); Nitrite Negative (Negative); Protein, Urine (Dipstick) 30 mg/dL (Neg-Trace); Specific Gravity, Urine 1.024 (1.002-1.036); Urobilinogen 0.2 mg/dL (0.2-1.0); pH, Urine 6.5 (5.0-9.0)
[2017-12-22 16:09] LABS: #Eosinphils 0.1 thou/uL (0.0-0.7); #Lymphocytes 2.5 thou/uL (1.20-3.40); #Monocytes 0.8 thou/uL (0.11-0.59); #Neutrophils 5.9 thou/uL (1.40-6.50); %Basophils 0.4 % (0.0-1.0); %Eosinophils 0.8 % (0.0-10.0); %Lymphocytes 26.8 % (21.0-51.0); Hemoglobin 13.2 g/dL (12.0-16.0); Mean Corpuscular HGB CONC 31.5 g/dL (32.0-36.0); Mean Corpuscular Hemoglobin 29.7 pg (27.0-31.0); Mean Corpuscular Volume 94.4 fL (78.0-98.0); Mean Platelet Volume 7.7 fL (7.4-10.4); Platelet Count 479 thou/uL (130-400); RBC Distribution Width 14.4 % (11.5-14.5); Red Blood Cell (RBC) Count 4.43 mill/uL (4.20-5.40); White Blood Cell (WBC) Count 9.4 thou/uL (4.8-10.8)
[2017-12-22 16:12] LABS: Bacteria/HPF None Seen HPF (None Seen); Yeast-AUWi Flag 20.6 (0-25.0)
[2017-12-22 16:16] LABS: Pathc Cast-AUWi Flag 8.57 (0-2.49)
[2017-12-22 16:26] LABS: Hyaline Casts/LPF 0-3 HYALINE CAST LPF (0-3 Hyaline); Other Casts/LPF None Seen LPF (0-3 Hyaline); Transitional Epithelial 0-3 HPF (0-3)
[2017-12-22 16:30] LABS: ALT (SGPT) 54 U/L (8-55); AST (SGOT) 18 U/L (5-34); Albumin 2.9 g/dL (3.4-4.8); Alkaline Phosphatase 162 U/L (40-150); Anion Gap 16 mmol/L (10-20); BUN (Urea Nitrogen) 25 mg/dL (9.8-20.1); Bilirubin, Total 0.2 mg/dL (0.2-1.2); Calc. Creatinine Clearance 0 mL/min (70-130); Calcium 9.3 mg/dL (7.8-10.44); Carbon Dioxide 25 mmol/L (23-31); Chloride 102 mmol/L (98-107); Estimated GFR-MDRD Greater than 90; Globulin 4.3 g/dL (2.4-3.5); Glucose 141 mg/dL (83-110); Potassium 4.1 mmol/L (3.5-5.1); Protein, Total 7.2 g/dL (6.0-8.3); Sodium 139 mmol/L (136-145)
--- NOTE | 2017-12-22 16:31 | CT ---
CT OF BRAIN PERFORMED WITHOUT CONTRAST ENHANCEMENT: 12/22/17 HISTORY: Altered mental status. COMPARISON: 08/22/17 exam. There is marked generalized ventricular and sulcal prominence with decreased attenuation of the periv entricular white matter. Old left occipital infarct is again noted. No hemorrhage or mass effect. Mas toid air cells and visualized sinuses are clear. IMPRESSION: No acute intracranial abnormalities. Stable exam. POS: [facility]
[2017-12-22 16:33] LABS: CKMB 3.4 ng/mL (0-6.6); Troponin I Less than 0.010 ng/mL (< 0.028)
--- NOTE | 2017-12-22 16:45 | RAD ---
PORTABLE CHEST: 12/22/17 HISTORY: Irregular heart rate. COMPARISON: 12/16/17 study. Heart size is enlarged. Aorta is tortuous. The lungs are clear of infiltrates. No signs of failure. IMPRESSION: Cardiomegaly. POS: [facility]
--- NOTE | 2017-12-22 16:47 | RAD ---
RIGHT TIBIA AND FIBULA TWO VIEWS: 12/22/17 HISTORY: Evaluation for osteomyelitis. Fairly extensive vascular calcifications noted. The bones appear slightly demineralized. No plain margarito m evidence for osteomyelitis. IMPRESSION: No evidence for osteomyelitis. POS: [facility]
[2017-12-22] MEDS ORDERED: cefTRIAXone\\ROCEPHIN 2 GM VIAL ONE (17:07)
[2017-12-22] MEDS ORDERED: Acetaminophen 325 MG TAB PO PRN ×2 (19:02→20:02)
[2017-12-22 19:50] LABS: Troponin I Less than 0.010 ng/mL (< 0.028)
[2017-12-22] MEDS ORDERED: Dextrose 5% in Water 1,000 ML IV PRN (20:02)
[2017-12-22] MEDS ORDERED: HumaLOG 300 UNITS/3 ML VIAL SC PRN (20:02)
[2017-12-22] MEDS ORDERED: Dextrose 50% Abboject 50 ML SYRINGE SLOW IVP PRN (20:02)
[2017-12-22] MEDS ORDERED: hydrALAZINE 20 MG/ML VIAL SLOW IVP PRN (20:02)
[2017-12-22 20:03] LABS: Lactic Acid 2.6 mmol/L (0.5-2.2)
[2017-12-22] MEDS ORDERED: Diltiazem 125 MG in Sodium Chloride 0.9% 100 ML IVPB SCH (20:15)
--- NOTE | 2017-12-22 20:53 | HP ---
PRIMARY CARE PHYSICIAN: Ania Kidd. CHIEF COMPLAINT: Atrial fibrillation with rapid ventricular response. HISTORY OF PRESENT ILLNESS: The history of present illness is taken from the patient's son over the phone as well as discussion with the patient's emergency room physician. The patient has had a previ ous stroke which has left her essentially nonverbal and there is no additional family besides a nephe w that is at the bedside. The patient resides at a nursing facility and had just recently been disch arged yesterday for atrial fibrillation with rapid ventricular response. According to the nursing [facility] records, they were concerned for edema and the patient's son says that they noticed that her breat delfino appeared shallow and for this reason, they sent her to the emergency room. In the ER, she was f ound to be in atrial fibrillation with a heart rate in the 120s and she is being admitted for further evaluation. Currently, the patient is lying in the bed. Her eyes are closed tight. She appears to be comfortable and unfortunately I am unable to get any additional history. REVIEW OF SYSTEMS: This is unobtainable as the patient is essentially nonverbal or aphasic from a pr evious stroke. PAST MEDICAL HISTORY: Taken from review of previous records and includes atrial fibrillation, cerebr ovascular accident with left-sided hemiparesis, aphasia and dysphagia, seizure disorder, hypertension , hypothyroidism, diastolic dysfunction, diabetes mellitus, and history of decubitus ulcers. PAST SURGICAL HISTORY: She has had left hip surgery. ALLERGIES: No known drug allergies. SOCIAL HISTORY: She is a nonsmoker and nondrinker. There is no drug use. CODE STATUS: FULL CODE and this is according to her son. They want aggressive care. FAMILY HISTORY: Unknown. MEDICATIONS: Taken from the detention records and includes diltiazem 30 mg q.a.c. and at bedtime, Omnicef, Keppra 500 mg twice daily, sertraline 50 mg daily, metformin 500 mg twice a day, carvedilol 3.125 mg twice a day, Seroquel 50 mg twice daily, valproic acid 1000 mg twice a day and gabapentin 2 00 mg 3 times a day. PHYSICAL EXAMINATION: GENERAL APPEARANCE: I am unable to assess orientation, but she appears to be oriented to person only . She is well-developed and well-nourished. She does not appear to be in any distress. VITAL SIGNS: Blood pressure was 144/81, heart rate 121, respiratory rate is 16 and temperature is 98 .4. HEENT: Pupils are equal, round, and reactive. Extraocular muscles are intact. Her sclerae are anic teric. Throat: There is no erythema. She has got dry mucous membranes. There are no oral lesions. NECK: There is no adenopathy, no bruits. LUNGS: Clear to auscultation. I did not appreciate any wheezing or rales. CARDIOVASCULAR: Heart rate is irregular. The rate is rapid and tachycardic. She did not have any m urmurs, no clicks, no rubs. ABDOMEN: Obese, it is soft. They are positive for bowel sounds. There is no organomegaly. EXTREMITIES: She has got a decubitus ulcer which is wrapped on the right lower extremity. In the le ft lower extremity, there was just trace edema, palpable dorsalis pedis pulses. There is no calf or muscle tenderness. SKIN/INTEGUMENT: I did not notice any rashes or any other skin lesions. NEUROLOGIC: She has got left-sided hemiparesis and a left facial droop. IMAGING DATA: Chest x-ray by my reading, she has got evidence of some cardiomegaly. There is no inf iltrates or effusions. CT scan of the brain was negative for any acute intracranial process. EKG by my reading shows atrial fibrillation with a heart rate of 121. LABORATORY DATA: White blood cell count 9.4, hemoglobin 13.2, hematocrit is 41.8, platelet count is 479. Sodium 139, potassium 4.1, chloride is 102, CO2 is 25, BUN of 25, creatinine 0.63, glucose is 1 41, lactic acid is 3.6, alkaline phosphatase is 1.62, albumin is 2.9. TSH was 2.5. Urinalysis shows too numerous to count WBCs, but there is no bacteria. ASSESSMENT AND PLAN: This is an 82-year-old female that presents to the ER in atrial fibrillation wi th rapid ventricular response. She was recently admitted for a similar episode. She had been placed on Cardizem for rate control; however, her heart rate has continued to be rapid. We will continue C ardizem drip as needed. This was started in the ER. We will consult Cardiology to catalytic converter operator helper in her m edications. We will hold off on any anticoagulation until we can get recommendations from Cardiology . 1. Urinary tract infection. We will continue empiric antibiotics since her lactic acid was elevated ; however, it appears as if she could have asymptomatic bacteriuria. The lactic acid could be elevat ed due to the atrial fibrillation. If her urine cultures are negative, then we will likely discontin ue antibiotics. 2. History of cerebrovascular accident. We will need to reconcile and restart her usual home medica tions. 3. Diabetes mellitus. Again, restart her usual home medications and I will place her on a sliding s jaylin insulin. 4. For hypertension, again start her home medications and place her on p.r.n. medications for elevat ed blood pressure.
[2017-12-22] MEDS: levETIRAcetam 500 mg/5 ml Oral Solution PER TUBE SCH (21:53)
[2017-12-22] MEDS: Gabapentin 100 MG CAP PO SCH (21:54)
[2017-12-22] MEDS: Amlodipine 5 MG TAB PER TUBE SCH (21:55)
[2017-12-22] MEDS: Pravastatin Sodium 20 MG TAB PER TUBE SCH (21:55)
[2017-12-22] MEDS: Carvedilol 3.125 MG TAB PER TUBE SCH (21:55)
[2017-12-22] MEDS: Valproate Sodium 250 mg/5 ml UD Cup PER TUBE SCH (21:58)
[2017-12-22 22:44] LABS: Troponin I Less than 0.010 ng/mL (< 0.028)
[2017-12-23 05:10] LABS: #Eosinphils 0.1 thou/uL (0.0-0.7); #Lymphocytes 2.5 thou/uL (1.20-3.40); #Monocytes 1.2 thou/uL (0.11-0.59); %Basophils 0.2 % (0.0-1.0); %Eosinophils 0.8 % (0.0-10.0); %Lymphocytes 28.1 % (21.0-51.0); %Monocytes 13.9 % (0.0-10.0); Hemoglobin 10.9 g/dL (12.0-16.0); Mean Corpuscular HGB CONC 32.1 g/dL (32.0-36.0); Mean Corpuscular Hemoglobin 30.1 pg (27.0-31.0); Mean Corpuscular Volume 93.8 fL (78.0-98.0); Mean Platelet Volume 7.9 fL (7.4-10.4); Platelet Count 361 thou/uL (130-400); RBC Distribution Width 14.2 % (11.5-14.5); Red Blood Cell (RBC) Count 3.61 mill/uL (4.20-5.40); White Blood Cell (WBC) Count 8.7 thou/uL (4.8-10.8)
[2017-12-23 05:21] LABS: Anion Gap 12 mmol/L (10-20); BUN (Urea Nitrogen) 23 mg/dL (9.8-20.1); Calc. Creatinine Clearance 83 mL/min (70-130); Calcium 9.1 mg/dL (7.8-10.44); Carbon Dioxide 28 mmol/L (23-31); Chloride 104 mmol/L (98-107); Estimated GFR-MDRD Greater than 90; Glucose 104 mg/dL (83-110); Potassium 4.1 mmol/L (3.5-5.1); Sodium 140 mmol/L (136-145)
[2017-12-23] MEDS ORDERED: Enoxaparin Sodium 40 MG/0.4 ML SYRINGE SC SCH (09:00)
[2017-12-23] MEDS ORDERED: Prevnar 13-Val Conj/PF 0.5 ML SYRINGE IM ONE (09:00)
[2017-12-23] MEDS: Gabapentin 100 MG CAP PO SCH ×3 (09:48→21:14)
[2017-12-23] MEDS: Carvedilol 3.125 MG TAB PER TUBE SCH ×2 (09:49→21:16)
[2017-12-23] MEDS: Amlodipine 5 MG TAB PER TUBE SCH ×2 (09:49→21:14)
--- NOTE | 2017-12-23 11:43 | CON ---
DATE OF CONSULTATION: 12/23/2017 REASON FOR CONSULTATION: Atrial fibrillation with rapid ventricular response. HISTORY OF PRESENT ILLNESS: Ms. Mcmillan is an 82-year-old woman who has been seen and evaluated in t he past by Dr. Yannick Real. She recently resides in a care home. She has a history of CVA in a ddition to atrial fibrillation. She was found to have atrial fibrillation with RVR and proceeded to the emergency room. History is obtained from her daughter. The patient is currently nonverbal. Her heart rate appears t o be better controlled on IV Cardizem. PAST MEDICAL HISTORY: CVA, atrial fibrillation, aphasia, dysphagia, hypertension, hypothyroidism, se izure disorder, diabetes mellitus, previous decubitus ulcers, left hip surgery. ALLERGIES: None. SOCIAL HISTORY: No current tobacco or alcohol use. HOME MEDICATIONS: Include Omnicef, Keppra, sertraline, metformin, valproic acid, carvedilol, gabapen tin. REVIEW OF SYSTEMS: Unable to obtain. PHYSICAL EXAMINATION: GENERAL: She is not oriented to time, person or place. She is nonverbal. VITAL SIGNS: Blood pressure 135/60, pulse 60, temperature 99.8. NEUROLOGIC: The patient is alert and oriented times 3 with no focal neurologic deficits. HEENT: Sclerae without icterus. Mouth has moist mucous membranes with normal pallor. NECK: No JVD. Carotid upstroke brisk. No bruits bilaterally. LUNGS: Clear to auscultation with unlabored respirations. BACK: No scoliosis or kyphosis. CARDIAC: Irregular irregular with normal S1 and S2. No S3 or S4 noted. No significant rubs, murmur s, thrills, or gallops noted throughout the precordium. PMI is not displaced. There is no parastern al heave. ABDOMEN: Soft, nontender, nondistended. No peritoneal signs present. No hepatosplenomegaly. No ab normal striae. EXTREMITIES: 2+ femoral and 2+ dorsalis pedis pulses. No cyanosis, clubbing, or edema. SKIN: No gross abnormalities. PERTINENT LABORATORY DATA: Hemoglobin 10.9, creatinine 0.56. IMPRESSION: 1. Atrial fibrillation with rapid ventricular response. 2. Cerebrovascular accident. 3. Aphasia. RECOMMENDATIONS: At this point, continue IV Cardizem. She has been supplemented with p.o. Cardizem at 30 mg q.i.d. We will increase it to 60 q.i.d. We have not able to get better rate control. She currently has a feeding tube and cannot use long-acting medications. It does not appear she is on an ticoagulation therapy at home and I am unsure of the reason. She is currently receiving Lovenox. I will increase her Lovenox to b.i.d. dosing to cover for stroke prophylaxis. Further recommendations per Dr. Yannick Real in a.m.
[2017-12-23] MEDS: Valproate Sodium 250 mg/5 ml UD Cup PER TUBE SCH ×2 (11:55→21:11)
[2017-12-23] MEDS: levETIRAcetam 500 mg/5 ml Oral Solution PER TUBE SCH ×2 (11:55→21:11)
--- NOTE | 2017-12-23 13:02 | PDOC.PN ---
- Subjective Encounter Start Date: 12/23/17 Encounter Start Time: 12:58 Ms. Mcmillan was seen today in follow-up of AFIB with RVR. She is non-verbal, and unable to communicate her concerns. She appears comfortable. - Objective Resuscitation Status: Resuscitation Status FULL:Full Resuscitation MAR Reviewed: Yes Vital Signs & Weight: Vital Signs (12 hours) Temp Pulse Resp BP Pulse Ox 12/23/17 11:25 97.9 F 84 18 114/69 94 L 12/23/17 09:49 68 12/23/17 08:25 96 12/23/17 03:05 99.8 F H 68 19 135/68 97 Weight Weight 147 lb 1 oz I&O: 12/22/17 12/23/17 12/24/17 06:59 06:59 06:59 Intake Total 769 30 Balance 769 30 Result Diagrams: 12/23/17 04:37 12/23/17 04:37 Additional Labs: Accuchecks 12/23/17 12/22/17 05:54 23:39 POC Glucose 116 H 189 H Phys Exam - Physical Examination HEENT: PERRLA Respiratory: no wheezing, no rales, no rhonchi, clear to auscultation bilateral Cardiovascular: no significant murmur, no rub, irregular Gastrointestinal: soft, non-tender, positive bowel sounds Musculoskeletal: edema present trace pedal edema Dx/Plan (1) Atrial fibrillation with RVR Code(s): I48.91 - UNSPECIFIED ATRIAL FIBRILLATION Status: Acute (2) CVA (cerebral vascular accident) Code(s): I63.9 - CEREBRAL INFARCTION, UNSPECIFIED Status: Chronic Qualifiers: CVA mechanism: unspecified Qualified Code(s): I63.9 - Cerebral infarction, unspecified Comment: Stable. Has a h/o Ischemic R frontal involvement with expressive dysphasia and dysarthria. Continue ASA 325mg po daily. (3) Chronic diastolic heart failure Code(s): I50.32 - CHRONIC DIASTOLIC (CONGESTIVE) HEART FAILURE Status: Chronic Comment: Stable, not in acute exacerbation. (4) DM2 (diabetes mellitus, type 2) Status: Chronic Qualifiers: Diabetes mellitus long term acute care registered nurse insulin use: without long term acute care registered nurse use Diabetes mellitus complication status: with circulatory complication Diabetes mellitus complication detail: with peripheral angiopathy with gangrene Qualified Code(s ): E11.52 - Type 2 diabetes mellitus with diabetic peripheral angiopathy with gangrene (5) HTN (hypertension) Code(s): I10 - ESSENTIAL (PRIMARY) HYPERTENSION Status: Chronic Qualifiers: Hypertension type: essential hypertension Qualified Code(s): I10 - Essential (primary) hypertension Comment: Fairly well controlled. - Plan * AFIB with RVR- agree with an increase in her dose of Cardizem orally if her blood pressure can tolerate- hopefully she can hen be taken off the Cardizem drip. Lovenox has been increased to full dose. Await further recommendations from Cardiology * CVA with aphasia, and dysphagia- stable- continue tube feeds for nutritional support * Chronic diastolic heart failure- compensated * HTN- blood pressure is controlled * DM- blood glucose is stable.
[2017-12-23] MEDS: HumaLOG 300 UNITS/3 ML VIAL SC PRN (15:29)
[2017-12-23] MEDS ORDERED: cefTRIAXone\\ROCEPHIN 1 GM in Sodium Chloride 0.9% 100 ML IVPB SCH (17:00)
[2017-12-23] MEDS: Enoxaparin Sodium 80 MG/0.8 ML SYRINGE SC SCH (21:13)
[2017-12-23] MEDS: Pravastatin Sodium 20 MG TAB PER TUBE SCH (21:16)
[2017-12-24] MEDS: Valproate Sodium 250 mg/5 ml UD Cup PER TUBE SCH ×2 (08:41→21:55)
[2017-12-24] MEDS: Enoxaparin Sodium 80 MG/0.8 ML SYRINGE SC SCH (08:42)
[2017-12-24] MEDS: Carvedilol 3.125 MG TAB PER TUBE SCH ×2 (08:42→21:56)
[2017-12-24] MEDS: levETIRAcetam 500 mg/5 ml Oral Solution PER TUBE SCH ×2 (08:42→21:55)
[2017-12-24] MEDS: Amlodipine 5 MG TAB PER TUBE SCH ×2 (08:42→21:56)
[2017-12-24] MEDS: Gabapentin 100 MG CAP PO SCH ×3 (08:42→21:57)
--- NOTE | 2017-12-24 09:31 | PRG ---
DATE OF SERVICE: 12/24/2017 Ms. Mcmillan remains in the previously described state, noncommunicative. She is back in sinus rhythm and she has been having some atrial arrhythmias despite the intravenous d iltiazem. The patient, as mentioned, has had a previous extensive stroke. She resides in [place] [facility] [place]. PHYSICAL EXAMINATION: LUNGS: Clear. CARDIAC: Currently no murmur, rub or gallop. ABDOMEN: Soft, nontender. EXTREMITIES: No edema. ASSESSMENT: 1. History of hypertension. 2. Remote history of atrial fibrillation with recent recurrence. 3. History of noncompliance in the past. 4. Previous strokes. 5. Atrial arrhythmias, some of which I suspect may be atrial flutter despite diltiazem. PLAN: 1. Discussed with the pharmacist. The patient cannot take oral medications. The medicines are per feeding tube, Multaq cannot be given per feeding. The only anti-arrhythmic which may be effective wo uld be amiodarone. 2. Unfortunately some of the newer oral anticoagulants can be used. She has not had recent extensiv e stroke. Therefore, we can now anticoagulate and she is now at control setting. We will give her E liquis. 3. Stop aspirin. 4. Obviously long-term prognosis is poor. No family available today to further discuss. The nurse indicates to me that the patient's son indicates he may wish to have her do not resuscitate, but the current code status is full resuscitation. 5. Also had some nonsustained ventricular tachycardia.
[2017-12-24] MEDS: Amiodarone 200 MG TAB PO SCH ×2 (10:27→21:55)
--- NOTE | 2017-12-24 10:51 | PDOC.PN ---
- Subjective Encounter Start Date: 12/24/17 Encounter Start Time: 10:50 Ms. Mcmillan was seen today in follow-up of AFIB with RVR. She is nonverbal and can not express her needs. She has her eyes open. - Objective Resuscitation Status: Resuscitation Status FULL:Full Resuscitation MAR Reviewed: Yes Vital Signs & Weight: Vital Signs (12 hours) Temp Pulse Resp BP BP Pulse Ox 12/24/17 08:42 90 143/73 H 12/24/17 08:00 99.1 F 90 16 143/73 H 97 12/24/17 03:06 99.3 F 81 14 110/65 95 12/24/17 00:00 97.1 F L 82 18 135/65 92 L Weight Weight 147 lb 1 oz I&O: 12/23/17 12/24/17 12/25/17 06:59 06:59 06:59 Intake Total 769 160 750 Balance 769 160 750 Result Diagrams: 12/23/17 04:37 12/23/17 04:37 Additional Labs: Accuchecks 12/24/17 12/24/17 12/23/17 05:58 00:39 18:21 POC Glucose 131 H 195 H 128 H 12/23/17 15:04 POC Glucose 183 H Phys Exam - Physical Examination HEENT: PERRLA Cardiovascular: no significant murmur, no rub, irregular Gastrointestinal: soft, non-tender, no distention, positive bowel sounds PEG site is ok, no redness induration or drainage Musculoskeletal: no edema Left hemiparesis, and aphasia Dx/Plan (1) Atrial fibrillation with RVR Code(s): I48.91 - UNSPECIFIED ATRIAL FIBRILLATION Status: Acute (2) CVA (cerebral vascular accident) Code(s): I63.9 - CEREBRAL INFARCTION, UNSPECIFIED Status: Chronic Qualifiers: CVA mechanism: unspecified Qualified Code(s): I63.9 - Cerebral infarction, unspecified Comment: Stable. Has a h/o Ischemic R frontal involvement with expressive dysphasia and dysarthria. Continue ASA 325mg po daily. (3) Chronic diastolic heart failure Code(s): I50.32 - CHRONIC DIASTOLIC (CONGESTIVE) HEART FAILURE Status: Chronic Comment: Stable, not in acute exacerbation. (4) DM2 (diabetes mellitus, type 2) Status: Chronic Qualifiers: Diabetes mellitus intermediate school teacher insulin use: without intermediate school teacher use Diabetes mellitus complication status: with circulatory complication Diabetes mellitus complication detail: with peripheral angiopathy with gangrene Qualified Code(s ): E11.52 - Type 2 diabetes mellitus with diabetic peripheral angiopathy with gangrene (5) HTN (hypertension) Code(s): I10 - ESSENTIAL (PRIMARY) HYPERTENSION Status: Chronic Qualifiers: Hypertension type: essential hypertension Qualified Code(s): I10 - Essential (primary) hypertension Comment: Fairly well controlled. - Plan * AFIB- her heart rate is controlled. Cardiology input appreciated. She has been started on Amiodarone, and Eliquis * UTI- I suspect asymptomatic bactiuria- culture resultes noted, She has a low colony count of gram negative rods- will discontinue antibiotics * CVA- with late efects- stable * HTN- blood pressure is stable * DM- blood glucose is stable * Agree with Palliative care consult to help establish goals of care and code status, as there have been conflicting requests per family. * Hopefully back to [place] soon
[2017-12-24 13:51] VITALS: BMI 26.0
[2017-12-24] MEDS: Pravastatin Sodium 20 MG TAB PER TUBE SCH (21:56)
[2017-12-24] MEDS: Apixaban 5 MG TAB PO SCH (21:56)
--- NOTE | 2017-12-25 01:57 | CON ---
DATE OF SERVICE: 12/24/2017 ELECTROPHYSIOLOGY CONSULTATION REFERRING PHYSICIAN: Yannick Real MD HISTORY OF PRESENT ILLNESS: I am seeing Ms. Mcmillan at our [facility] telemetry floor as an electrophysiology pricing consultant. Her problems are: 1. Paroxysmal atrial fibrillation with rapid ventricular rates. A. Prior admission in December with similar issues. 2. History of stroke. A. Residual aphasia and bedbound status, also PEG tube for feeding. 3. Preserved LV function on echo 06/12/2017 with LVEF 50-55%, mild LVH, diastolic dysfunction, moderate left atrial enlargement, pulmonary hypertension at 49 mmHg, mild pulmonary artery vegetation. 4. Risk factors including diabetes and hypertension. 5. Prior history of seizure disorder. 6. Hypothyroidism. 7. History of decubitus ulcers. 8. Tube feeding with the PEG tube. ALLERGIES: None noted. MEDICATIONS AT HOME: Included pravastatin, sertraline, metformin, carvedilol, Tylenol, amlodipine, Abbey, ascorbate, Polyvinyl EtOH for eye tears, aspirin , calcium, gabapentin, glucagon, quetiapine, fumarate, Seroquel, sennosides, multivitamin, valproic acid, ascorbic acid, levetiracetam oral solution, Tylenol , cefdinir, diltiazem CD 30 mg, and docusate. SUBJECTIVE: Ms. Mcmillan is aphasic, history obtained from the chart, it seems that she was readmitted with AFib rapid ventricular rates from a care home up to just one day after her discharge. This lady does not seem to have any other new symptoms. No syncope, no progression of her advanced neurological deficits, no fever, chills, cough. No stroke-like symptoms noted. REVIEW OF SYSTEMS: Rest of 12-point system otherwise unremarkable. PAST MEDICAL HISTORY: As above. SOCIAL HISTORY: The patient is smoking, EtOH or drug abuse. FAMILY HISTORY: Noncontributory. OBJECTIVE DATA: VITAL SIGNS: Blood pressure is 122/63, heart rate 76, respirations 16, temperature 98.3 degrees Fahrenheit. GENERAL: She is alert and oriented woman in no apparent distress. NECK: Supple. Jugular veins not distended. CHEST: Coarse without crackles. CARDIOVASCULAR: Heart sounds are regular to rate and rhythm. No murmur or gallop. ABDOMEN: Benign. Bowel sounds positive. EXTREMITIES: Lower extremities without edema, clubbing or cyanosis. Pulses are adequate. NEUROLOGIC: The patient is nonfocal. MUSCULOSKELETAL: No joint swelling or deformities. SKIN: Without rash. DATABASE: The EKG is reviewed, initially revealing atrial fibrillation with rapid rates at 121 beats per minute, narrow QRS, QTC is 460 milliseconds. Subsequent telemetry reveals atrial fibrillation with improving rate control eventually converted to sinus rhythm noted spontaneously currently in sinus rhythm with rates in 75 beats per minute are seen. LABORATORY DATA: The white cell counts are 8.7, hemoglobin is 10.9, platelet count is 361. Sodium 140, potassium 4.1, BUN is 23, creatinine is 0.56, glucose of 104. ASSESSMENT AND PLAN: Ms. Mcmillan is a pleasant 82-year-old woman with prior history of disabling stroke possibly with atrial fibrillation, PEG tube placement, who is now here with recurrent atrial fibrillation with rapid rates. Rate control is difficult. I do not see significant episodes of regularized atrial flutter, mostly I see her being in atrial fibrillation and coarse atrial fibrillation at times. Now, she is back in sinus rhythm, possibly due to the initiated amiodarone therapy. My plan would be at this point: 1. I agree with initiated therapy, amiodarone loading is reasonable, for now she is in crushed amiodarone 400 mg twice a day taper. This should continue at least for a week and then could be switched to a lower dose, especially if she remains in sinus rhythm. 2. Prior stroke. Her advanced age prior CVA, DM, HTN, gender CHADSVasc score is 7. She will benefit from Eliquis administration. 3. For now, I think she is a poor candidate for long-term ablation therapy if atrial fibrillation with rapid rates will be difficult on amiodarone or it become contraindicated pacing implantation even her ablation is a viable option for the future. Thank you again for allowing me to participate in the care of this patient. CHERRY
--- NOTE | 2017-12-25 09:15 | PRG ---
DATE OF SERVICE: 12/25/2017 HISTORY: Ms. Mcmillan appears comfortable. She is awake. She is aphasic. PHYSICAL EXAMINATION: VITAL SIGNS: Blood pressure 133/67, pulse 70. LUNGS: Clear. CARDIAC: Normal S1, normal S2. ABDOMEN: Soft, nontender. EXTREMITIES: There is no edema. ASSESSMENT: 1. Previous atrial fibrillation. 2. Previous stroke. 3. Bedbound and aphasic due to previous stroke. PLAN: 1. She is on amiodarone. 2. Apixaban. 3. Poor candidate for interventional therapy due to her comorbidities as outlined by Dr. Torres. Coul d probably send her back to the residential tomorrow if she is stable. Obviously her long-term prognosis is poor. No family members available today.
[2017-12-25] MEDS: Gabapentin 100 MG CAP PO SCH ×2 (10:00→15:45)
[2017-12-25] MEDS: Apixaban 5 MG TAB PO SCH (10:00)
[2017-12-25] MEDS: Amlodipine 5 MG TAB PER TUBE SCH (10:01)
[2017-12-25] MEDS: Carvedilol 3.125 MG TAB PER TUBE SCH (10:01)
[2017-12-25] MEDS: Amiodarone 200 MG TAB PO SCH (10:02)
[2017-12-25] MEDS: Valproate Sodium 250 mg/5 ml UD Cup PER TUBE SCH (10:02)
[2017-12-25] MEDS: levETIRAcetam 500 mg/5 ml Oral Solution PER TUBE SCH (10:03)
--- NOTE | 2017-12-25 12:31 | PDOC.PN ---
- Subjective Encounter Start Date: 12/25/17 Encounter Start Time: 12:30 Ms. Mcmillan was seen today in follow-up. she is non-verbal, she appears comfortable. - Objective Resuscitation Status: Resuscitation Status FULL:Full Resuscitation MAR Reviewed: Yes Vital Signs & Weight: Vital Signs (12 hours) Temp Pulse Resp BP Pulse Ox 12/25/17 10:01 77 12/25/17 08:24 99.4 F 77 18 145/88 H 95 12/25/17 03:03 98.5 F 71 19 133/67 93 L Weight Admit Weight 147 lb Weight 147 lb 1 oz I&O: 12/24/17 12/25/17 12/26/17 06:59 06:59 06:59 Intake Total 160 2415 Balance 160 2415 Result Diagrams: 12/23/17 04:37 12/23/17 04:37 Additional Labs: Accuchecks 12/25/17 12/25/17 12/25/17 11:59 05:22 00:06 POC Glucose 201 H 135 H 137 H 12/24/17 12/24/17 18:14 12:04 POC Glucose 172 H 185 H Phys Exam - Physical Examination HEENT: PERRLA Respiratory: no wheezing, no rales, no rhonchi, clear to auscultation bilateral Cardiovascular: RRR, no significant murmur, no rub Gastrointestinal: soft, non-tender, no distention, positive bowel sounds Musculoskeletal: no edema Dx/Plan (1) Atrial fibrillation with RVR Code(s): I48.91 - UNSPECIFIED ATRIAL FIBRILLATION Status: Acute (2) CVA (cerebral vascular accident) Code(s): I63.9 - CEREBRAL INFARCTION, UNSPECIFIED Status: Chronic Qualifiers: CVA mechanism: unspecified Qualified Code(s): I63.9 - Cerebral infarction, unspecified Comment: Stable. Has a h/o Ischemic R frontal involvement with expressive dysphasia and dysarthria. Continue ASA 325mg po daily. (3) Chronic diastolic heart failure Code(s): I50.32 - CHRONIC DIASTOLIC (CONGESTIVE) HEART FAILURE Status: Chronic Comment: Stable, not in acute exacerbation. (4) DM2 (diabetes mellitus, type 2) Status: Chronic Qualifiers: Diabetes mellitus termite renewal inspector insulin use: without retirement use Diabetes mellitus complication status: with circulatory complication Diabetes mellitus complication detail: with peripheral angiopathy with gangrene Qualified Code(s ): E11.52 - Type 2 diabetes mellitus with diabetic peripheral angiopathy with gangrene (5) HTN (hypertension) Code(s): I10 - ESSENTIAL (PRIMARY) HYPERTENSION Status: Chronic Qualifiers: Hypertension type: essential hypertension Qualified Code(s): I10 - Essential (primary) hypertension Comment: Fairly well controlled. - Plan * AFIB- her heart rate is controlled * After meeting with the Palliative care team, the family has decided place the patient in [facility] [place].
--- NOTE | 2017-12-25 14:09 | PDOC.CTH ---
<Day Brown - Last Filed: 12/25/17 15:25> Cardiology Progress Note - Subjective EP progress note: Patient seen and evaluated. Unable to obtain ROS due to baseline aphasia. Stable over HS - Objective Vital Signs Temp Pulse Resp BP Pulse Ox 12/25/17 10:01 77 12/25/17 08:24 99.4 F 77 18 145/88 H 95 12/25/17 03:03 98.5 F 71 19 133/67 93 L Admit Weight 147 lb Weight 147 lb 1 oz 12/24/17 12/25/17 12/26/17 06:59 06:59 06:59 Intake Total 160 2415 Balance 160 2415 - Physical Examination General/Neuro: NAD Neck: no JVD present Lungs: unlabored respirations Heart: PMI normal, RRR Abdomen: NT/ND, soft - Telemetry Telemetry Rhythm: SR - Labs Result Diagrams: 12/23/17 04:37 12/23/17 04:37 Troponin/CKMB CK-MB (CK-2) 3.4 ng/mL (0-6.6) 12/22/17 15:59 Troponin I Less than 0.010 ng/mL (< 0.028) 12/22/17 22:05 - Assessment/Plan 1. Paroxysmal AF with RVR- now on Amiodarone (400mg PO BID x 1 week, then 200mg BID x 1 week then 200mg QD thereafter) via PEG for AF suppression. Maintaining sinus rhythm. Poor candidate for ablation 2. CHADS VASC: 7 (age, gender, hx of HTN/CVA/diabetes) OAC indicated. On Eliquis 5mg BID. continue medical management with Amiodarone and Eliquis <Edgar Torres - Last Filed: 12/27/17 11:44> Cardiology Progress Note - Objective Admit Weight 147 lb Weight 147 lb 1 oz 12/26/17 12/27/17 12/28/17 06:59 06:59 06:59 Intake Total 30 Balance 30 - Labs Result Diagrams: 12/23/17 04:37 12/23/17 04:37 Troponin/CKMB CK-MB (CK-2) 3.4 ng/mL (0-6.6) 12/22/17 15:59 Troponin I Less than 0.010 ng/mL (< 0.028) 12/22/17 22:05 Attending Addendum - Attending Addendum Date/Time: 12/27/17 2508 I personally evaluated the patient and discussed the management with Ms Brown. I agree with the History, Examination, Assessment and Plan documented above with any addition or exceptions noted below.
[2017-12-25] MEDS: HumaLOG 300 UNITS/3 ML VIAL SC PRN (14:15)
[2017-12-25 14:23] VITALS: BP 116/72; TEMP 98.3
--- NOTE | 2017-12-25 19:33 | DIS ---
PRIMARY CARE PHYSICIAN: Dr. Ania Kidd. DATE OF ADMISSION: 12/22/2017. DATE OF DISCHARGE: 12/25/2017. DISCHARGE DISPOSITION: Back to the [facility] with hospice. DISCHARGE DIAGNOSES: 1. Atrial fibrillation with rapid ventricular response. 2. Cerebrovascular accident. 3. Diabetes mellitus. 4. Hypertension. 5. Aphagia and dysphagia secondary to the cerebrovascular accident. DISCHARGE MEDICATIONS: Include amiodarone 400 mg twice a day per PEG, amlodipine 5 mg per PEG twice a day, Eliquis 5 mg twice a day, Colace 100 mg twice daily, valproic acid 1000 mg per tube twice a da y, sertraline 50 mg per tube at bedtime, Senna 2 tablets twice a day, Seroquel 50 mg per tube twice a day, pravastatin 20 mg per tube daily, Artificial Tears as needed, multivitamin daily, metformin 500 mg per tube twice a day, Keppra 500 mg per tube daily, glucagon as needed, gabapentin 200 mg per tub e twice a day, Coreg 3.125 mg per tube twice daily, vitamin D3 calcium carbonate per tube daily, aspi rin 81 mg per tube daily, ascorbic acid 500 mg per tube twice a day. CODE STATUS: Full code. ALLERGIES: No known drug allergies. PROCEDURES DONE DURING ADMISSION: The patient had a CT scan of the brain which was negative for any acute intracranial process. HOSPITAL COURSE: Ms. Mcmillan is a pleasant 82-year-old female who was sent over from the [facility] due to elevated heart rate and shallow breathing. When she was evaluated in the ER, she was found to be in atrial fibrillation with rapid ventricular response. She was admitted and started on a Card izem drip. She was seen by Cardiology and was placed on amiodarone as well as Eliquis for stroke pre vention. The patient was seen by the palliative care team and given the patient's severe late conseq uences from her stroke, she is nonverbal, paraplegic, and aphasic and basically noncommunicative. [facility] family decided to place her back in a group home at this time on hospice. Therefore, she was dis charged to the [facility] in stable condition on 12/25/2017.
== END 2017-12-25 16:19 | DRG 309 ==
LOC: ERS 15:11 → 2NO 18:57
PROVIDERS: ADMIT Internal Medicine; ATTEND Internal Medicine
PROC: 3E0G76Z Introduction of Nutritional Substance into Upper GI, Via Natural or Artificial Opening (ICD-10-PCS; principal; 2017-12-24)
DX: I48.0 Paroxysmal atrial fibrillation (principal); I69.354 Hemiplegia and hemiparesis following cerebral infarction affecting left non-dominant side; I50.32 Chronic diastolic (congestive) heart failure; N39.0 Urinary tract infection, site not specified; E11.52 Type 2 diabetes mellitus with diabetic peripheral angiopathy with gangrene; I69.320 Aphasia following cerebral infarction; I69.391 Dysphagia following cerebral infarction; R13.10 Dysphagia, unspecified; G40.909 Epilepsy, unspecified, not intractable, without status epilepticus; I11.0 Hypertensive heart disease with heart failure; E03.9 Hypothyroidism, unspecified; Z79.84 Long term (current) use of oral hypoglycemic drugs; Z74.01 Bed confinement status; Z93.1 Gastrostomy status
CPT/HCPCS: 36415; 36416; 51701; 70450; 71045; 80048; 80053; 81003; 81015; 82553; 83605; 84443; 84484; 85025; 87040; 87070; 87086; 87149; 87205; 93005; 94760; 96365; 96366; 96368; 96376; A4216; A4353; J0696; J1650; J7050

== ENCOUNTER 2018-01-14 08:28 | Outpatient (CLI) | payer MEDICARE, MEDICAID ==
[~2018-01-14 08:28] MED LIST changes: -ISOVUE-370 76%-LOCM 1 ML ONE; +Lidocaine 2% Jelly 5 ML TUBE ONE; +Sodium Chloride 0.9% 15 ML NEB ONE
--- NOTE | 2018-01-14 09:36 | PRG ---
DATE OF SERVICE: 01/14/2018 HISTORY: Ms. 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 Since the patient's last vis it, Ms. Mcmillan had been receiving dressing changes of Medihoney for her right lateral lower leg woun ds. The patient is unable to answer any questions in regards to her medical history. Again the jillian ent is unaccompanied by any family members. PHYSICAL EXAMINATION: VITAL SIGNS: Temperature 98.0, pulse 76, respirations 16, blood pressure 138/94. Accu-Chek 157. EXTREMITIES: An ulceration of the right lateral lower leg is present which measures approximately 5. 5 x 1.8 cm. The dimensions of the wound at the time of the patient's last visit were approximately 6 .0 x 3.0 cm. Granulation tissue is present within the wound margins. Less nonviable tissue is prese nt within the wound margins than at the time of the patient's last visit. No purulent drainage is as sociated with the wound. No erythema of the skin surrounding the wound is present. No maceration of the skin of the periwound is noted. A dorsalis pedis pulse or posterior tibial pulse is not palpabl e on the right. No significant edema of the right foot or lower leg is present on exam today. ASSESSMENT AND PLAN: 1. Ulceration of right lateral lower leg. The appearance of the wound has improved since the patien t's last visit. In addition, the dimensions of the wound have significantly decreased. Orders will again be transmitted to [facility] for dressing changes of Medihoney, 4 x 4s, an ABD, Kerlix, a nd an Enrrique bandage 3 times per week after cleansing and irrigation. Orders will also be transmitted t o [facility] for continued offloading of the right heel and right lateral lower leg. The treat ment plan was previously discussed with the patient's wound care nurse at [facility]. 2. Hypertension. 3. Diabetes mellitus. The patient's Accu-Chek in clinic today is 157. 4. Congestive heart failure. 5. Hypothyroidism. 6. Cerebrovascular accident with dysphagia. 7. Seizure disorder status post cerebrovascular accident.
== END 2018-01-14 08:29 | disposition home or self-care (01) ==
LOC: WCC 08:28
PROVIDERS: ATTEND Family Medicine
DX: E11.622 Type 2 diabetes mellitus with other skin ulcer (principal); L97.919 Non-pressure chronic ulcer of unspecified part of right lower leg with unspecified severity; I11.0 Hypertensive heart disease with heart failure; I50.9 Heart failure, unspecified; E03.9 Hypothyroidism, unspecified; I69.991 Dysphagia following unspecified cerebrovascular disease; R13.10 Dysphagia, unspecified; G40.909 Epilepsy, unspecified, not intractable, without status epilepticus
CPT/HCPCS: 36416; 97602

== ENCOUNTER → 2018-02-27 | Outpatient (CLI) | payer MEDICARE, MEDICAID ==
[~2018-02-27] MED LIST changes: -Lidocaine 2% Jelly 5 ML TUBE ONE
--- NOTE | 2018-02-27 13:34 | PRG ---
DATE OF SERVICE: 02/27/2018 SUBJECTIVE: Ms. Roxie Mcmillan is an 82-year-old resident of [facility], referred to the Wound Center for evaluation of an ulceration of the right lateral lower leg. The patient was referred to the Wound Center by Ania Kidd NP, on 11/29/2017. The patient is unable to answer any questions in regard to her medical history. The patient is also unaccompanied by any family members or staff from [facility]. After being seen in the Wound Center, the patient was placed on dressing changes of Medihoney for the right lateral lower leg wound. Orders were also transmitted to [facility] for a heel lift boot to be applied to the right foot and lower leg to facilitate offloading of both the right heel and right lateral lower leg wounds. OBJECTIVE: VITAL SIGNS: Pulse 55, respirations 18, blood pressure 113/53. EXTREMITIES: An ulceration of the right lateral lower leg is present, which measures approximately 8.0 x 1.5 cm. The dimensions of the wound at the time of the patient's visit on 01/14/2018 were approximately 6.0 x 3.0 cm. Granulation tissue is present within the wound margins. Nonviable tissue is also present within the wound margins. No purulent drainage is associated with the wound. No erythema of the skin surrounding the wound is present. No maceration of the skin of the periwound is noted. No significant edema of the right foot or lower leg is present on exam today. ASSESSMENT AND PLAN: 1. Ulceration of right lateral lower leg. Dressing changes of Medihoney, 4x4s, ABD, Kerlix, and ANANT bandage will be continued every other day or alternatively 3 times per week after cleansing and irrigation. The patient is to continue to utilize her heel lift boot at all times to facilitate offloading of both the right heel and right lateral lower leg. The treatment plan was previously discussed with the patient's wound care nurse at [facility]. 2. Hypertension. 3. Diabetes mellitus. Accu-Cheks will be obtained at the time of the patient's clinic visits. 4. Congestive heart failure. 5. Hypothyroidism. 6. Cerebrovascular accident with dysphasia. 7. Seizure disorder, status post cerebrovascular accident. Job ID: [id number]
== END ==
LOC: CANPRECLI → MERGE 10:14 → WCC 10:14
PROVIDERS: ATTEND Family Medicine
DX: E11.622 Type 2 diabetes mellitus with other skin ulcer (principal); L97.919 Non-pressure chronic ulcer of unspecified part of right lower leg with unspecified severity; I11.0 Hypertensive heart disease with heart failure; I50.9 Heart failure, unspecified; I69.921 Dysphasia following unspecified cerebrovascular disease; E03.9 Hypothyroidism, unspecified; G40.909 Epilepsy, unspecified, not intractable, without status epilepticus
CPT/HCPCS: 97602; A4218

== ENCOUNTER 2018-04-24 12:51 | Outpatient (CLI) | payer MEDICARE, MEDICAID ==
--- NOTE | 2018-04-24 14:54 | PRG ---
DATE OF SERVICE: 04/24/2018 HISTORY: Ms. Roxie Mcmillan is an 82-year-old resident of [facility], referred to the Wound Center for evaluation of an ulceration of the right lateral lower leg. The patient was referred to the Wound Center by Ania Kidd, nurse practitioner on 11/29/2017. The patient is unable to answer any questions in regard to her medical history. After being seen in the Wound Center, the patient was placed on dressing changes of Medihoney for the right lateral lower leg wound. Orders were also transmitted to [facility] for a Heelift boot to be applied to the right foot and lower leg to facilitate offloading of both the right heel and right lateral lower leg wounds. PHYSICAL EXAMINATION: VITAL SIGNS: Temperature 97.8, pulse 64, respirations 16, blood pressure 116/ 54. Accu-Chek 134. EXTREMITIES: An ulceration of the right lateral lower leg is present, which measures approximately 1.6 x 1.0 cm. The dimensions of the wound at the time of the patient's visit on 02/27/2018 were approximately 8.0 x 1.5 cm. No purulent drainage is associated with the wound. No erythema of the skin surrounding the wound is present. No maceration of the skin of the periwound is noted. No significant edema of the right foot or lower leg is present on exam today. An ulceration of the right elbow is present associated with eschar. Bone is palpable within the wound margins. BACK: Superficial wounds of the presacral region are noted. No purulent drainage is associated with any of the wounds. Maceration of the skin of the presacral region is noted. ASSESSMENT AND PLAN: 1. Ulceration of right lateral lower leg. Dressing changes of Medihoney, 4x4s, an ABD, Kerlix, and an Enrrique bandage will be continued every other day or alternatively 3 times per week after cleansing and irrigation. The patient is to continue to utilize her Heelift boot at all times to facilitate offloading of both the right heel and the right lateral lower leg wound. The treatment plan was previously discussed with the patient's wound care nurse at [facility]. Orders will be transmitted to [facility] today for plain films of the right elbow to look for findings suggestive of osteomyelitis. Dressing changes of Medihoney, gauze, and Mepilex border for the right elbow wound are to be performed three times per week after cleansing and irrigation at [facility]. Orders will also be transmitted to [facility] for the presacral region to be cleansed with Dove soap and water, patted dry, and treated with a barrier cream such as Calmoseptine every other day or as needed as well as for a eyv-ohk-alfj mattress or air-fluidized bed. 2. Hypertension. 3. Diabetes mellitus. The patient's Accu-Chek in clinic today is 134. 4. Congestive heart failure. 5. Hypothyroidism. 6. Cerebrovascular accident with dysphagia. 7. Seizure disorder status post cerebrovascular accident. Job ID: [id number] MTDD
[2018-04-24] MEDS ORDERED: Sodium Chloride 0.9% 15 ML NEB ONE (15:47)
== END 2018-04-24 12:52 | disposition home or self-care (01) ==
LOC: WCC 12:51
PROVIDERS: ATTEND Family Medicine
DX: E11.621 Type 2 diabetes mellitus with foot ulcer (principal); L97.919 Non-pressure chronic ulcer of unspecified part of right lower leg with unspecified severity; I11.0 Hypertensive heart disease with heart failure; E03.9 Hypothyroidism, unspecified; I69.991 Dysphagia following unspecified cerebrovascular disease; R13.10 Dysphagia, unspecified; R56.9 Unspecified convulsions
CPT/HCPCS: 36416

== ENCOUNTER 2018-05-13 20:48 | Emergency (ER) | payer MEDICARE, MEDICAID ==
[2018-05-13] MEDS ORDERED: Lidocaine 2% 11 ML SYR FS SCH (21:15)
--- NOTE | 2018-05-13 21:48 | RAD ---
KUB: HISTORY: PEG tube check. FINDINGS: Contrast was injected into the PEG tube, which is in the antrum region of the stomach. There is cont rast in the antrum and duodenum and proximal jejunum. No extravasation. IMPRESSION: Gastrostomy tube in the stomach. POS: MONICA
== END 2018-05-13 22:45 ==
LOC: ERS 20:48
DX: Z43.1 Encounter for attention to gastrostomy (principal); G40.909 Epilepsy, unspecified, not intractable, without status epilepticus; I11.0 Hypertensive heart disease with heart failure; I50.9 Heart failure, unspecified; E11.9 Type 2 diabetes mellitus without complications; Z86.73 Personal history of transient ischemic attack (TIA), and cerebral infarction without residual deficits; F32.9 Major depressive disorder, single episode, unspecified; Z79.84 Long term (current) use of oral hypoglycemic drugs; Z79.899 Other long term (current) drug therapy; Z79.82 Long term (current) use of aspirin
CPT/HCPCS: 43762; 74018

== ENCOUNTER 2018-06-24 09:29 | Outpatient (CLI) | payer MEDICARE, MEDICAID ==
--- NOTE | 2018-06-24 11:15 | PRG ---
DATE OF SERVICE: 06/24/2018 HISTORY: Ms. Roxie Mcmillan is an 82-year-old resident of [facility], referred to the wound center for evaluation of an ulceration of the right lateral lower leg. The patient was referred to the wound center by Ania Kidd, nurse practitioner, on 11/29/2017. After being seen in the wound center, the patient was placed on dressing changes of Medihoney for the right lateral lower leg wound. Orders were also transmitted to [facility] for a Heelift boot to be applied to the right foot and lower leg to facilitate offloading of both the right heel and right lateral lower leg wounds. At the time of the patient's last visit on 04/24/2018, superficial wounds of the presacral region were noted. At this time , orders were transmitted to [facility] for placement of the patient on an air-fluidized bed or low air loss mattress. PHYSICAL EXAMINATION: VITAL SIGNS: Temperature 98.2, pulse 53, respirations 16, blood pressure 105/ 70. EXTREMITIES: An ulceration of the right lateral lower leg is present, which measures approximately 5.4 x 3.9 cm. A scar associated with the wound was debrided with an excisional full-thickness debridement with the use of scissors. No purulent drainage is associated with the wound. No erythema of the skin surrounding the wound is present. No maceration of the skin of the periwound is noted. No significant edema of the right foot is present on exam today. The eschar was loosely attached to the wound bed. An ulceration of the right heel covered by dry stable eschar is present, which measures approximately 4.4 x 4.0 cm. A wound of the right elbow is present, which measures approximately 2.2 x 2.1 cm. Granulation tissue is present within the wound margins. No purulent drainage is associated with the wound. No erythema of the skin surrounding the wound is present. No maceration of the skin of the periwound is noted. No bone is palpable within the wound margins as it was palpable at the time of the patient's last visit. BACK: A wound of the presacral region is present, which measures approximately 1.8 x 3.0 cm. No purulent drainage is associated with the wound. No erythema of the skin surrounding the wound is present. No maceration of the skin of the periwound is noted. ASSESSMENT AND PLAN: 1. Ulceration of right lateral lower leg. The patient also has an ulceration of the right heel and right elbow as described above. A sacral ulceration is also present on today's exam. For the wounds of the right lateral lower leg, right elbow, and sacrum, dressing changes of Medihoney and Allevyn will be initiated today. These dressing changes are to be performed every other day or alternatively 3 times per week after cleansing and irrigation. The patient is to continue to utilize her Heelift boot at all times to facilitate offloading of both the right heel and the right lateral lower leg wound. Plain films of the right elbow obtained previously showed no findings suggestive of osteomyelitis. Orders will be transmitted to [facility] for the use of Webril as needed to protect the right lateral lower leg wound from any pressure to the right lateral lower leg by the patient's Heelift boot. 2. Hypertension. 3. Diabetes mellitus. Accu-Cheks will be obtained at the time of the patient's clinic visits. 4. Congestive heart failure. 5. Hypothyroidism. 6. Cerebrovascular accident with dysphagia. 7. Seizure disorder status post cerebrovascular accident. Job ID: [id number] MTDD
[2018-06-24] MEDS ORDERED: Sodium Chloride 0.9% 15 ML NEB ONE (18:00)
== END 2018-06-24 09:30 | disposition home or self-care (01) ==
LOC: WCC 09:29
PROVIDERS: ATTEND Family Medicine
DX: E11.622 Type 2 diabetes mellitus with other skin ulcer (principal); L97.419 Non-pressure chronic ulcer of right heel and midfoot with unspecified severity; L98.499 Non-pressure chronic ulcer of skin of other sites with unspecified severity; L98.429 Non-pressure chronic ulcer of back with unspecified severity; I11.0 Hypertensive heart disease with heart failure; I50.9 Heart failure, unspecified; E03.9 Hypothyroidism, unspecified; I69.391 Dysphagia following cerebral infarction; R13.10 Dysphagia, unspecified; G40.909 Epilepsy, unspecified, not intractable, without status epilepticus; I69.398 Other sequelae of cerebral infarction
CPT/HCPCS: A4218

== ENCOUNTER 2018-08-05 10:16 | Outpatient (CLI) | payer MEDICARE, MEDICAID ==
--- NOTE | 2018-08-05 11:53 | PRG ---
DATE OF SERVICE: 08/05/2018 HISTORY: Ms. Roxie Mcmillan is an 83-year-old resident of [facility], referred to the Wound Center for evaluation of an ulceration of the right lateral lower leg. The patient also has wounds of the right heel, right elbow, and sacrum. For the wounds of the right lateral lower leg, right elbow, and sacrum, the patient has been receiving dressing changes of Medihoney and Allevyn. The patient continues to utilize a Heelift boot for offloading of both the right heel and right lateral lower leg wounds. PHYSICAL EXAMINATION: VITAL SIGNS: Pulse 55, respirations 17, blood pressure 101/77. Accu-Chek 93. EXTREMITIES: The ulceration of the right lateral lower leg has healed completely. An ulceration of the right heel measures approximately 4.6 x 4.0 cm. Almost all of the wound bed is covered by dry stable eschar. A wound of the right elbow is present, which measures approximately 2.5 x 2.7 cm. Granulation tissue is present within the wound margins. Bone is palpable within the wound margins on exam today. No purulent drainage is associated with the wound. No erythema of the skin surrounding the wound is present. No maceration of the skin of the periwound is noted. BACK: A wound of the presacral region is present, which measures approximately 1.2 x 2.1 cm. The dimensions of the wound at the time of the patient's last visit were approximately 1.8 x 3.0 cm. No purulent drainage is associated with the wound. No erythema of the skin surrounding the wound is present. No maceration of the skin of the periwound is noted. ASSESSMENT AND PLAN: 1. Ulceration of right lateral lower leg. The patient also has ulcerations of the right heel, right elbow, and sacrum. For the wounds of the right elbow and sacrum, dressing changes of Medihoney and Allevyn will be continued every other day or alternatively 3 times per week after cleansing and irrigation at [facility]. The patient is to continue to utilize her Heelift boot at all times to facilitate offloading of both the right heel and right lateral lower leg wounds. Plain films of the right elbow obtained previously showed no findings suggestive of osteomyelitis. MRI of the right elbow will be obtained with and without contrast again to look for findings suggestive of osteomyelitis. As stated above, the wound of the right lateral lower leg has healed completely. 2. Hypertension. 3. Diabetes mellitus. The patient's Accu-Chek in clinic today is 93. 4. Congestive heart failure. 5. Hypothyroidism. 6. Cerebrovascular accident with dysphagia. 7. Seizure disorder status post cerebrovascular accident. Job ID: [id number]
[2018-08-05] MEDS ORDERED: Sodium Chloride 0.9% 15 ML NEB ONE (18:00)
== END 2018-08-05 10:17 | disposition home or self-care (01) ==
LOC: WCC 10:16
PROVIDERS: ATTEND Family Medicine
DX: E11.622 Type 2 diabetes mellitus with other skin ulcer (principal); L97.919 Non-pressure chronic ulcer of unspecified part of right lower leg with unspecified severity; I11.0 Hypertensive heart disease with heart failure; I50.9 Heart failure, unspecified; E03.9 Hypothyroidism, unspecified; I69.991 Dysphagia following unspecified cerebrovascular disease; R13.10 Dysphagia, unspecified; R56.9 Unspecified convulsions
CPT/HCPCS: 36416; 97602; A4218

== ENCOUNTER 2018-08-19 15:38 | Outpatient (CLI) | payer MEDICARE, MEDICAID ==
--- NOTE | 2018-08-19 16:49 | PRG ---
DATE OF SERVICE: 08/19/2018 HISTORY: Ms. Roxie Mcmillan is an 83-year-old resident of [facility], referred to the Wound Center for evaluation of an ulceration of the right lateral lower leg. The patient also has wounds of the right heel, right elbow, and sacrum. For the wounds of the right lateral lower leg, right elbow, and sacrum, the patient has been receiving dressing changes of Medihoney and Allevyn. The patient continues to utilize a Heelift boot for offloading of both the right heel and right lateral lower leg wounds. MRI of the right elbow was unable to be obtained because of contractures. PHYSICAL EXAMINATION: VITAL SIGNS: Pulse 57, respirations 15, and blood pressure 132/78. EXTREMITIES: An ulceration of the right lateral lower leg is present, which measures approximately 3.0 x 2.0 cm. An ulceration of the right heel is present, which measures approximately 5.0 x 4.5 cm, almost all of the wound bed is covered by dry stable eschar. A wound of the right elbow is present, which measures approximately 3.0 x 3.2 cm. Granulation tissue is present within the wound margins. Bone is again palpable within the wound margins on today's exam. No purulent drainage is associated with the wound. No erythema of the skin surrounding the wound is present. No maceration of the skin of the periwound is noted. BACK: A wound of the presacral region is present, which measures approximately 1.0 x 2.0 cm. The dimensions of the wound at the time of the patient's last visit were approximately 1.2 x 2.1 cm. No purulent drainage is associated with the wound. No erythema of the skin surrounding the wound is present. No maceration of the skin of the periwound is noted. LABORATORY DATA: Accu-Chek 114. ASSESSMENT AND PLAN: 1. Ulceration of right lateral lower leg. The patient also has ulcerations of the right heel, right elbow, and sacrum. For the wounds of the right elbow, right lateral lower leg, and sacrum, dressing changes of Medihoney and Allevyn will be continued every other day or alternatively 3 times per week after cleansing and irrigation at [facility]. The patient is to continue to utilize her Heelift boot at all times to facilitate offloading of the right heel and right lateral lower leg wounds. The right heel wound is to be kept clean and dry and covered with Kerlix. Because MRI of the right elbow was unable to be obtained, the treatment plan with Radiology will be discussed and arrangements for alternative imaging will be made. 2. Hypertension. 3. Diabetes mellitus. The patient's Accu-Chek in clinic today is 114. 4. Congestive heart failure. 5. Hypothyroidism. 6. Cerebrovascular accident with dysphagia. 7. Seizure disorder, status post cerebrovascular accident. Job ID: [id number]
== END 2018-08-19 15:39 | disposition home or self-care (01) ==
LOC: WCC 15:38
PROVIDERS: ATTEND Family Medicine
DX: E11.621 Type 2 diabetes mellitus with foot ulcer (principal); E11.622 Type 2 diabetes mellitus with other skin ulcer; L97.419 Non-pressure chronic ulcer of right heel and midfoot with unspecified severity; L98.499 Non-pressure chronic ulcer of skin of other sites with unspecified severity; L98.419 Non-pressure chronic ulcer of buttock with unspecified severity; I11.0 Hypertensive heart disease with heart failure; I50.9 Heart failure, unspecified; E03.9 Hypothyroidism, unspecified; I69.991 Dysphagia following unspecified cerebrovascular disease; R56.9 Unspecified convulsions
CPT/HCPCS: 36416; 97602

== ENCOUNTER 2018-09-05 16:22 | Outpatient (CLI) | payer MEDICARE, MEDICAID ==
--- NOTE | 2018-09-05 16:42 | PRG ---
DATE OF SERVICE: 09/05/2018 HISTORY: Ms. Roxie Mcmillan is an 83-year-old resident of [facility], referred to the Wound Center for evaluation of an ulceration of the right lateral lower leg. The patient also has wounds of the right heel, right elbow, and sacrum. For the wounds of the right lateral lower leg, right elbow, and sacrum, the patient has been receiving dressing changes of Medihoney and Allevyn. The patient continues to utilize her Heelift boot for offloading of both the right heel and right lateral lower leg wounds. MRI of the right elbow was unable to be obtained because of contractures. PHYSICAL EXAMINATION: VITAL SIGNS: Temperature 98.1, pulse 55, respirations 17, and blood pressure 151/55. EXTREMITIES: An ulceration of the right lateral lower leg is present, which measures approximately 1.1 x 0.5 cm. An ulceration of the right heel is present, which measures approximately 4.0 x 4.5 cm. Almost all of the wound bed is covered by dry stable eschar. The wound of the right elbow is present, which measures approximately 2.5 x 2.3 cm. Granulation tissue is present within the wound margins. No bone is palpable within the wound margins on exam today. No purulent drainage is associated with the wound. No erythema of the skin surrounding the wound is present. No maceration of the skin of the periwound is noted. The dimensions of the wound at the time of the patient's last visit were approximately 3.0 x 3.2 cm. BACK: A wound of the presacral region is present, which measures approximately 1.0 x 0.5 cm. The dimensions of the wound at the time of the patient's last visit were approximately 1.0 x 2.0 cm. No purulent drainage is associated with the wound. No erythema of the skin surrounding the wound is present. No maceration of the skin of the periwound is noted. ASSESSMENT AND PLAN: 1. Ulceration of right lateral lower leg. The patient also has ulcerations of the right heel, right elbow, and sacrum. For the wounds of the right elbow, right lateral lower leg, and sacrum, dressing changes of Medihoney and Allevyn are to be performed every other day or alternatively 3 times per week after cleansing and irrigation at [facility]. The patient is to continue to utilize her Heelift boot at all times to facilitate offloading of the right heel and right lateral lower leg wounds. The right heel wound is to be kept clean and dry and covered with Kerlix. Because MRI of the right elbow was unable to be obtained, technetium triple phase bone scan may be obtained instead. 2. Blister of right posterior lateral foot. Purulent material contained within the blister was sent for aerobic and anaerobic cultures after the blister was unroofed. 3. Hypertension. 4. Diabetes mellitus. Accu-Cheks will be obtained at the time of the patient's clinic visits. 5. Congestive heart failure. 6. Hypothyroidism. 7. Cerebrovascular accident with dysphagia. 8. Seizure disorder, status post cerebrovascular accident. Job ID: [id number]
== END 2018-09-05 16:23 | disposition home or self-care (01) ==
LOC: WCC 16:22
PROVIDERS: ATTEND Family Medicine
DX: E11.621 Type 2 diabetes mellitus with foot ulcer (principal); E11.622 Type 2 diabetes mellitus with other skin ulcer; L97.419 Non-pressure chronic ulcer of right heel and midfoot with unspecified severity; L98.499 Non-pressure chronic ulcer of skin of other sites with unspecified severity; L98.419 Non-pressure chronic ulcer of buttock with unspecified severity; I11.0 Hypertensive heart disease with heart failure; I50.9 Heart failure, unspecified; E03.9 Hypothyroidism, unspecified; S90.821D Blister (nonthermal), right foot, subsequent encounter; I69.991 Dysphagia following unspecified cerebrovascular disease; R56.9 Unspecified convulsions
CPT/HCPCS: 87070; 87077; 87186; 87205; 97602; A4218

== ENCOUNTER 2018-09-25 09:28 | Outpatient (CLI) | payer MEDICARE, MEDICAID ==
--- NOTE | 2018-09-25 12:50 | NM ---
NUCLEAR MEDICINE BONE SCAN 3 PHASE RIGHT ELBOW: (Skeletal scintigraphy) DATE: 09/25/2018 HISTORY: 83-year-old female with pressure ulcer of right elbow. Rule out osteomyelitis. TECHNIQUE: IV injection of technetium 99m-MDP: 32.4 mCi. Dynamic flow and immediate blood pool activity scintigraphy of right elbow. 3 hour delayed scintigraphy of bilateral elbows in anterior and posterior views. FINDINGS: Because of patient's condition, a whole body bone scan could not be performed. There is a small focus of immediate blood pool uptake at the posterior aspect of the right elbow. The re is a small focus of significantly increased uptake in the posterior aspect of the right elbow compared to the left. IMPRESSION: Positive for osteoblastic activity at the right elbow, consistent with osteitis.
== END 2018-09-25 09:29 | disposition home or self-care (01) ==
LOC: NM 09:28
PROVIDERS: ATTEND Family Medicine
DX: L89.019 Pressure ulcer of right elbow, unspecified stage (principal); R94.8 Abnormal results of function studies of other organs and systems
CPT/HCPCS: 78315; A9503

== ENCOUNTER 2018-10-21 09:28 | Outpatient (CLI) | payer MEDICARE, MEDICAID ==
--- NOTE | 2018-10-21 10:39 | RAD ---
Radiograph right elbow 2 views: DATE: 10/21/2018 HISTORY: 83-year-old female with contracture and pain of right elbow. COMPARISON: No prior radiograph of right elbow. FINDINGS: Because of patient positioning, evaluation is limited. Displaced anterior and posterior fat-pad signs indicate distended joint capsule. There is a 5 x 8 mm ossific or calcific fragment in the soft tissues slightly posterior to the elbow as seen on the lateral view. This may or may not correspond t o a similar sized calcification projecting to the medial aspect of the elbow on the AP view. No acute fracture identified. No high-grade joint space narrowing or large osteophytes. Enthesophytes at the medial epicondyles and lateral condyle of the distal humerus, and at the dorsal surface of the base of the olecranon process, where there is nonspecific sclerosis. Soft tissue irregularity dorsal to the elbow. IMPRESSION: 1. Joint effusion. 2. Nonspecific finding of sclerosis at base of olecranon process..
== END 2018-10-21 09:29 | disposition home or self-care (01) ==
LOC: MRI 09:28 → RAD 09:29
PROVIDERS: ATTEND Internal Medicine Infectious Disease
DX: M25.521 Pain in right elbow (principal); M24.521 Contracture, right elbow; M89.9 Disorder of bone, unspecified; M25.421 Effusion, right elbow

== ENCOUNTER 2018-11-27 14:47 | Outpatient (CLI) | payer MEDICARE, MEDICAID ==
--- NOTE | 2018-11-27 16:01 | PRG ---
DATE OF SERVICE: 11/27/2018 HISTORY: Ms. Roxie Mcmillan is an 83-year-old resident of [facility], referred to the Wound Center for evaluation of an ulceration of the right lateral lower leg. The patient also has wounds of the right heel, right elbow, and sacrum. Since the patient's last visit, Ms. Mcmillan has been receiving dressing changes of Medihoney and Allevyn for the wounds of the right elbow, right lateral lower leg, and sacrum. For the right heel wound, the patient has been utilizing a Heelift boot. The Heelift boot was prescribed to facilitate offloading of the right heel and right lateral lower leg wounds. MRI of the right elbow was unable to be obtained because of contractures. The patient however has been seen by Dr. Mathieu Mays of Infectious Diseases. PHYSICAL EXAMINATION: VITAL SIGNS: Temperature 98.4, pulse 60, respirations 23, and blood pressure 145/81. EXTREMITIES: An ulceration of the right lateral lower leg is present, which measures approximately 0.8 x 0.7 cm. No purulent drainage is associated with the wound. No erythema of the skin surrounding the wound is present. No maceration of the skin of the periwound is noted. The right heel wound measures approximately 4.0 x 5.5 cm. The entire wound bed is covered by dry stable eschar. The wound of the right elbow has healed completely. The sacral wound has also healed completely. ASSESSMENT AND PLAN: 1. Ulceration of right lateral lower leg. As stated above, the ulcerations of the right elbow and sacrum have healed completely. The right heel ulceration measures approximately 4.0 x 5.5 cm, and the entire wound bed is covered by dry stable eschar. For the right lateral lower leg wound, dressing changes of Medihoney and Allevyn will be continued 3 times per week after cleansing and irrigation at [facility]. The patient is to continue to utilize her Heelift boot at all times to facilitate offloading of the right heel and right lateral lower leg wounds. The right heel wound is to be kept clean, dry, and covered with Kerlix or alternatively treated with Betadine. 2. Hypertension. 3. Diabetes mellitus. Accu-Cheks will be obtained at the time of the patient's clinic visits. 4. Congestive heart failure. 5. Hypothyroidism. 6. Cerebrovascular accident with dysphagia. 7. Seizure disorder, status post cerebrovascular accident. Job ID: [id number]
== END 2018-11-27 14:48 | disposition home or self-care (01) ==
LOC: WCC 14:47
PROVIDERS: ATTEND Family Medicine
DX: E11.621 Type 2 diabetes mellitus with foot ulcer (principal); L97.419 Non-pressure chronic ulcer of right heel and midfoot with unspecified severity; I11.0 Hypertensive heart disease with heart failure; I50.9 Heart failure, unspecified; E03.9 Hypothyroidism, unspecified; I69.991 Dysphagia following unspecified cerebrovascular disease; R56.9 Unspecified convulsions
CPT/HCPCS: A4218

== ENCOUNTER 2018-12-23 15:14 | Outpatient (CLI) | payer MEDICARE, MEDICAID ==
--- NOTE | 2018-12-23 16:14 | PRG ---
DATE OF SERVICE: 12/23/2018 HISTORY: Ms. Roxie Mcmillan is an 83-year-old resident of [facility], referred to the Wound Center for evaluation of an ulceration of the right lateral lower leg. The patient also has wounds of the right heel, right elbow, and sacrum. Since the patient's last visit, Ms. Mcmillan has been receiving dressing changes of Medihoney alginate and Allevyn for the wound of the right lateral lower leg. For the right heel wound, the patient has been utilizing a Heelift boot. The Heelift boot was prescribed to facilitate offloading of the right heel and right lateral lower leg wounds. PHYSICAL EXAMINATION: VITAL SIGNS: Temperature 98.1, pulse 61, respirations 22, blood pressure 140/70. EXTREMITIES: An ulceration of the right lateral lower leg is present, which measures approximately 3.0 x 1.4 cm. No purulent drainage is associated with the wound. No erythema of the skin surrounding the wound is present. No maceration of the skin of the periwound is noted. The right heel wound measures approximately 4.0 x 4.0 cm. The entire wound bed is covered by dry stable eschar. The wound of the right elbow and the sacral wound have healed completely and remain healed. ASSESSMENT AND PLAN: 1. Ulceration of right lateral lower leg. As stated above, the ulcerations of the right elbow and sacrum have healed completely and remain healed. The right heel ulceration measures approximately 4.0 x 4.0 cm and the entire wound bed is covered by dry stable eschar. For the right lateral lower leg wound, dressing changes of Medihoney alginate and Allevyn will be continued 3 times per week after cleansing and irrigation at [facility]. The patient is to continue to utilize her Heelift boot at all times to facilitate offloading of the right heel and right lateral lower leg wounds. The right heel wound is to be kept clean, dry, and covered with Kerlix or alternatively treated with Betadine. 2. Hypertension. 3. Diabetes mellitus. Accu-Cheks will be obtained at the time of the patient's clinic visits. 4. Congestive heart failure. 5. Hypothyroidism. 6. Cerebrovascular accident with dysphagia. 7. Seizure disorder, status post cerebrovascular accident. Job ID: [id number]
[2018-12-23] MEDS ORDERED: Sodium Chloride 0.9% 15 ML NEB ONE (17:26)
== END 2018-12-23 15:15 | disposition home or self-care (01) ==
LOC: WCC 15:14
PROVIDERS: ATTEND Family Medicine
DX: E11.622 Type 2 diabetes mellitus with other skin ulcer (principal); L97.919 Non-pressure chronic ulcer of unspecified part of right lower leg with unspecified severity; I11.0 Hypertensive heart disease with heart failure; I50.9 Heart failure, unspecified; E03.9 Hypothyroidism, unspecified; I69.991 Dysphagia following unspecified cerebrovascular disease; R13.10 Dysphagia, unspecified; G40.909 Epilepsy, unspecified, not intractable, without status epilepticus
CPT/HCPCS: 97602; A4218

== ENCOUNTER 2019-01-09 15:56 | Outpatient (CLI) | payer MEDICARE, MEDICAID ==
--- NOTE | 2019-01-09 17:30 | PRG ---
DATE OF SERVICE: 01/09/2019 HISTORY: Ms. Roxie Mcmillan is an 83-year-old, who presents to the Wound Center for evaluation of an ulceration of the right lateral lower leg. The patient also has wounds of the right heel and right elbow. Since the patient's last visit, Ms. Mcmillan has been receiving dressing changes of Medihoney alginate for the wound of the right lateral lower leg. For the right heel wound, the patient has been utilizing a Heelift boot. The patient is accompanied by 2 of her sons today. PHYSICAL EXAMINATION: VITAL SIGNS: Temperature 99.2, pulse 68, respirations 18, blood pressure 157/100. EXTREMITIES: An ulceration of the right lateral lower leg is present, which measures approximately 3.9 x 2.4 cm. No purulent drainage is associated with the wound. No erythema of the skin surrounding the wound is present. No maceration of the skin of the periwound is noted. The right heel wound measures approximately 4.0 x 3.5 cm. Purulent drainage associated with the wound was sent for aerobic and anaerobic cultures. A portion of the eschar at the periphery of the wound was excised with the use of scissors. The wound of the right elbow has healed completely and remains healed. ASSESSMENT AND PLAN: 1. Ulceration of right lateral lower leg. As stated above, the ulceration of the right elbow has healed completely and remains healed. The right heel ulceration measures approximately 4.0 x 3.5 cm and the purulent drainage associated with the wound was sent for aerobic and anaerobic cultures. A portion of the eschar at the periphery of the wound was excised with the use of scissors. For the right lateral lower leg wound and right heel wounds, dressing changes of Medihoney alginate will be continued 3 times per week after cleansing and irrigation at [facility]. The patient is to continue to utilize her Heelift boot at all times to facilitate offloading of the right heel and right lateral lower leg wounds. Mepilex Border will be utilized as a secondary dressing for the right lower leg wound. For the right heel wound, ABDs followed by Kerlix will be utilized as secondary dressings. 2. Hypertension. 3. Diabetes mellitus. Accu-Cheks will be obtained at the time of the patient's clinic visits. 4. Congestive heart failure. 5. Hypothyroidism. 6. Cerebrovascular accident with dysphagia. 7. Seizure disorder, status post cerebrovascular accident. Job ID: [id number]
[2019-01-09] MEDS ORDERED: Sodium Chloride 0.9% 15 ML NEB ONE (18:00)
== END 2019-01-09 15:57 | disposition home or self-care (01) ==
LOC: WCC 15:56
PROVIDERS: ATTEND Family Medicine
DX: E11.622 Type 2 diabetes mellitus with other skin ulcer (principal); L97.919 Non-pressure chronic ulcer of unspecified part of right lower leg with unspecified severity; I11.0 Hypertensive heart disease with heart failure; I50.9 Heart failure, unspecified; E03.9 Hypothyroidism, unspecified; I63.9 Cerebral infarction, unspecified; R13.10 Dysphagia, unspecified; G40.909 Epilepsy, unspecified, not intractable, without status epilepticus
CPT/HCPCS: 87070; 87077; 87186; 87205; 97602; A4218

== ENCOUNTER 2019-01-23 15:43 | Outpatient (CLI) | payer MEDICARE, MEDICAID ==
--- NOTE | 2019-01-23 16:01 | PRG ---
DATE OF SERVICE: 01/23/2019 HISTORY: Ms. Roxie Mcmillan is an 83-year-old, who presents to the Wound Center for evaluation of an ulceration of the right lateral lower leg. The patient also has a wound of the right elbow. Since the patient's last visit, Ms. Mcmillan has been receiving dressing changes of Medihoney Alginate for the wounds of her right lower extremity. Orders were also transmitted to [facility] for the patient to continue to utilize a Heelift boot for her right foot and lower leg at all times. The patient is accompanied by one of her sons today. PHYSICAL EXAMINATION: VITAL SIGNS: Temperature 99, pulse 59, respirations 18, and blood pressure 124/62. EXTREMITIES: An ulceration of the right lateral lower leg is present which measures approximately 4.5 x 4.2 cm. An ulceration of the right heel is present, which measures approximately 3.0 x 3.0 cm. Necrotic and nonviable tissue associated with the right heel ulceration was debrided with an excisional full-thickness debridement with the use of scissors. A small amount of purulent drainage is associated with the wound. No erythema of the skin surrounding the wound is present. No maceration of the skin of the periwound is noted. No significant edema of the right foot is present on exam today. The ulceration of the right lateral lower leg is granulating. No purulent drainage is associated with the wound. No erythema of the skin surrounding the wound is present. No maceration of the skin of the periwound is noted. No significant edema of the right lower leg is appreciated on today's exam. ASSESSMENT AND PLAN: 1. Ulceration of right lateral lower leg. The patient also has an ulceration of the right heel. Dressing changes of Medihoney Alginate will be continued for both wounds on a daily basis after cleansing and irrigation at [facility]. ABDs and Kerlix will be utilized as secondary dressings for the right heel wound. Mepilex Border will be utilized as a secondary dressing for the right lateral lower leg wound. The patient is to continue to utilize her Heelift boot at all times to facilitate offloading of the right heel and right lateral lower leg wounds. 2. Hypertension. 3. Diabetes mellitus. Accu-Cheks will be obtained at the time of the patient's clinic visits. 4. Congestive heart failure. 5. Hypothyroidism. 6. Cerebrovascular accident with dysphagia. 7. Seizure disorder, status post cerebrovascular accident. Job ID: [id number]
[2019-01-23] MEDS ORDERED: Sodium Chloride 0.9% 15 ML NEB ONE (22:41)
== END 2019-01-23 15:44 | disposition home or self-care (01) ==
LOC: WCC 15:43
PROVIDERS: ATTEND Family Medicine
DX: E11.621 Type 2 diabetes mellitus with foot ulcer (principal); E11.622 Type 2 diabetes mellitus with other skin ulcer; L97.419 Non-pressure chronic ulcer of right heel and midfoot with unspecified severity; L97.819 Non-pressure chronic ulcer of other part of right lower leg with unspecified severity; I11.0 Hypertensive heart disease with heart failure; I50.9 Heart failure, unspecified; E03.9 Hypothyroidism, unspecified; I69.991 Dysphagia following unspecified cerebrovascular disease; R56.9 Unspecified convulsions
CPT/HCPCS: A4218

== ENCOUNTER 2019-02-05 13:00 | Outpatient (CLI) | payer MEDICARE, MEDICAID ==
--- NOTE | 2019-02-05 17:19 | PRG ---
DATE OF SERVICE: 02/05/2019 SUBJECTIVE: Ms. Roxie Mcmillan is an 83-year-old, who presents to the Wound Center for evaluation of an ulceration of the right lateral lower leg. The patient also has an ulceration of the right heel. Since the patient's last visit, Ms. Mcmillan has been receiving dressing changes of Medihoney Alginate for both wounds on a daily basis after cleansing and irrigation at [facility]. Orders were also transmitted to [facility] for the patient to continue to utilize her Heelift boot at all times to facilitate offloading of the right heel and right lateral lower leg wounds. OBJECTIVE: VITAL SIGNS: Temperature 97.8, pulse 55, respirations 16, and blood pressure 126/46. EXTREMITIES: An ulceration of the right lateral lower leg is present, which measures approximately 4.7 x 3.5 cm. Necrotic and nonviable tissue present within the wound margins was debrided with an excisional full-thickness debridement with the use of scissors. No purulent drainage is associated with the wound. No erythema of the skin surrounding the wound is present. No maceration of the skin of the periwound is noted. No significant edema of the right lower extremity is present on exam today. An ulceration of the right heel is present, which measures approximately 3.0 x 3.0 cm. No purulent drainage is associated with the wound. No erythema of the skin surrounding the wound is present. No maceration of the skin of the periwound is noted. ASSESSMENT AND PLAN: 1. Ulceration of right lateral lower leg. The patient also has an ulceration of the right heel. Dressing changes of Medihoney Alginate will be continued for both wounds on a daily basis after cleansing and irrigation at [facility]. ABDs and Kerlix will be utilized as secondary dressings for the right heel wound. Mepilex Border will be utilized as a secondary dressing for the right lateral lower leg wound. The patient is to continue to utilize her Heelift boot at all times to facilitate offloading of the right heel and right lateral lower leg wounds. I will see Ms. Mcmillan again in 4 weeks. 2. Hypertension. 3. Diabetes mellitus. Accu-Cheks will be obtained at the time of the patient's clinic visits. 4. Congestive heart failure. 5. Hypothyroidism. 6. Cerebrovascular accident with dysphagia. 7. Seizure disorder, status post cerebrovascular accident. Job ID: [id number]
== END 2019-02-05 13:01 | disposition home or self-care (01) ==
LOC: WCC 13:00
PROVIDERS: ATTEND Family Medicine
DX: E11.622 Type 2 diabetes mellitus with other skin ulcer (principal); L97.919 Non-pressure chronic ulcer of unspecified part of right lower leg with unspecified severity; I11.0 Hypertensive heart disease with heart failure; I50.9 Heart failure, unspecified; E03.9 Hypothyroidism, unspecified; I63.9 Cerebral infarction, unspecified; R13.10 Dysphagia, unspecified; G40.909 Epilepsy, unspecified, not intractable, without status epilepticus

== ENCOUNTER 2019-02-20 16:07 | Outpatient (CLI) | payer MEDICARE, MEDICAID ==
[2019-02-20] MEDS ORDERED: Sodium Chloride 0.9% 15 ML NEB ONE (17:08)
--- NOTE | 2019-02-20 18:51 | PRG ---
DATE OF SERVICE: 02/20/2019 SUBJECTIVE: Ms. Roxie Mcmillan is an 83-year-old, who presents to the wound center for evaluation of an ulceration of the right lateral lower leg. The patient also has an ulceration of the right heel. Since the patient's last visit, Ms. Mcmillan has been receiving dressing changes of Medihoney alginate for both wounds on a daily basis after cleansing and irrigation at [facility]. Orders were also transmitted to [facility] for the patient to continue to utilize her Heelift boot at all times to facilitate offloading of the right heel and right lateral lower leg wound. OBJECTIVE: VITAL SIGNS: Temperature 99.4, pulse 64, respirations 18, and blood pressure 133/78. EXTREMITIES: An ulceration of the right lateral lower leg is present which measures approximately 5.0 x 3.1 cm. Necrotic and nonviable tissue present within the wound margins, was debrided with an excisional full-thickness debridement with the use of scissors. No purulent drainage is associated with the wound. No erythema of the skin surrounding the wound is present. No maceration of the skin of the periwound is noted. No significant edema of the right lower extremity is present on exam today. An ulceration of the right heel is present, which measures approximately 3.0 x 3.7 cm. Necrotic and nonviable tissue present within the wound margins, was debrided with an excisional full-thickness debridement with the use of scissors. A small amount of purulent drainage is associated with the wound. No erythema of the skin surrounding the wound is present. No maceration of the skin of the periwound is noted. ASSESSMENT AND PLAN: 1. Ulceration of right lateral lower leg. The patient also has an ulceration of the right heel. Dressing changes of Medihoney alginate will be continued for both wounds on a daily basis after cleansing and irrigation at [facility]. ABDs and Kerlix will be utilized as secondary dressings for the right heel wound. Mepilex Border will be utilized as the secondary dressing for the right lateral lower leg wound. The patient is to continue to utilize her Heelift boot at all times to facilitate offloading of the right heel and right lateral lower leg wounds. I will see Ms. Mcmillan again in 4 weeks. 2. Hypertension. 3. Diabetes mellitus. Accu-Cheks will be obtained at the time of the patient's clinic visits. 4. Congestive heart failure. 5. Hypothyroidism. 6. Cerebrovascular accident with dysphagia. 7. Seizure disorder, status post cerebrovascular accident. Job ID: [id number]
== END 2019-02-20 16:08 | disposition home or self-care (01) ==
LOC: WCC 16:07
PROVIDERS: ATTEND Family Medicine
DX: E11.622 Type 2 diabetes mellitus with other skin ulcer (principal); L97.919 Non-pressure chronic ulcer of unspecified part of right lower leg with unspecified severity; I11.0 Hypertensive heart disease with heart failure; I50.9 Heart failure, unspecified; E03.9 Hypothyroidism, unspecified; I69.391 Dysphagia following cerebral infarction; R13.10 Dysphagia, unspecified; G40.909 Epilepsy, unspecified, not intractable, without status epilepticus
CPT/HCPCS: A4218

== ENCOUNTER 2019-03-19 14:41 | Outpatient (CLI) | payer MEDICARE, MEDICAID ==
--- NOTE | 2019-03-19 16:08 | PRG ---
DATE OF SERVICE: 03/19/2019 HISTORY: Ms. Roxie Mcmillan is an 83-year-old, who presents to the Wound Center for evaluation of an ulceration of the right lateral lower leg. The patient also has an ulceration of the right heel. Since the patient's last visit, Ms. Mcmillan has been receiving dressing changes of Medihoney alginate for both wounds three times per week after cleansing and irrigation at [facility]. The patient has also been utilizing a Heelift boot to facilitate offloading of the right heel and right lateral lower leg wounds. PHYSICAL EXAMINATION: VITAL SIGNS: Pulse 55, respirations 16, and blood pressure 169/82. EXTREMITIES: An ulceration of the right lateral lower leg is present, which measures approximately 3.5 x 1.5 cm. Necrotic and nonviable tissue present within the wound margins was debrided with an excisional full-thickness debridement with the use of scissors. No purulent drainage is associated with the wound. No erythema of the skin surrounding the wound is present. No maceration of the skin of the periwound is noted. No significant edema of the right lower extremity is present on exam today. An ulceration of the right heel is also present, which measures approximately 2.0 x 2.5 cm. Necrotic and nonviable tissue present within the wound margins was debrided with an excisional full-thickness debridement with the use of scissors. A small amount of purulent drainage is associated with the wound. No erythema of the skin surrounding the wound is present. No maceration of the skin of the periwound is noted. ASSESSMENT AND PLAN: 1. Ulceration of right lateral lower leg. The patient also has an ulceration of the right heel. Dressing changes of Medihoney alginate will be continued for both wounds on a daily basis after cleansing and irrigation at [facility]. ABDs and Kerlix will be utilized as secondary dressings for the right heel wound. Mepilex Border will be utilized as the secondary dressing for the right lateral lower leg wound. The patient is to continue to utilize her Heelift boot at all times to facilitate offloading of the right heel and right lateral lower leg wounds. I will discuss the treatment plan with the patient's wound care nurse, Jenifer, at [facility], which will include a time for the patient to be seen again in the wound center. 2. Hypertension. 3. Diabetes mellitus. Accu-Cheks will be obtained at the time of the patient's clinic visits. 4. Congestive heart failure. 5. Hypothyroidism. 6. Cerebrovascular accident with dysphagia. 7. Seizure disorder, status post cerebrovascular accident. Job ID: [id number]
== END 2019-03-19 14:42 | disposition home or self-care (01) ==
LOC: WCC 14:41
PROVIDERS: ATTEND Family Medicine
DX: E11.621 Type 2 diabetes mellitus with foot ulcer (principal); L97.419 Non-pressure chronic ulcer of right heel and midfoot with unspecified severity; E11.622 Type 2 diabetes mellitus with other skin ulcer; L97.919 Non-pressure chronic ulcer of unspecified part of right lower leg with unspecified severity; E03.9 Hypothyroidism, unspecified; I11.0 Hypertensive heart disease with heart failure; I50.9 Heart failure, unspecified; I63.9 Cerebral infarction, unspecified; R13.10 Dysphagia, unspecified; G40.909 Epilepsy, unspecified, not intractable, without status epilepticus

== ENCOUNTER 2019-08-18 05:13 | Inpatient (IN) | payer MEDICARE, MEDICAID, OTHER ==
[2019-08-18] MEDS ORDERED: Lorazepam 2 MG/ML VIAL ONE (05:24)
[2019-08-18 05:52] LABS: #Basophils 0.1 thou/uL (0.0-0.2); #Eosinphils 0.2 thou/uL (0.0-0.7); #Lymphocytes 2.5 thou/uL (1.20-3.40); #Monocytes 0.5 thou/uL (0.11-0.59); #Neutrophils 4.8 thou/uL (1.40-6.50); %Eosinophils 2.3 % (0.0-10.0); %Neutrophils 59.8 % (42.0-75.0); Hemoglobin 13.5 g/dL (12.0-16.0); Mean Corpuscular HGB CONC 31.4 g/dL (32.0-36.0); Mean Platelet Volume 9.9 fL (7.4-10.4); Platelet Count 302 thou/uL (130-400); RBC Distribution Width 13.4 % (11.5-14.5); Red Blood Cell (RBC) Count 4.22 mill/uL (4.20-5.40)
[2019-08-18 05:55] LABS: Bacteria/HPF 3+ HPF (None Seen); Bilirubin Negative (Negative); Blood, Urine 2+ (Negative); Clarity Turbid (Clear); Glucose, Urine (Dipstick) Normal (Negative); Leukocyte 500 Leu/uL (Negative); Nitrite Negative (Negative); Protein, Urine (Dipstick) 30 mg/dL (Neg-Trace); RBC/HPF 21-50 HPF (0-3); Urobilinogen 6 mg/dL (Less than 2); WBC/HPF Greater than 50 HPF (0-3)
[2019-08-18 06:15] LABS: ALT (SGPT) 53 U/L (8-55); AST (SGOT) 66 U/L (5-34); Albumin 3.3 g/dL (3.4-4.8); Alkaline Phosphatase 395 U/L (40-110); Anion Gap 17 mmol/L (10-20); BUN (Urea Nitrogen) 36 mg/dL (9.8-20.1); Bilirubin, Total 0.6 mg/dL (0.2-1.2); Calc. Creatinine Clearance 0 mL/min (70-130); Calcium 9.4 mg/dL (7.8-10.44); Carbon Dioxide 22 mmol/L (23-31); Chloride 106 mmol/L (98-107); Estimated GFR-MDRD 85; Globulin 4.3 g/dL (2.4-3.5); Glucose 131 mg/dL (83-110); Magnesium 1.9 mg/dL (1.6-2.6); Potassium 4.4 mmol/L (3.5-5.1); Protein, Total 7.6 g/dL (6.0-8.3); Sodium 141 mmol/L (136-145)
[2019-08-18] MEDS ORDERED: cefTRIAXone\\ROCEPHIN 1 GM VIAL ONE (06:26)
--- NOTE | 2019-08-18 07:33 | CT ---
PRELIMINARY REPORT/[facility]/EMERGENCY AFTER HOURS PROCEDURE PROCEDURE: CT Head without Contrast . HISTORY: Hypoxia and altered mental status. TECHNIQUE: Axial images were performed without the administration of IV contrast with or without mult iplanar reformations . COMPARISON: 12/22/2017. FINDINGS: Brain shows no mass, hemorrhage, or acute stroke. Mild to moderate periventricular old microischemic changes. Unchanged encephalomalacia LEFT occipita l lobe. Moderate diffuse cerebral and cerebellar atrophy. Ventricles are normal size for patient's age. No acute skull or scalp abnormality. Some venous lakes involving the skull to the vertex that are un changed. Interval appearance of fluid level RIGHT maxillary sinus. Opacified RIGHT mastoid air cells since pr evious study IMPRESSION: No acute intracranial abnormality. Senescent changes. RIGHT maxillary sinusitis. Interval opacification of mastoid air cells on the RIGHT with no definite bony destruction visualized . ELECTRONICALLY SIGNED BY: Kris Coto MD August 18, 2019 6:24:40 AM CDT This report is intended for review by the ordering physician only, in accordance of law. If you recei ve this report in error, please call [facility] at [phone]. FINAL REPORT CT head noncontrast 08/18/2019 performed on emergency basis at 0616 hours HISTORY: Hypoxia. Altered mental status. COMPARISON: 12/22/2017. FINDINGS: Agree with the preliminary report by Dr. Coto from [facility]. No acute intracranial abnormali ties are demonstrated. Chronic-type findings are stable. Right maxillary sinusitis has developed. Code QA. Transcribed Date/Time: 08/18/2019 7:39 AM
--- NOTE | 2019-08-18 07:42 | RAD ---
Chest one view HISTORY: Hypoxia. COMPARISON: 01/23/2018. FINDINGS: Cardiac silhouette is magnified by projection. Pulmonary vasculature is unremarkable. Shall ow inspiration accentuates pulmonary markings. Soft tissue density prominence to the right of the upper tracheal air column and at the right suprahi lar level. Possibly vascular and/or related to the thyroid. Right hemidiaphragm remains elevated. No lobar consolidation is apparent. No evidence of pneumothorax. IMPRESSION : Soft tissue density prominence to the right upper mediastinum. Possibly related in part to rotation. Please consider upright PA and lateral views of the chest when patient can undergo that exam.
--- NOTE | 2019-08-18 08:21 | PDOC.EVN ---
Event Note - Event Note Event Note: patient seen and evaluated. I have discussed the case with Dr. Nixon. Patient sent from [facility] with increased SOB. Found to be hypoxic by EMS which resolved with non-rebreather. During exam patient having right arm fasiculations. Unable to determine level of consciousness 2/2 baseline mentation. exam otherwise benign. EKG WNL. Imaging WNL. Labs show UA concerning for UTI, elevated BNP. IMCU admission for Acute hypoxic respiratory distress 2/2 sepsis 2/2 UTI. COVID r/o pending. Will continue rocephin, add vanc. checking prolactin level due to concern for possible focal seizure. Will check keppra and valproic acid level. Consider neurology consultation if no improvement in fasciculations. Dr. Nixon will call and discuss goals of care with patient's family today and verify DNAR status. OOH DNR sent with patient.
[2019-08-18 09:19] LABS: Lactic Acid 2.4 mmol/L (0.5-2.2)
[2019-08-18] MEDS ORDERED: Ondansetron PF 4 MG/2 ML Vial IVP PRN (09:52)
[2019-08-18] MEDS ORDERED: VALPROIC ACID 1000 MG PER TUBE SCH (09:52)
[2019-08-18] MEDS ORDERED: Non-Formulary Item 1 EACH (Quetiapine Fumarate [Seroquel] 50 MG) PER TUBE SCH (09:52)
[2019-08-18] MEDS ORDERED: Acetaminophen 325 MG TAB PER TUBE PRN (09:52)
[2019-08-18] MEDS ORDERED: HumaLOG 300 UNITS/3 ML VIAL SC PRN ×2 (09:52)
[2019-08-18] MEDS ORDERED: Non-Formulary Item 1 EACH (Arginine/Ascorbate Sod/Vite Ac [Arginaid Powder] 1 PACKET) PER TUBE SCH (09:52)
[2019-08-18] MEDS ORDERED: POLYVINYL ALCOHOL EA EYE PRN (09:52)
[2019-08-18] MEDS ORDERED: Dextrose 5% in Water 1,000 ML IV PRN (09:52)
[2019-08-18] MEDS ORDERED: Dextrose 50% Abboject 50 ML SYRINGE SLOW IVP PRN (09:52)
[2019-08-18 10:03] LABS: SARS-CoV-2 MS2 Positive; SARS-CoV-2 N Gene Negative; SARS-CoV-2 S Gene Negative; SARS-CoV-2 orf1ab Negative
[2019-08-18] MEDS ORDERED: levETIRAcetam In NaCl (Iso-Os) 1,000 MG in Premix Bag 1 BAG IVPB SCH (10:15)
[2019-08-18] MEDS ORDERED: Artificial Tears 18 DROP/0.9 ML EA EYE PRN (10:16)
[2019-08-18] MEDS ORDERED: Aspirin Chewable 81 MG TAB ONE (10:19)
[2019-08-18] MEDS ORDERED: Amlodipine 5 MG TAB ONE (10:19)
--- NOTE | 2019-08-18 11:45 | PDOC.FPRHP ---
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 Per the ER staff and custodial nurse, during evening rounds at the [facility] the patient reportedly felt warm to the nurse and was in respiratory distress. They then checkher her vitals and she was tachypneic, hypoxic into the 60s and febrile. They placed her on O2 & could not get her sats above the 80s on 10L of O2 so she was then sent to the ED for further evaluation. Also of note, per nursing staff at the [facility], the patient was in her usual state of health earlier in the day on Sunday. Of note, due to the patient's baseline aphasia & no family being present no history or ROS could be obtained from the patient. ED Course: AM per tube meds: amio 200mg, eliquis 5mg, keppra 500mg, norvasc 5mg, vit C 500mg 1g IV rocephin, 1L NS, 2mg ativan - Allergies/Adverse Reactions Allergies Allergy/AdvReac Type Severity Reaction Status Date / Time No Known Drug Allergies Allergy Verified 06/24/19 14:18 - Home Medications Medication Instructions Recorded Confirmed Type Pravastatin Sodium 20 mg PER TUBE HS 04/10/13 12/22/17 History Sertraline HCl 50 mg PER TUBE HS 06/11/17 12/22/17 History metFORMIN [Glucophage] 500 mg PER TUBE BID-WM 06/11/17 12/22/17 History Carvedilol [Coreg] 3.125 mg PER TUBE BID 08/23/17 12/22/17 History Acetaminophen [Tylenol Extra 1 - 2 tab PER TUBE Q4HR PRN 12/16/17 12/22/17 History Strength] Amlodipine Besylate [amLODIPine 5 mg PER TUBE BID 12/16/17 12/22/17 History Besylate] Arginine/Ascorbate Sod/Bernadine Ac 1 packet PER TUBE BID 12/16/17 12/22/17 History [Arginaid Powder] Ascorbic Acid [Vitamin C] 500 mg PER TUBE BID 12/16/17 12/22/17 History Aspirin Chewable [Aspirin Chewable 81 mg PER TUBE DAILY 12/16/17 12/22/17 History Tablet] Calcium Carbonate/Vitamin D3 1 - 2 tablet PER TUBE Q6H PRN 12/16/17 12/22/17 History [Calcium 500 mg Chewable Tablet] Gabapentin 200 mg PER TUBE TID 12/16/17 12/22/17 History Glucagon 1 mg SC ASDIR PRN 12/16/17 12/22/17 History Multivit,Tx with Iron,Minerals 1 tablet PER TUBE DAILY 12/16/17 12/22/17 History [Therems-M] Polyvinyl Alcohol [Artificial 1 drop EA EYE BID PRN 12/16/17 12/22/17 History Tears] QUEtiapine Fumarate [Seroquel] 50 mg PER TUBE BID 12/16/17 12/22/17 History Sennosides [Senna] 2 tab PER TUBE BID 12/16/17 12/22/17 History Valproic Acid (As Sodium Salt) 1,000 mg PER TUBE BID 12/16/17 12/22/17 History [Valproic Acid] levETIRAcetam [Keppra Oral 5 ml PER TUBE BID 12/16/17 12/22/17 History Solution] Acetaminophen [Tylenol Regular 650 mg PO Q4H PRN tab 12/21/17 12/22/17 Rx Strength] Docusate [Colace] 100 mg PO BID cap 12/21/17 12/22/17 Rx Amiodarone [Cordarone] 400 mg PO BID #0 tab 12/25/17 Rx Amlodipine [Norvasc] 5 mg PER TUBE BID tab 12/25/17 Rx Apixaban [Eliquis] 5 mg PO BID tab 12/25/17 Rx - History PMHx: DMII, CVA w/ aphasia & PEG tube in place & R-sided hemiplegia with contractures, depression, seizure/convulsion disorder, CHF, chronic pressure ulcer in RLE PSHx: PEG tube placement FHx: Unknown Social: Unknown - Review of Systems ROS unobtainable: due to mental status - Vital signs BP: 153/90 HR: 65 RR: 30 Tmax: 100.6F Pox: 100% on non-rebreather Wt: 70 kg - Physical Exam Constitutional: other (mild distress 2/2 persistent twitching) HEENT: normocephalic and atraumatic Neck: supple Heart: RRR, normal S1/S2, no edema Lungs: CTAB, good air movement, no rales/rhonchi, no wheezing, no retractions, other (on non-rebreather) Abdomen: soft, bowel sounds present, no masses/distention, other (PEG tube in place) Musculoskeletal: other (R-sided contractures with boot on RLE) -Neurological: persistent full body twitching for duration of exam Heme/Lymphatic: no unusual bruising or bleeding Psychiatric: other (unable to assess 2/2 AMS & aphasia) FMR H&P: Results - Labs Result Diagrams: 08/18/19 05:37 08/19/19 05:46 Lab results: WBC 8.0 thou/uL (4.8-10.8) 08/18/19 05:37 Hgb 13.5 g/dL (12.0-16.0) 08/18/19 05:37 Hct 43.0 % (36.0-47.0) 08/18/19 05:37 MCV 102.0 fL (78.0-98.0) H 08/18/19 05:37 Plt Count 302 thou/uL (130-400) 08/18/19 05:37 Neutrophils % 59.8 % (42.0-75.0) 08/18/19 05:37 Sodium 141 mmol/L (136-145) 08/18/19 05:37 Potassium 4.4 mmol/L (3.5-5.1) 08/18/19 05:37 Chloride 106 mmol/L (98-107) 08/18/19 05:37 Carbon Dioxide 22 mmol/L (23-31) L 08/18/19 05:37 BUN 36 mg/dL (9.8-20.1) H 08/18/19 05:37 Creatinine 0.78 mg/dL (0.6-1.1) 08/18/19 05:37 Glucose 131 mg/dL (83-110) H 08/18/19 05:37 Lactic Acid 2.4 mmol/L (0.5-2.2) H 08/18/19 08:33 Calcium 9.4 mg/dL (7.8-10.44) 08/18/19 05:37 Total Bilirubin 0.6 mg/dL (0.2-1.2) 08/18/19 05:37 AST 66 U/L (5-34) H 08/18/19 05:37 ALT 53 U/L (8-55) 08/18/19 05:37 Alkaline Phosphatase 395 U/L (40-110) H 08/18/19 05:37 C-Reactive Protein 4.24 mg/dL (= or < 0.5) H 08/18/19 05:37 B-Natriuretic Peptide 637.4 pg/mL (0-100) H 08/18/19 05:37 Serum Total Protein 7.6 g/dL (6.0-8.3) 08/18/19 05:37 Albumin 3.3 g/dL (3.4-4.8) L 08/18/19 05:37 Urine Ketones Negative mg/dL (Negative) 08/18/19 05:36 Urine Blood 2+ (Negative) A 08/18/19 05:36 Urine Nitrite Negative (Negative) 08/18/19 05:36 Ur Leukocyte Esterase 500 Rosa Elena/uL (Negative) A 08/18/19 05:36 Urine RBC 21-50 HPF (0-3) A 08/18/19 05:36 Urine WBC Greater than 50 HPF (0-3) A 08/18/19 05:36 Ur Squamous Epith Cells 4-6 HPF (0-3) A 08/18/19 05:36 Urine Bacteria 3+ HPF (None Seen) A 08/18/19 05:36 - EKG Interpretation EKG: NSR @ 67 bpm - Radiology Interpretation CT scan - head Status: image reviewed by me, report reviewed by me (R maxillary sinusitis) Chest x-ray Status: image reviewed by me, report reviewed by me (no consolidation or pneumothorax) FMR H&P: A/P - Problem List (1) Acute respiratory failure Current Visit: Yes Status: Resolved Code(s): J96.00 - ACUTE RESPIRATORY FAILURE, UNSP W HYPOXIA OR HYPERCAPNIA Qualifiers: Respiratory failure complication: unspecified whether with hypoxia or hypercapnia Qualified Code(s): J96.00 - Acute respiratory failure, unspecified whether with hypoxia or hypercapnia (2) Pressure ulcer Current Visit: Yes Status: Chronic Code(s): L89.90 - PRESSURE ULCER OF UNSPECIFIED SITE, UNSPECIFIED STAGE Qualifiers: Pressure injury location: heel Pressure injury stage: unstageable Laterality: right Qualified Code(s): L89.610 - Pressure ulcer of right heel, unstageable (3) Sinusitis Current Visit: Yes Status: Acute Code(s): J32.9 - CHRONIC SINUSITIS, UNSPECIFIED Qualifiers: Sinusitis location: maxillary Chronicity: acute (4) Heart failure Current Visit: No Status: Chronic Code(s): I50.9 - HEART FAILURE, UNSPECIFIED Qualifiers: Heart failure chronicity: unspecified Comment: Continue with IV lasix if any worseing SOB. (5) Atrial fibrillation Current Visit: No Status: Chronic Code(s): I48.91 - UNSPECIFIED ATRIAL FIBRILLATION Comment: Rate controlled. Continue Coreg. stop cardizem gtt in AM and go to po (6) CKD (chronic kidney disease) stage 2, GFR 60-89 ml/min Current Visit: No Status: Chronic Code(s): N18.2 - CHRONIC KIDNEY DISEASE, STAGE 2 (MILD) (7) CVA (cerebral vascular accident) Current Visit: No Status: Chronic Code(s): I63.9 - CEREBRAL INFARCTION, UNSPECIFIED Qualifiers: CVA mechanism: unspecified Qualified Code(s): I63.9 - Cerebral infarction, unspecified Comment: Stable. Has a h/o Ischemic R frontal involvement with expressive dysphasia and dysarthria. Continue ASA 325mg po daily. (8) DM2 (diabetes mellitus, type 2) Current Visit: No Status: Chronic Qualifiers: Diabetes mellitus skilled nursing insulin use: without heater room helper use Diabetes mellitus complication status: with circulatory complication Diabetes mellitus complication detail: with peripheral angiopathy with gangrene Qualified Code(s ): E11.52 - Type 2 diabetes mellitus with diabetic peripheral angiopathy with gangrene (9) HTN (hypertension) Current Visit: No Status: Chronic Code(s): I10 - ESSENTIAL (PRIMARY) HYPERTENSION Qualifiers: Hypertension type: essential hypertension Qualified Code(s): I10 - Essential (primary) hypertension Comment: Fairly well controlled. (10) Seizure disorder Current Visit: No Status: Chronic Code(s): G40.909 - EPILEPSY, UNSP, NOT INTRACTABLE, WITHOUT STATUS EPILEPTICUS Comment: Has remained seizure free. keppra level normal - Plan 84YOF who was brought from the [facility] for evaluation for acute hypoxic respiratory failure with fever. Acute hypoxic respiratory failure: - In respiratory distress & hypoxic in arrival. CXR w/ NAF to explain this. Requiring non-rebreather to maintain sats. COVID-19 test & flu swabs pending. Urine & Bld cultures pending. - Will wean O2 as tolerated by patient. - Continue rocephin for now given dirty UA. PUI for COVID-19 infection: - test pending due to problem #1. - droplet precautions - COVID labs & procal pending. UTI: - UA dirty on admission. Will continue rocephin pending culture results. Sinusitis: - Noted on head CT done an presentation. Rocephin to cover for now. Seizure disorder: - Patient seizing/convulsing on exam s/p 2mg ativan in the ED. Will check keppra & valproate levels as these are her home meds & load with keppra if subtherapeutic. Prolactin also pending. Will consider a neurology consult if elevated as could also be suffering from a new acute CVA. Head CT w/ NAF on presentation. CHF: - Not in acute exacerbation. Resume home meds per tube. QD weights, strict I&Os. HTN: - Resume home meds per tube. DMII: - Not on meds. Diabetic tube feeds and mild & HS SSI. ACHS accuchecks. h/o CVA with PEG tube & R-sided weakness & contractures: - Aware, will resume home meds & PT & OT while inpatient. CM consulted to reach out to family regarding getting hospice on board upon return to [facility]. Chronic compression ulcer: - Aware, will consult WC. Boot in place on RLE. PCP: June CODE STATUS: FULL CODE IVFs: SL Abx: Rocephin (08/17) Diet: Tube feeds CC & HH VTE PPX: Eliquis GI PPX: None Dispo: Admit to IMCU for close monitoring, respiratory support, & continued IV abx pending cultures. FMR H&P: Upper Level - Plan Date/Time: 08/18/19 1145 I, [], have evaluated this patient and agree with findings/plan as outlined by biology intern resident. Pertinent changes/additions are listed here. Addendum - Attending - Attending Attestation Date/Time: 08/19/19 4017 I personally evaluated the patient and discussed the management with Dr. Nixon. I agree with the History, Examination, Assessment and Plan documented above with any addition or exceptions noted below. See my event note for details.
[2019-08-18] MEDS: Amiodarone 200 MG TAB PO SCH ×2 (12:31→21:41)
[2019-08-18] MEDS: Aspirin Chewable 81 MG TAB PER TUBE SCH (12:32)
[2019-08-18] MEDS: levETIRAcetam 100 mg/ml Oral Solution PER TUBE SCH ×2 (12:32→21:43)
[2019-08-18] MEDS: Apixaban 5 MG TAB PO SCH ×2 (12:32→21:41)
[2019-08-18] MEDS: Amlodipine 5 MG TAB PER TUBE SCH ×2 (12:32→21:39)
[2019-08-18] MEDS: Ascorbic Acid 500 mg Chewable Tablet PER TUBE SCH ×2 (12:32→21:41)
[2019-08-18 14:06] VITALS: BMI 25.9
[2019-08-18] MEDS: Vancomycin 1 GM in Premix Bag 1 BAG IVPB SCH (18:14)
[2019-08-18] MEDS: Docusate Sodium 100 MG/10 ML UDCUP PER TUBE SCH (21:41)
[2019-08-18] MEDS: Valproate Sodium 250 mg/5 ml UD Cup PER TUBE SCH (21:42)
[2019-08-18] MEDS: ARGINAID PER TUBE SCH (22:08)
--- NOTE | 2019-08-19 06:15 | PDOC.FM ---
- Subjective Subjective: Temp down to 96.6F overnight, otherwise SHYANNE. Patient resting comfortably on exam on RA. - Objective MAR Reviewed: Yes Vital Signs & Weight: Vital Signs (12 hours) Temp Pulse BP Pulse Ox 08/19/19 04:05 96.6 F L 08/18/19 23:31 96.0 F L 08/18/19 21:39 62 138/113 H 08/18/19 20:00 100 08/18/19 19:26 98.4 F Weight Weight 70.76 kg Most Recent Monitor Data Heart Rate from ECG 53 NIBP 115/58 NIBP BP-Mean 77 Respiration from ECG 12 SpO2 100 I&O: 08/17/19 08/18/19 08/19/19 06:59 06:59 06:59 Intake Total 150 Output Total 100 Balance 50 Result Diagrams: 08/18/19 05:37 08/19/19 05:46 Phys Exam - Physical Examination Constitutional: NAD HEENT: moist MMs Neck: supple, full ROM Respiratory: no wheezing, no rales, no rhonchi, clear to auscultation bilateral Cardiovascular: RRR, no significant murmur Gastrointestinal: soft, no distention, positive bowel sounds PEG tube in place Musculoskeletal: no edema RLE boot in place w/ unstageable pressure ulcer on R heel Skin: no rash Dx/Plan (1) Acute respiratory failure Code(s): J96.00 - ACUTE RESPIRATORY FAILURE, UNSP W HYPOXIA OR HYPERCAPNIA Status: Resolved Qualifiers: Respiratory failure complication: unspecified whether with hypoxia or hypercapnia Qualified Code(s): J96.00 - Acute respiratory failure, unspecified whether with hypoxia or hypercapnia (2) Pressure ulcer Code(s): L89.90 - PRESSURE ULCER OF UNSPECIFIED SITE, UNSPECIFIED STAGE Status : Chronic Qualifiers: Pressure injury location: heel Pressure injury stage: unstageable Laterality: right Qualified Code(s): L89.610 - Pressure ulcer of right heel, unstageable (3) Sinusitis Code(s): J32.9 - CHRONIC SINUSITIS, UNSPECIFIED Status: Acute Qualifiers: Sinusitis location: maxillary Chronicity: acute (4) Heart failure Code(s): I50.9 - HEART FAILURE, UNSPECIFIED Status: Chronic Qualifiers: Heart failure chronicity: unspecified (5) Atrial fibrillation Code(s): I48.91 - UNSPECIFIED ATRIAL FIBRILLATION Status: Chronic (6) CKD (chronic kidney disease) stage 2, GFR 60-89 ml/min Code(s): N18.2 - CHRONIC KIDNEY DISEASE, STAGE 2 (MILD) Status: Chronic (7) CVA (cerebral vascular accident) Code(s): I63.9 - CEREBRAL INFARCTION, UNSPECIFIED Status: Chronic Qualifiers: CVA mechanism: unspecified Qualified Code(s): I63.9 - Cerebral infarction, unspecified (8) DM2 (diabetes mellitus, type 2) Status: Chronic Qualifiers: Diabetes mellitus dedicated intermodal truck driver insulin use: without mcfp use Diabetes mellitus complication status: with circulatory complication Diabetes mellitus complication detail: with peripheral angiopathy with gangrene Qualified Code(s ): E11.52 - Type 2 diabetes mellitus with diabetic peripheral angiopathy with gangrene (9) HTN (hypertension) Code(s): I10 - ESSENTIAL (PRIMARY) HYPERTENSION Status: Chronic Qualifiers: Hypertension type: essential hypertension Qualified Code(s): I10 - Essential (primary) hypertension (10) Seizure disorder Code(s): G40.909 - EPILEPSY, UNSP, NOT INTRACTABLE, WITHOUT STATUS EPILEPTICUS Status: Chronic (11) UTI (urinary tract infection) Status: Acute Qualifiers: Urinary tract infection type: acute cystitis Hematuria presence: with hematuria Qualified Code(s): N30.01 - Acute cystitis with hematuria - Plan Plan: 84YOF who was brought from the [facility] for evaluation for acute hypoxic respiratory failure with fever. Acute hypoxic respiratory failure, improving: - In respiratory distress & hypoxic in arrival. CXR w/ NAF to explain this. Requiring non-rebreather to maintain sats. COVID-19 test negative. - Has been weaned off all O2 since admission & maintaining adequate sats. PUI for COVID-19 infection, resolved: - negative test yesterday AM Bacteruria: - UA dirty on admission. Cx growing 25-50k cfus of E coli R to fluoroquinolones & amp & unasyn so not true UTI. Sinusitis: - Noted on head CT done an presentation. Will consider continuing rocephin for this problem only for now pending wound cultures from foot vs. transition to an agent that can be given by tube. Unstageable R heel ulcer: - Reported h/o chronic R heel ulcer per [facility] nursing staff & patient arrived with decompression boot in place. Possible etiology of decompensation as WC photos show unstageable ulcer with significant purulent d/c. Cx pending. Continue vanc pending sensitivities. Seizure disorder: - Patient seizing/convulsing on exam s/p 2mg ativan in the ED. Keppra & valproate levels both subtherapeutic & prolactin elevated. Was given ~1500mg Keppra yesterday AM & no convulsions on evaluation later in the day or overnight per nursing staff. Will consider a neurology consult this AM vs. trying to optimize home meds. Head CT w/ NAF on presentation. Continue seizure precautions. CHF: - Not in acute exacerbation. Resume home meds per tube. QD weights, strict I&Os. HTN: - Resume home meds per tube. DMII: - Not on meds. Diabetic tube feeds and mild & HS SSI. ACHS accuchecks. h/o CVA with PEG tube & R-sided weakness & contractures: - Aware, will resume home meds & PT & OT while inpatient. CM & PC consulted to reach out to family regarding getting hospice on board upon return to [place]. PCP: June CODE STATUS: FULL CODE IVFs: SL Abx: Rocephin & vancomycin (08/17) Diet: Tube feeds CC & HH VTE PPX: Eliquis GI PPX: None Dispo: Consider transitioning stroke floor today for continued IV abx pending cultures. Addendum - Attending - Attending Attestation Date/Time: 08/19/19 9529 I personally evaluated the patient and discussed the management with Dr. Nixon I agree with the History, Examination, Assessment and Plan documented above with any addition or exceptions noted below. 84YOF admitted for fever and acute hypoxic resp failure. Resistant e.coli in the urine, continue antibiotics. Sinusitis, heel ulcer, await cx results. Load with anticonvulsants as med levels were low upon presentation. No seizure episodes overnight. Wound care consulted. Remain inpatient transfer to medical. Previously pursued hospice care, palliative care consulted to re-engage with family regarding goals of care. RA Sorenson
[2019-08-19] MEDS: cefTRIAXone\\ROCEPHIN 1 GM in Sodium Chloride 0.9% 100 ML IVPB SCH (06:20)
[2019-08-19 06:21] LABS: Lactic Acid 1.6 mmol/L (0.5-2.2)
[2019-08-19 06:25] LABS: ALT (SGPT) 41 U/L (8-55); AST (SGOT) 60 U/L (5-34); Albumin 3.1 g/dL (3.4-4.8); Alkaline Phosphatase 327 U/L (40-110); Anion Gap 16 mmol/L (10-20); BUN (Urea Nitrogen) 27 mg/dL (9.8-20.1); Bilirubin, Total 0.7 mg/dL (0.2-1.2); Calc. Creatinine Clearance 78 mL/min (70-130); Calcium 8.6 mg/dL (7.8-10.44); Carbon Dioxide 22 mmol/L (23-31); Chloride 111 mmol/L (98-107); Estimated GFR-MDRD Greater than 90; Globulin 3.4 g/dL (2.4-3.5); Glucose 91 mg/dL (83-110); Protein, Total 6.5 g/dL (6.0-8.3); Sodium 145 mmol/L (136-145)
[2019-08-19] MEDS ORDERED: levETIRAcetam 500 mg/5 ml Oral Solution PO SCH ×2 (09:00→12:30)
[2019-08-19] MEDS: Valproate Sodium 250 mg/5 ml UD Cup PER TUBE SCH ×2 (09:07→22:08)
[2019-08-19] MEDS: Apixaban 5 MG TAB PO SCH ×2 (09:08→21:57)
[2019-08-19] MEDS: Amiodarone 200 MG TAB PO SCH (09:08)
[2019-08-19] MEDS: Aspirin Chewable 81 MG TAB PER TUBE SCH (09:08)
[2019-08-19] MEDS: Ascorbic Acid 500 mg Chewable Tablet PER TUBE SCH ×2 (09:08→21:57)
[2019-08-19] MEDS: Amlodipine 5 MG TAB PER TUBE SCH ×2 (09:08→21:57)
[2019-08-19] MEDS: ARGINAID PER TUBE SCH ×2 (09:08→22:09)
[2019-08-19] MEDS ORDERED: Valproate Sodium 250 mg/5 ml UD Cup PER TUBE SCH (11:30)
[2019-08-19] MEDS ORDERED: levETIRAcetam 100 mg/ml Oral Solution PER TUBE SCH (11:30)
[2019-08-19] MEDS: Vancomycin 1 GM in Premix Bag 1 BAG IVPB SCH (15:00)
--- NOTE | 2019-08-19 21:14 | EKG ---
Test Reason : Blood Pressure : / mmHG Vent. Rate : 044 BPM Atrial Rate : 044 BPM P-R Int : 182 ms QRS Dur : 104 ms QT Int : 540 ms P-R-T Axes : 067 004 033 degrees QTc Int : 461 ms Marked sinus bradycardia Nonspecific T wave abnormality Abnormal ECG When compared with ECG of 18-AUG-2019 05:52, (Unconfirmed) Vent. rate has decreased BY 23 BPM Nonspecific T wave abnormality now evident in Inferior leads Nonspecific T wave abnormality, worse in Anterolateral leads Confirmed by Xiomara CHRISTENSEN ([id number]) on 08/19/2019 9:14:01 PM Referred By: MARK OakleyR Confirmed By:Xiomara CHRISTENSEN
[2019-08-19] MEDS: Amiodarone 200 MG TAB PER TUBE SCH (21:56)
[2019-08-19] MEDS: Docusate Sodium 100 MG/10 ML UDCUP PER TUBE SCH (21:58)
[2019-08-19] MEDS: levETIRAcetam 500 mg/5 ml Oral Solution PO SCH (22:08)
--- NOTE | 2019-08-20 07:28 | PDOC.FM ---
- Subjective Subjective: NAEO other than persistent bradycardia in the 50s. Patient resting comfortably on RA on exam. - Objective MAR Reviewed: Yes Vital Signs & Weight: Vital Signs (12 hours) Temp Pulse Resp BP Pulse Ox 08/20/19 03:43 98.1 F 54 L 17 146/89 H 100 08/19/19 21:57 51 L 08/19/19 19:38 97.9 F 51 L 14 123/59 L 100 Weight Admit Weight 70.806 kg Weight 70.76 kg Most Recent Monitor Data Heart Rate from ECG 44 NIBP 121/55 NIBP BP-Mean 77 Respiration from ECG 15 SpO2 100 I&O: 08/19/19 08/20/19 08/21/19 06:59 06:59 06:59 Intake Total 250 1648 Output Total 350 1 Balance -100 1647 Result Diagrams: 08/18/19 05:37 08/19/19 05:46 Phys Exam - Physical Examination Constitutional: NAD HEENT: moist MMs Neck: supple, full ROM Respiratory: no wheezing, no rales, no rhonchi, clear to auscultation bilateral Cardiovascular: no significant murmur bradycardic with regular rhythm Gastrointestinal: soft PEG tube in place Musculoskeletal: no edema RLE pressure ulcer boot w/ clean & dry dressings in place contractures in B/L UEs w/ limited movement of all limbs/bed bound Skin: no rash, normal turgor Dx/Plan (1) Acute respiratory failure Code(s): J96.00 - ACUTE RESPIRATORY FAILURE, UNSP W HYPOXIA OR HYPERCAPNIA Status: Resolved Qualifiers: Respiratory failure complication: unspecified whether with hypoxia or hypercapnia Qualified Code(s): J96.00 - Acute respiratory failure, unspecified whether with hypoxia or hypercapnia (2) Pressure ulcer Code(s): L89.90 - PRESSURE ULCER OF UNSPECIFIED SITE, UNSPECIFIED STAGE Status : Chronic Qualifiers: Pressure injury location: heel Pressure injury stage: unstageable Laterality: right Qualified Code(s): L89.610 - Pressure ulcer of right heel, unstageable (3) Sinusitis Code(s): J32.9 - CHRONIC SINUSITIS, UNSPECIFIED Status: Acute Qualifiers: Sinusitis location: maxillary Chronicity: acute (4) Heart failure Code(s): I50.9 - HEART FAILURE, UNSPECIFIED Status: Chronic Qualifiers: Heart failure chronicity: unspecified (5) Atrial fibrillation Code(s): I48.91 - UNSPECIFIED ATRIAL FIBRILLATION Status: Chronic (6) CKD (chronic kidney disease) stage 2, GFR 60-89 ml/min Code(s): N18.2 - CHRONIC KIDNEY DISEASE, STAGE 2 (MILD) Status: Chronic (7) CVA (cerebral vascular accident) Code(s): I63.9 - CEREBRAL INFARCTION, UNSPECIFIED Status: Chronic Qualifiers: CVA mechanism: unspecified Qualified Code(s): I63.9 - Cerebral infarction, unspecified (8) DM2 (diabetes mellitus, type 2) Status: Chronic Qualifiers: 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 Diabetes mellitus complication status: with circulatory complication Diabetes mellitus complication detail: with peripheral angiopathy with gangrene Qualified Code(s ): E11.52 - Type 2 diabetes mellitus with diabetic peripheral angiopathy with gangrene (9) HTN (hypertension) Code(s): I10 - ESSENTIAL (PRIMARY) HYPERTENSION Status: Chronic Qualifiers: Hypertension type: essential hypertension Qualified Code(s): I10 - Essential (primary) hypertension (10) Seizure disorder Code(s): G40.909 - EPILEPSY, UNSP, NOT INTRACTABLE, WITHOUT STATUS EPILEPTICUS Status: Chronic (11) UTI (urinary tract infection) Status: Acute Qualifiers: Urinary tract infection type: acute cystitis Hematuria presence: with hematuria Qualified Code(s): N30.01 - Acute cystitis with hematuria - Plan Plan: 84YOF who was brought from the [facility] for evaluation for acute hypoxic respiratory failure with fever. Acute hypoxic respiratory failure, resolved: - In respiratory distress & hypoxic in arrival. CXR w/ NAF to explain this. Requiring non-rebreather to maintain sats. COVID-19 test negative. - Has stable on RA since 2 nights ago & maintaining adequate sats. PUI for COVID-19 infection, resolved: - negative test yesterday AM Bacteruria: - UA dirty on admission. Cx growing 25-50k cfus of E coli R to fluoroquinolones & amp & unasyn & <5k cfus of proteus so not true UTI. Will consider d/c of rocephin today. Sinusitis: - Noted on head CT done an presentation. Will consider transitioning to augmentin per peg to be continued for ~7 days. Unstageable R heel ulcer: - Reported h/o chronic R heel ulcer per [facility] nursing staff & patient arrived with decompression boot in place. Possible etiology of decompensation as WC photos show unstageable ulcer with significant purulent d/c. Prelim Cx mixed but staph aureus identified. Sensitivities & further growth & isolation pending. Continue vanc pending sensitivities. Bradycardia: - HR 40-50s over course of day yesterday. Decreased amio dosing for today to assess for improvement. EKG from yesterday showed sinus dejah. Continue telemetry monitoring. Seizure disorder: - Patient seizing/convulsing on exam s/p 2mg ativan in the ED. Keppra & valproate levels both subtherapeutic & prolactin elevated. Was given ~1500mg Keppra yesterday AM & no convulsions on evaluation later in the day or overnight per nursing staff. Increased both meds per pharmacy recs yesterday as both were dosed very low. - Head CT w/ NAF on presentation. Continue seizure precautions. CHF: - Not in acute exacerbation. Resume home meds per tube. QD weights, strict I&Os. HTN: - Continue home meds per tube. DMII: - Not on meds. Diabetic tube feeds and mild & HS SSI. ACHS accuchecks. h/o CVA with PEG tube & R-sided weakness & contractures: - Patient is aphasic & bedbound at baseline with no significant quality of life. Also has multiple infections that she will have trouble clearing due to her IC status from her age, malnutrition, and overall poor status. - Will resume home meds & PT & OT while inpatient. - Family meeting today to discuss goals of care & revisiting getting hospice on board upon return to [facility] due to very poor prognosis. PCP: June CODE STATUS: FULL CODE IVFs: SL Abx: Rocephin & vancomycin (08/17) Diet: Tube feeds CC & HH VTE PPX: Eliquis GI PPX: None Dispo: Consider transitioning stroke floor today for continued IV abx pending cultures. Addendum - Attending - Attending Attestation Date/Time: 08/20/19 1449 I personally evaluated the patient and discussed the management with Dr. Nixon I agree with the History, Examination, Assessment and Plan documented above with any addition or exceptions noted below. 84YOF admitted for fever and acute hypoxic resp failure. Will transition to PO antibiotics. MSSA bacteremia and E. Coli UTI sensitive to bactrim. Decreased amiodarone, pulse still in 50s. Family discussion today regarding goals of care. RA Sorenson
[2019-08-20] MEDS: Amiodarone 200 MG TAB PER TUBE SCH (08:20)
[2019-08-20] MEDS: levETIRAcetam 500 mg/5 ml Oral Solution PO SCH (08:20)
[2019-08-20] MEDS: cefTRIAXone\\ROCEPHIN 1 GM in Sodium Chloride 0.9% 100 ML IVPB SCH (08:20)
[2019-08-20] MEDS: Ascorbic Acid 500 mg Chewable Tablet PER TUBE SCH (08:21)
[2019-08-20] MEDS: Apixaban 5 MG TAB PO SCH (08:21)
[2019-08-20] MEDS: Aspirin Chewable 81 MG TAB PER TUBE SCH (08:21)
[2019-08-20] MEDS: Amlodipine 5 MG TAB PER TUBE SCH (08:21)
[2019-08-20] MEDS: ARGINAID PER TUBE SCH (08:21)
[2019-08-20] MEDS: Valproate Sodium 250 mg/5 ml UD Cup PER TUBE SCH (08:24)
[2019-08-20 12:24] VITALS: BP 129/58; TEMP 99.1
[2019-08-20 13:25] LABS: Vancomycin, Trough 11.9 ug/mL
--- NOTE | 2019-08-20 15:42 | EKG ---
Test Reason : HYPOXIA Blood Pressure : / mmHG Vent. Rate : 067 BPM Atrial Rate : 067 BPM P-R Int : 160 ms QRS Dur : 112 ms QT Int : 434 ms P-R-T Axes : 080 -02 060 degrees QTc Int : 458 ms Normal sinus rhythm No STEMI Normal ECG Confirmed by ARI Sharp, MIRYAM ([id number]), editor continuity and script SUORAV CARDOZA ([id number]) on 08/20/2019 3:42:16 PM Referred By: Confirmed By:MIRYAM CHAPMAN M.D.
[2019-08-20] MEDS ORDERED: Sulfameth/Trimethoprim DS 800-160mg TAB PO SCH (21:00)
--- NOTE | 2019-08-21 13:31 | DIS ---
DATE OF ADMISSION: 08/18/2019 DATE OF DISCHARGE: 08/20/2019 CONSULTATION: Palliative Care, Sukh Quinn. PROCEDURES: 1. Brain CT on 08/18/2019, which showed no acute changes. 2. Chest x-ray on 08/18/2019, which showed no evidence of consolidation or pneumothorax. PRIMARY DIAGNOSES: 1. Acute hypoxic respiratory failure secondary to sepsis from infected right heel pressure ulcer, Escherichia coli and Proteus bacteriuria, and maxillary sinusitis. 2. Infectious unstageable right heel ulcer. 3. Escherichia coli and Proteus bacteriuria. 4. Maxillary sinusitis 5. Seizure activity secondary to subtherapeutic antiepileptic therapy. 6. Sinus bradycardia. SECONDARY DIAGNOSES: 1. Chronic atrial fibrillation, on Eliquis. 2. Congestive heart failure. 3. Hypertension. 4. Diabetes mellitus type 2. 5. History of cerebrovascular accident, status post PEG tube placement. 6. Chronic compression ulcer of right heel. 7. Seizure disorder. 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 Of note, due to the patient's baseline aphasia and no family being present, history was obtained from the ER and [facility] nursing staff. The patient was noted to be in slight respiratory distress and felt warm on rounds at the [facility] earlier on the date of presentation. Vitals were then taken and her O2 saturations were noted to be in the 60s and she was febrile. She was therefore placed on O2, but her saturations would not rise above the 80s on 10 L, so she was sent to the emergency department for further evaluation. On presentation to the ER, the patient was noted to be hypoxic in the 70s-80s and was placed on a non-rebreather. She was determined to be septic due to the following: temp of 100.5F, HR in 110s, RR 39, and a BP of 93/77. A full sepsis workup was initiated including COVID- 19 swab due to her respiratory distress. Imaging was notable for R maxillary sinusitis and laboratories were significant for a possible UTI and an elevated of 3.6. Due to her fragile state and oxygen requirements, the patient was transferred to the [facility] for continued respiratory support as needed and broad-spectrum IV antibiotics overnight including Rocephin and vancomycin. Regarding her sepsis from multiple infections, the patient's vitals stabilized by the next morning. Wound Care came and evaluated her right heel ulcer and obtained a culture specimen, which was positive for MSSA and presumptive enterococcus species. In addition, her urine culture grew E. coli and presumptive Proteus species. One of two blood cultures were positive for coag-negative staph, which was presumed to be a contaminant and her influenza & COVID swabs were also negative. The patient was continued on broad-spectrum IV antibiotics until all culture sensitivities had resulted, and by the date of discharge, she was transitioned to p.o. Bactrim to be continued for a 7-day course upon discharge for treatment of all of 3 of her infections. Regarding the patient's acute hypoxic respiratory failure and respiratory distress, by the next morning, the patient had been weaned to approximately 2 L nasal cannula, and by the end of that day, she was completely weaned from all respiratory support. She was able to maintain adequate oxygen saturations on room air for the remainder of her hospital stay. Regarding the patient's acute seizure activity, the patient was noted to have periodic convulsions while in the emergency department, so she was given 2 mg of Ativan, which temporarily mitigated this. However, at the time of the admitting team's exam, these movements had resumed so she was given approximately 1500 mg of Keppra in the emergency department before transitioned to the floor. A prolactin level was obtained from her initial bloodwork and was elevated at ~55 confirming likely seizure activity. Her home medication regimen was adjusted over the course of her stay as both her valproate and Keppra levels were noted to be subtherapeutic. She was subsequently discharged on higher doses of both of these medications. Would recommend rechecking valproate and keppra serum levels within 1-2 weeks of d/c. Regarding her bradycardia, once cleared for movement out of the intermediate care unit, the patient was transferred to telemetry rather than the medical floor due to episodes of bradycardia down into the 40s noted on telemetry monitoring. An EKG was obtained, which showed sinus bradycardia and her home amiodarone dose was reduced from 200 to 100 mg b.i.d. to help mitigate this. Lastly, due to the patient's extremely poor prognosis and poor quality of life at baseline, a family meeting with the admitting team and the patient's son, Alfonzo, was conducted via telephone as the son was quarantined at home due to his testing positive for COVID-19. The purpose of this meeting was to discuss goals of care and code status. The patient's son reported that he did have plans to re-pursue hospice upon the patient's discharge, but needed to discuss it further with his other siblings fircamacho. He expressed that he would leave her OOH-DNR in place. DISPOSITION: Stable. DISCHARGE INSTRUCTIONS: 1. Location: [facility]. 2. Diet: PEG tube diet per the recs of the [facility] dietitian. 3. Activity: Activity as tolerated. 4. Followup: The patient was instructed to follow up with her PCP at [facility] within 1 week of discharge. Job ID: [id number] MTDD
--- NOTE | 2019-08-22 05:54 | PQF ---
PAOLA CUEVAS ROBERT A MD [id number] [facility]-266 [id number] CLINICAL DOCUMENTATION CLARIFICATION FORM: POST DISCHARGE Addendum to original discharge summary date: ____ Late entry note date: __ DATE:08/22/19 ATTN:Corona Sorenson Please exercise your independent, professional judgment in responding to the clarification form. Clinical indicators are provided on the bottom of this form for your review Can you please further clarify if Sepsis is ruled in or ruled out? Sepsis [ ] Ruled in diagnosis [ ] Continue to treat [ ] Resolved [ ] Ruled out diagnosis [ ] Cannot rule out diagnosis [ ] Other diagnosis please specify [ ] Unable to determine In addition, please specify: Present on Admission (POA): [ ] Yes [ ] No [ ] Unable to determine For continuity of documentation, please document condition throughout progress notes and discharge summary. Thank You. CLINICAL INDICATORS - SIGNS / SYMPTOMS / LABS ED Provider pg.3- Sepsis H and P pg.1- ,she was tachypneic, hypoxic into the 60s and febrile H and P pg.3- ROS: unobtainable due to mental status Event Note 08/17 pg.1- IMCU Admission of acute hypoxic respiratory distress 2/2 Sepsis 2/2 UTI Hospitalist PN pg.4- Bacteruria. Cx growing 25-50k cfus of E.coli VS- Temp 97.L,BP 141/64H,RR 22H, pulse 49L Labs WBC: 08/17=8.0 Labs Lactic: 08/17=3.6,2.4 08/18=1.6 Labs Procalcitonin:08/17=0.07 Collected 08/17 blood culture:coagulase neg staphylococcus RISK FACTORS 84 YEARS OLD- H and P PG.1 UTI- H and P pg.6 PUI for covid infection- H and P pg.6 Presence of PEG tube HP p1 08/17 DM HP p1 08/17 CHF HP p2 08/17 Pressure ulcer in RLE HP p2 08/17 CKD stage 3 HP p5 08/17 Dementia ED Notes p1 08/17 TREATMENTS Chest X ray 08/17 IV Fluids- MAR Urine culture-Microbiology Blood culture- Microbiology Rocephin 1gm IV- MAR Vancomycin 1gm IV- MAR (This form is maintained as a part of the permanent medical record) 2014 [employer]. All Rights Reserved [email or web address]
== END 2019-08-20 16:40 | DRG 871 ==
LOC: ERS 05:13 → IMCU/EMU 12:19 → 2NO 08-19 13:58
PROVIDERS: ADMIT Family Medicine; ATTEND Family Medicine
PROC: 8E0ZXY6 Isolation (ICD-10-PCS; principal; 2019-08-18)
DX: A41.01 Sepsis due to Methicillin susceptible Staphylococcus aureus (principal); J96.01 Acute respiratory failure with hypoxia; N30.01 Acute cystitis with hematuria; I69.351 Hemiplegia and hemiparesis following cerebral infarction affecting right dominant side; I48.20 Chronic atrial fibrillation, unspecified; I13.0 Hypertensive heart and chronic kidney disease with heart failure and stage 1 through stage 4 chronic kidney disease, or unspecified chronic kidney disease; Z66 Do not resuscitate; Z20.828 Contact with and (suspected) exposure to other viral communicable diseases; I69.320 Aphasia following cerebral infarction; F32.9 Major depressive disorder, single episode, unspecified; G40.909 Epilepsy, unspecified, not intractable, without status epilepticus; I50.9 Heart failure, unspecified; L89.610 Pressure ulcer of right heel, unstageable; J32.9 Chronic sinusitis, unspecified; N18.2 Chronic kidney disease, stage 2 (mild); E11.22 Type 2 diabetes mellitus with diabetic chronic kidney disease; Z79.84 Long term (current) use of oral hypoglycemic drugs; Z79.899 Other long term (current) drug therapy; Z79.82 Long term (current) use of aspirin; Z79.01 Long term (current) use of anticoagulants; R82.71 Bacteriuria; B96.20 Unspecified Escherichia coli [E. coli] as the cause of diseases classified elsewhere; B96.4 Proteus (mirabilis) (morganii) as the cause of diseases classified elsewhere
CPT/HCPCS: 36415; 36416; 51701; 70450; 71045; 80053; 80164; 80177; 80202; 81003; 81015; 83605; 83615; 83735; 83880; 84145; 84146; 84484; 85025; 85379; 86140; 87040; 87070; 87077; 87086; 87149; 87186; 87205; 87635; 87804; 93005; 93010; 96365; 96375; A4353; J0696; J2060; J3370; J3490; U0003

== ENCOUNTER 2019-09-27 09:36 | Emergency (ER) | payer MEDICARE, MEDICAID, OTHER ==
[2019-09-28 15:05] LABS: SARS-CoV-2 MS2 Positive; SARS-CoV-2 N Gene Negative; SARS-CoV-2 S Gene Negative; SARS-CoV-2 orf1ab Negative
== END 2019-09-27 09:42 | disposition expired ==
LOC: ERS 09:36
DX: I46.9 Cardiac arrest, cause unspecified (principal); I11.0 Hypertensive heart disease with heart failure; I50.9 Heart failure, unspecified; E11.9 Type 2 diabetes mellitus without complications; Z86.73 Personal history of transient ischemic attack (TIA), and cerebral infarction without residual deficits; I25.2 Old myocardial infarction; F32.9 Major depressive disorder, single episode, unspecified; Z79.82 Long term (current) use of aspirin; Z79.899 Other long term (current) drug therapy; Z20.828 Contact with and (suspected) exposure to other viral communicable diseases
CPT/HCPCS: 99285; U0003; 87635